=== PATIENT | female | born 1945 | race Caucasian/White ===

== ENCOUNTER 2021-11-03 09:59 | Emergency (ER) | payer MEDICARE, SELFPAY ==
[2021-11-03 10:11] VITALS: BP 100/70; PULSE 87; RESP 18; TEMP 36.9; O2SAT 86; BMI 26.6
--- NOTE | 2021-11-03 10:22 | XR_ITS ---
PROCEDURE INFORMATION: Exam: XR Chest Exam date and time: 11/03/2021 10:22 AM Age: 76 years old Clinical indication: Shortness of breath; Additional info: R/O pnuemonia TECHNIQUE: Imaging protocol: XR of the chest. Views: 2 views. COMPARISON: CR CXR1VP XR chest portable 12/17/2018 12:59 AM FINDINGS: Tubes, catheters and devices: There are sternal wires. Lungs: There are patchy infiltrates throughout the periphery of the left lung. Pleural spaces: No pleural effusion. No pneumothorax. Heart/Mediastinum: The heart is mildly enlarged. Bones/joints: Unremarkable for age. IMPRESSION: Patchy infiltrates throughout the left lung. These findings may be secondary to a bacterial or atypical pneumonia, including viral pneumonia.
[2021-11-03 11:21] VITALS: O2SAT 93
--- NOTE | 2021-11-03 11:27 | HMH.EDGENADL ---
ED Disposition Clinical Impression: CAP (community acquired pneumonia) Qualifiers: Laterality: left Lung location: lower lobe of lung Qualified Code(s): J18.9 - Pneumonia, unspecified organism Disposition: Home, Self-Care Condition on Discharge: Good Additional Instructions: Please return to the ED with any new or worsening symptoms including any worsening shortness of breath, any chest pain. Prescriptions: Amoxicillin/Potassium Clav [Augmentin 875-125 Tablet] 1 tab PO Q12H #14 tab Transmission Status: Pending to [facility] Azithromycin [Azithromycin 500mg Tab] 500 mg PO DAILY #5 tab Transmission Status: Pending to [facility] Referrals: Pawan Navarro [Primary Care Provider] - - Critical Care Critical Care Time: No Attestation: On 11/03/21, the high probability of a clinically significant, sudden or life threatening deterioration of the following system(s) required my full and direct attention, intervention and personal management. The time I documented below is in addition to time spent performing reported procedures but includes the following listed in this critical care notation. Medical Decision Making - Medical Records Medical records reviewed: Yes: I reviewed the patient's medical records. - Jose Luis Inquiry Pt receiving controlled substance: No Vital Signs: 11/03/21 10:11 11/03/21 11:21 Temperature 98.5 F Temperature Source Oral Pulse Rate [Left Radial] 87 Respiratory Rate 18 Blood Pressure [Right Arm] 100/70 L Blood Pressure Mean [Right Arm] 80 02 Sat by Pulse Oximetry 86 L 93 L Oxygen Delivery Method Room Air Nasal Cannula Oxygen Flow Rate (LPM) 2 Orders (Tests/Meds): ED MEDICATIONS Generic Name Dose Route Start Last Admin Trade Name Freq PRN Reason Stop Dose Admin Ceftriaxone Sodium 2 gm/ 100 mls @ 200 mls/hr 11/03/21 11:30 11/03/21 11:23 Sodium Chloride IV 11/17/21 11:29 200 mls/hr Q24H JONATHAN Administration Medical Decision Narrative: Patient is a 76-year-old female presents the ED today for further evaluation of cough, congestion. Patient states that symptoms been going on for the last couple of days, and has not had any red flag symptoms of syncope, chest pain, significantly worsening shortness of breath. Patient has a history of COPD, given this and the likelihood of pneumonia will order chest x-ray two-view for further evaluation. Patient not meeting any objective sepsis or sirs criteria at this time. Mild hypoxia noted at the time of triage, however patient states he has been 88% at home, and uses her supplemental oxygen throughout the day, does not had increasing usage Chest x-ray obtained with evidence of left-sided lower zone pneumonia, which could be viral or bacterial. Given the patient has a history of COPD, I have offered admission, as this would be typical for patients with COPD, however after further discussion with the patient she is requesting to go home, think this is a reasonable decision given that the patient is not hypoxic, is not having any activity limitation is able to ambulate. I will give her first dose of antibiotics here through an IV with 2 g of IV Rocephin, and we will treat outpatient with cefdinir 300 mg twice a day. Patient given instructions on the usage of this medication, given that otherwise would have this patient dated I discussed extensive return precautions with her including any worsening shortness of breath, any chest pain, any presyncope, or any new or worsening symptoms I want her to return to the ED, patient's [id number] is also at bedside, and will be able to take care of the patient at home, patient has verbalized understanding with these instructions. General Adult HPI - General Chief complaint: Shortness of Breath/Dyspnea Stated complaint: possible pna Time Seen by Provider: 11/03/21 10:05 Mode of Arrival: Ambulatory Limitations: No Limitations Description of Symptoms (Recalled from ER Tria
[2021-11-03 12:24] VITALS: BP 137/78; PULSE 78; RESP 20; TEMP 36.6; O2SAT 93
== END 2021-11-03 12:26 | disposition home or self-care (01) ==
PROVIDERS: Emergency Provider Student in an Organized Health Care Education/Training Program; PCP Family Medicine
DX: J18.9 Pneumonia, unspecified organism (principal); Z87.891 Personal history of nicotine dependence
CPT/HCPCS: 71046; 96372; 99282; J0696

== ENCOUNTER 2023-06-03 17:17 | Emergency (ER) | payer MEDICARE, SELFPAY ==
[2023-06-03 17:19] VITALS: BP 116/49; PULSE 69; RESP 18; TEMP 36.7; O2SAT 98; BMI 26.2
[2023-06-03 18:00] VITALS: BP 131/68; PULSE 72; O2SAT 94
--- NOTE | 2023-06-03 18:16 | PC.NURSE ---
LAB CALLED FOR BLOOD DRAW
[2023-06-03 18:30] VITALS: BP 109/55; PULSE 72; RESP 16; O2SAT 95
--- NOTE | 2023-06-03 18:31 | HMH.EDGENADL ---
Discharge Plan Disposition Patient Disposition: Home, Self-Care Condition: Good Chief Complaint: Dental/Oral Prescriptions Prescriptions: No Action furosemide 40 MG Tablet 40 mg PO DAILY atorvastatin 40 MG Tablet 40 mg PO DAILY isosorbide mononitrate 30 MG Tablet 30 mg PO DAILY potassium chloride [K-Tab] 10 MEQ Tablet.Er 10 meq PO DAILY aspirin [Aspir-81] 81 MG Tablet.Dr 81 mg PO DAILY metoprolol succinate 25 MG Tab.Er.24h 12.5 mg PO DAILY apixaban 5 MG tablet 5 mg PO BID amoxicillin-pot clavulanate 1 EACH tablet 1 tab PO Q12H Qty: 14 0RF azithromycin 500 MG tablet 500 mg PO DAILY Qty: 5 0RF Referrals Follow up/Referrals: Provider,Referral, MD [Primary Care Provider] - See instructions Clinical Impressions Clinical Impression: Viral pharyngitis Instructions Patient Instructions: Viral Pharyngitis Discharge ED Provider: Zakia Carter General Adult HPI General Chief complaint: Dental/Oral Stated complaint: PAIN MOUTH/EAR Time Seen by Provider: 06/03/23 17:21 Mode of Arrival: Ambulatory Source of Information: Patient Limitations: No Limitations Description of Symptoms (Recalled from ER Triage Doc. by RN): Patient reports swelling in her mouth for 1 month and bilateral ear pain. History of Present Illness HPI narrative: Patient has a PMHx significant for CAD status post CABG x3, colon cancer who presents to the ED with complaints of tongue swelling and bilateral ear pain. Patient notes that for the past 3 to 4 days, she has been experiencing tongue swelling, which is worse in the morning, and also experiencing pain from lesions on her tongue. Furthermore, patient notes that she has been experiencing bilateral ear pain which she describes as a pressure sensation. notes that in the morning, feels as if the patient's voice is muffled due to tongue swelling. Patient denies any fevers, chills, chest pain, shortness of breath. Related Data Home Medications Medication Instructions Recorded Confirmed aspirin 81 mg tablet,delayed 81 mg PO DAILY HEART HEALTH 12/17/18 11/03/21 release (Aspir-) atorvastatin 40 mg tablet 40 mg PO DAILY High cholesterol 12/17/18 11/03/21 furosemide 40 mg tablet 40 mg PO DAILY Fluid 12/17/18 11/03/21 isosorbide mononitrate 30 mg 30 mg PO DAILY High blood pressure 12/17/18 11/03/21 tablet,extended release 24 hr metoprolol succinate 25 mg 12.5 mg PO DAILY HTN 12/17/18 11/03/21 tablet,extended release 24 hr potassium chloride 10 mEq 10 meq PO DAILY Supplement 12/17/18 11/03/21 tablet,extended release (K-Tab) apixaban 5 mg tablet 5 mg PO BID Blood thinner 11/03/21 11/03/21 Previous Rx's Medication Instructions Recorded amoxicillin 875 mg-potassium 1 tab PO Q12H #14 tabs 11/03/21 clavulanate 125 mg tablet azithromycin 500 mg tablet 500 mg PO DAILY #5 tabs 11/03/21 Allergies Allergy/AdvReac Type Severity Reaction Status Date / Time No Known Allergies Allergy Verified 12/17/18 00:46 [facility] Disclaimer: The information contained in this section may have been updated after the patient was seen, as this information can be updated by other users. Social History Smoking Status: Never smoker alcohol intake: never current occupational status: retired Travel in the last 8 weeks: None ROS Obtained: Yes All systems reviewed & no additional complaints except as documented Physical Exam General General appearance: alert and in no apparent distress Head Head exam: atraumatic, normocephalic and normal inspection Eye Eye exam: Present normal appearance, PERRL and EOMI; Absent scleral icterus or nystagmus ENT ENT exam: Present normal exam, mucous membranes moist and normal external ear exam Neck Neck exam: Present normal inspection, full ROM and trachea midline Chest Chest inspection: Present normal inspection and symmetric chest wall rise; Absent tenderness Respiratory Respirator
--- NOTE | 2023-06-03 18:48 | PC.NURSE ---
LAB at to collect blood
[2023-06-03 19:09] LABS: Basophils % 0.4 % (0.1-2.0); Eosinophils # 0.1 K/mm3 (0.0-0.4); Eosinophils % 1.1 % (0.1-12.0); Hematocrit 35.4 % (37.0-47.0); Hemoglobin 11.4 g/dL (12.2-16.2); Lymphocytes # 1.4 K/mm3 (0.7-4.5); Lymphocytes % 20.1 % (10-50); Mean Corpuscular HGB Conc 32.2 g/dL (31.8-35.4); Mean Corpuscular Hemoglobin 30.2 pg (27.0-31.2); Mean Corpuscular Volume 93.9 fl (81-99); Mean Platelet Volume 9.7 fl (7.4-10.4); Monocytes # 0.3 K/mm3 (0.1-1.0); Monocytes % 4.9 % (1.7-9.3); Neutrophils # 4.9 K/mm3 (1.8-7.8); Neutrophils % 73.5 % (37.0-80.0); Platelet Count 258 K/mm3 (142-424); Red Blood Count 3.77 M/mm3 (4.20-5.40); Red Cell Distribution Width 14.6 % (11.5-17.5); White Blood Count 6.7 K/mm3 (4.8-10.8)
[2023-06-03 19:14] LABS: Alanine Aminotransferase 15 U/L (12-78); Albumin Level 3.4 g/dl (3.5-5.0); Alkaline Phosphatase 93 U/L (38-126); Anion Gap 9.6 mEq/L (5-15); Aspartate Amino Transferase 24 U/L (14-36); Bilirubin,Total 0.9 mg/dl (0.2-1.3); Blood Urea Nitrogen 10 mg/dl (7-17); Carbon Dioxide 34 mmol/L (22.0-30.0); Chloride 100 mmol/L (98-107); Creatinine Clearance Estimated 54 mL/min (50-200); Estimated Glomerular Filt Rate 61 ml/min (>60); GFR (African American) 74 ML/MIN (>60); Globulin 3.5 g/dL (1.3-3.2); Glucose 100 mg/dl (74-100); Potassium 3.6 mmoL/L (3.5-5.1); Sodium 140 mmol/L (136-145); Total Protein,Serum 6.9 g/dl (6.3-8.2)
[2023-06-03 20:13] VITALS: BP 112/75; PULSE 70; RESP 16; TEMP 36.7; O2SAT 95
== END 2023-06-03 20:24 | disposition home or self-care (01) ==
PROVIDERS: Emergency Provider Emergency Medicine
DX: J02.9 Acute pharyngitis, unspecified (principal); B34.9 Viral infection, unspecified; H92.03 Otalgia, bilateral; I25.10 Atherosclerotic heart disease of native coronary artery without angina pectoris
CPT/HCPCS: 80053; 85025; 99283

== ENCOUNTER → 2023-07-11 15:14 | Outpatient (CLI) | payer MEDICARE, SELFPAY ==
--- NOTE | 2023-07-11 15:18 | US_ITS ---
FINAL REPORT CLINICAL HISTORY: ENLARGED LYMPHNODE FINDINGS: Limited sonographic images of the neck soft tissue were obtained. No enlarged lymph nodes are identified. The parotids and submandibular glands are normal. No fluid collection is identified. IMPRESSION: No enlarged lymph nodes identified. Reviewed, Interpreted and Dictated by Sukhjinder Massey III, MD Transcribed by Franca Murillo Authenticated and . [facility]
== END ==
LOC: RAD 15:14
PROVIDERS: Visit Provider Nurse Practitioner Family
DX: R59.0 Localized enlarged lymph nodes (principal)
CPT/HCPCS: 76536

== ENCOUNTER 2023-09-01 15:32 | Inpatient (IN) | payer MEDICARE, SELFPAY ==
[2023-09-01] VITALS (12 sets, daily range): BP systolic 88–121; BP diastolic 48–74; PULSE 78–95; RESP 16–25; TEMP 36.7–37.1; O2SAT 79–97; BMI 22.8; BMI 24.1
--- NOTE | 2023-09-01 15:42 | ECG_ITS ---
APPROVED REPORT Exam: Resting ECG HR:92 bpm ECG Measurements Heart Rate 92 AXES WY 191 P 70 QRSd 152 QRS 15 QT 399 T 5 QTc 449 Conclusion SINUS RHYTHM WITH OCCASIONAL SUPRAVENTRICULAR PREMATURE COMPLEXES INTRAVENTRICULAR CONDUCTION DELAY [130+ ms QRS DURATION] INFERIOR MYOCARDIAL INFARCTION , PROBABLY OLD [40+ ms Q WAVE AND/OR ST/T ABNORMALITY IN II/aVF] ABNORMAL ECG UNCONFIRMED REPORT Electronically signed by : Ryan Hagen MD 09/02/2023 10:18:43
--- NOTE | 2023-09-01 15:47 | PC.NURSE ---
ROOM AIR SAT 79%, PT REPORTS SHE WEARS O2 AT 2.5L/NC AT NIGHT. PT PLACED ON 2.5L/NC AT THIS TIME PT REPORTS ALLERGY TO STEROIDS THEY DON'T AGREE WITH ME DR MOSHER NOTIFIED
--- NOTE | 2023-09-01 16:05 | XR_ITS ---
FINAL REPORT CLINICAL HISTORY: dyspnea COMPARISON: 11/03/2021 FINDINGS: SINGLE-VIEW CHEST The heart size is normal. The patient is status post median sternotomy. The lungs are clear. There is no pneumothorax. IMPRESSION: No acute cardiopulmonary process. Reviewed, Interpreted and Dictated by Sukhjinder Massey III, MD Transcribed by Franca Murillo Authenticated and [facility]
--- NOTE | 2023-09-01 16:05 | PC.NURSE ---
DR MOSHER AT BEDSIDE
--- NOTE | 2023-09-01 16:08 | HMH.EDGENADL ---
Discharge Plan Disposition Patient Disposition: Admitted Prescriptions Prescriptions: No Action furosemide 40 MG Tablet 40 mg PO DAILY atorvastatin 40 MG Tablet 40 mg PO DAILY isosorbide mononitrate 30 MG Tablet 30 mg PO DAILY potassium chloride [K-Tab] 10 MEQ Tablet.Er 10 meq PO DAILY aspirin [Aspir-81] 81 MG Tablet.Dr 81 mg PO DAILY metoprolol succinate 25 MG Tab.Er.24h 12.5 mg PO DAILY apixaban 5 MG tablet 5 mg PO BID amoxicillin-pot clavulanate 1 EACH tablet 1 tab PO Q12H Qty: 14 0RF azithromycin 500 MG tablet 500 mg PO DAILY Qty: 5 0RF Referrals Follow up/Referrals: Provider,Referral, MD [Primary Care Provider] - See instructions Clinical Impressions Clinical Impression: Acute hypoxic respiratory failure, COVID-19, Non-ST elevation PR (NSTEMI), Compensated cardiac failure, Generalized weakness Discharge ED Provider: Ludwin Chao General Adult HPI General Chief complaint: Weakness Stated complaint: covid positive and weakness Time Seen by Provider: 09/01/23 16:00 Mode of Arrival: Wheelchair Source of Information: Patient Limitations: No Limitations Description of Symptoms (Recalled from ER Triage Doc. by RN): PT REPORTS + AT HOME COVID TEST, FATIGUE, SORE THROAT, COUGH AND CONGESTION History of Present Illness HPI narrative: Patient is a 78-year-old female presented today with multiple complaints. She states she has been fatigued having blood coming from her right ear for which she is on amoxicillin starting yesterday, sore throat, cough, congestion and a home positive COVID test today. She denies any fevers or chills. Denies any chest pain. Denies any other symptoms. Related Data Home Medications Medication Instructions Recorded Confirmed aspirin 81 mg tablet,delayed 81 mg PO DAILY HEART HEALTH 12/17/18 11/03/21 release (Aspir-) atorvastatin 40 mg tablet 40 mg PO DAILY High cholesterol 12/17/18 11/03/21 furosemide 40 mg tablet 40 mg PO DAILY Fluid 12/17/18 11/03/21 isosorbide mononitrate 30 mg 30 mg PO DAILY High blood pressure 12/17/18 11/03/21 tablet,extended release 24 hr metoprolol succinate 25 mg 12.5 mg PO DAILY HTN 12/17/18 11/03/21 tablet,extended release 24 hr potassium chloride 10 mEq 10 meq PO DAILY Supplement 12/17/18 11/03/21 tablet,extended release (K-Tab) apixaban 5 mg tablet 5 mg PO BID Blood thinner 11/03/21 11/03/21 Previous Rx's Medication Instructions Recorded amoxicillin 875 mg-potassium 1 tab PO Q12H #14 tabs 11/03/21 clavulanate 125 mg tablet azithromycin 500 mg tablet 500 mg PO DAILY #5 tabs 11/03/21 Allergies Allergy/AdvReac Type Severity Reaction Status Date / Time STERIODS AdvReac Uncoded 09/01/23 16:21 [facility] Disclaimer: The information contained in this section may have been updated after the patient was seen, as this information can be updated by other users. Social History Smoking Status: Former smoker alcohol intake: never current occupational status: retired Travel in the last 8 weeks: None ROS Obtained: Yes All systems reviewed & no additional complaints except as documented Physical Exam General General appearance: alert Respiratory Respiratory exam: Present normal lung sounds bilaterally (Bibasilar crackles 79% on room air); Absent respiratory distress, wheezes, stridor, accessory muscle use or prolonged expiratory phase Cardiovascular Cardiovascular exam: Present regular rate; Absent tachycardia Abdominal Exam Abdominal exam: Present soft; Absent distention or tenderness Neurological Exam Neurological exam: Present alert, oriented X3, CN II-XII intact, normal gait and motor sensory deficit Medical Decision Making Jose Luis Inquiry Pt receiving controlled substance: No Vital Signs: 09/01/23 15:34 09/01/23 15:40 09/01/23 16:00 Temperature 98.0 F Temperature Source Oral Pulse Rate 94 H 89 Pulse Rate [Apical] 95 H Respiratory Rate 1
[2023-09-01 16:09] LABS: Influenza A, PCR Not Detected (NotDetected); Influenza B, PCR Not Detected (NotDetected)
--- NOTE | 2023-09-01 16:13 | PC.NURSE ---
XR AT BEDSIDE
[2023-09-01 16:15] LABS: Basophils % 0.3 % (0.1-2.0); Eosinophils % 0.3 % (0.1-12.0); Hematocrit 32.8 % (37.0-47.0); Hemoglobin 10.5 g/dL (12.2-16.2); Lymphocytes # 1.5 K/mm3 (0.7-4.5); Lymphocytes % 29.3 % (10-50); Mean Corpuscular HGB Conc 32.1 g/dL (31.8-35.4); Mean Corpuscular Hemoglobin 28.2 pg (27.0-31.2); Mean Corpuscular Volume 87.9 fl (81-99); Mean Platelet Volume 10.8 fl (7.4-10.4); Monocytes # 0.4 K/mm3 (0.1-1.0); Monocytes % 8.9 % (1.7-9.3); Neutrophils # 3.1 K/mm3 (1.8-7.8); Neutrophils % 61.3 % (37.0-80.0); Platelet Count 226 K/mm3 (142-424); Red Blood Count 3.73 M/mm3 (4.20-5.40); Red Cell Distribution Width 17.3 % (11.5-17.5)
[2023-09-01 16:27] LABS: VBG Base Excess 6.7 mmol/L (-2.4-2.3); VBG HCO3 31.1 mmol/L (23-30); VBG Oxygen Saturation 72.6 % (50-70); VBG PCO2 48.2 mmol/L (35-51); VBG PH 7.43 mmol/L (7.31-7.41); VBG PO2 40.5 mmol/L (28-40); VBG Total CO2 32.5 mmol/L (23-27)
[2023-09-01 16:30] LABS: Chloride 94 mmol/L (98-107); Potassium 3.2 mmoL/L (3.5-5.1); Sodium 135 mmol/L (136-145)
[2023-09-01 16:32] LABS: Alanine Aminotransferase 28 U/L (12-78); Aspartate Amino Transferase 99 U/L (14-36); Blood Urea Nitrogen 15 mg/dl (7-17); Creatinine Clearance Estimated 49 mL/min (50-200); Estimated Glomerular Filt Rate 61 ml/min (>60); GFR (African American) 74 ML/MIN (>60)
[2023-09-01 16:33] LABS: Albumin Level 3.5 g/dl (3.5-5.0); Albumin/Globulin Ratio 1.1 (1.1-1.8); Alkaline Phosphatase 79 U/L (38-126); Anion Gap 7.2 mEq/L (5-15); Bilirubin,Total 0.7 mg/dl (0.2-1.3); Calcium 8.3 mg/dl (8.4-10.2); Carbon Dioxide 37 mmol/L (22.0-30.0); Globulin 3.2 g/dL (1.3-3.2); Glucose 121 mg/dl (74-100); Magnesium 1.9 mg/dl (1.6-2.3); Phosphorous 3.3 mg/dl (2.5-4.5); Total Protein,Serum 6.7 g/dl (6.3-8.2)
[2023-09-01 16:42] LABS: Coronavirus 19, PCR Detected (NotDetected)
[2023-09-01 16:43] LABS: NT Pro Brain Natriuretic Pep. 12500 pg/mL (0-450)
--- NOTE | 2023-09-01 16:48 | PC.NURSE ---
1646 CRITICAL TROP 13.1 RECEIVED FROM [facility] IN LAB. PT NAME AND R/V, DR MOSHER NOTIFIED AT THIS TIME. NO NEW ORDERS 1647 DR MOSHER AT PT'S BEDSIDE
--- NOTE | 2023-09-01 17:19 | PC.NURSE ---
Dr. Chao on phone consult with Dr. Bolton
--- NOTE | 2023-09-01 17:28 | PC.NURSE ---
Dr. Chao speaking with hospitalist
--- OUTSIDE RECORDS SUMMARY | 2023-09-01 18:30 | XMS_ITS | Continuity of Care Document ---
Author Name Unknown Address [address], [place] [id number] Organization [facility] Phone Care Team Providers Care Snow Plow Tractor Operator Name Role Phone ECTOR NICOLE Unavailable ECTOR NICOLE Primary Attending ECTOR NICOLE Admitting DECLINED, PCP Primary Care Unavailable ALLERGIES AND ADVERSE REACTIONS ALLERGIES AND ADVERSE REACTIONS Code System Allergy Substance Adverse Reaction Date Reaction (Severity) Comment Status Reported By Updated By No Known Allergies [id number] on November 27, 2021 2:36:51 PM [facility] RESULTS Patient: LESLEY Garcia Date of : [birth year] LABORATORY RESULTS Information is not available LABORATORY NARRATIVE RESULTS Information is not available RADIOLOGY RESULTS ORDER 100: CT NECK SOFT TISS UE W (LOINC: 58288-0) ORDER DATE: July 28, 2023 2:09:00 PM [facility] PATHOLOGY NARRATIVE RESULTS Information is not available MICROBIOLOGY RESULTS No Micro Labs/Results Exist for Patient BLOOD ADMIN RESULTS Information is not available MEDICATIONS HOME MEDICATIONS Status RXNORM Medication Dose Route Frequency Dates Comments R eported By
--- OUTSIDE RECORDS SUMMARY | 2023-09-01 18:30 | XMS_ITS | Continuity of Care Document ---
Author Name Unknown Address [address] [place] [phone] Organization [facility] Phone Care Team Providers Care Bobbin Presser Name Role Phone ECTOR NICOLE Unavailable ECTOR NICOLE Primary Attending VICTOR MANUEL PLUNKETT Primary Care ECTOR NICOLE Admitting ALLERGIES AND ADVERSE REACTIONS ALLERGIES AND ADVERSE REACTIONS Code System Allergy Substance Adverse Reaction Date Reaction (Severity) Comment Status Reported By Updated By No Known Allergies [id number] on November 27, 2021 2:36:51 PM UTC RESULTS Patient: LESLEY Garcia Date of : [birth year] LABORATORY RESULTS ORDER 300: CBC AUTO W DIFF ( LOINC: 70824-9) ORDER DATE: July 22, 2023 9:03:00 PM UTC Specimen Source: Whole Blood PERFORMING LAB: [address] [id number] Result Comment: Final Result Date: July 22, 2023 9:31:00 PM UTC (TECH: HC) LOINC TEST FLAG RESULT REFERENCE RANGE UPDA DORIS BY 6690-2 Leukocytes [#/volume ] in Blood by Automated count N 7.6 10^3/uL 4.5 10^3/uL - 11.5 10^3/uL July 22, 2023 9:31:00 PM UTC (TECH: HC) 789-8 Erythrocytes [#/volu me] in Blood by Automated count L 3.80 10^6/uL 4.25 10^6/uL - 5.57 10^6/uL July 22, 2023 9:31:00 PM UTC (TECH: HC) 718-7 Hemoglobin
--- OUTSIDE RECORDS SUMMARY | 2023-09-01 18:30 | XMS_ITS | Continuity of Care Document ---
Author Name Unknown Address [address] [place], [place] [id number] Organization [facility] Phone Care Team Providers Care Financial Aid Counselor Name Role Phone ECTOR NICOLE Unavailable ECTOR NICOLE Primary Attending ECTOR NICOLE Admitting DECLINED, PCP Primary Care Unavailable ALLERGIES AND ADVERSE REACTIONS ALLERGIES AND ADVERSE REACTIONS Code System Allergy Substance Adverse Reaction Date Reaction (Severity) Comment Status Reported By Updated By No Known Allergies [id number] on November 27, 2021 2:36:51 PM [facility] RESULTS Patient: LESLEY Garcia Date of : [birth year] LABORATORY RESULTS Information is not available LABORATORY NARRATIVE RESULTS Information is not available RADIOLOGY RESULTS ORDER 100: CT NECK SOFT TISS UE W (LOINC: 58901-8) ORDER DATE: July 28, 2023 2:09:00 PM [facility] PATHOLOGY NARRATIVE RESULTS Information is not available MICROBIOLOGY RESULTS No Micro Labs/Results Exist for Patient BLOOD ADMIN RESULTS Information is not available MEDICATIONS HOME MEDICATIONS Status RXNORM Medication Dose Route Frequency Dates Comments R eported By
--- OUTSIDE RECORDS SUMMARY | 2023-09-01 18:30 | XMS_ITS | Continuity of Care Document ---
Author Name Unknown Address [address] [place] [phone] Organization [facility] Phone Care Team Providers Care Tip Tester Name Role Phone ECTOR NICOLE Unavailable ECTOR NICOLE Primary Attending VICTOR MANUEL PLUNKETT Primary Care ECTOR NICOLE Admitting ALLERGIES AND ADVERSE REACTIONS ALLERGIES AND ADVERSE REACTIONS Code System Allergy Substance Adverse Reaction Date Reaction (Severity) Comment Status Reported By Updated By No Known Allergies [id number] on November 27, 2021 2:36:51 PM UTC RESULTS Patient: LESLEY Garcia Date of : [birth year] LABORATORY RESULTS ORDER 100: BUN (LOINC: 3094- 0) ORDER DATE: July 22, 2023 9:03:00 PM UTC Specimen Source: Serum/Plasm a PERFORMING LAB: [address] [id number] Result Comment: Final Result Date: July 22, 2023 11:21:00 PM UTC (TECH: RJV) LOINC TEST FLAG RESULT REFERENCE RANGE UPDA DORIS BY 3094-0 Urea nitrogen [Mass/volume] in Serum or Plasma N 10 mg/dL 7 mg/dL - 18 mg/dL July 22 023 11:21:00 PM UTC (TECH: RJV) ORDER 200: CREATININE (LOINC : 2160-0) ORDER DATE: July 22, 2023 9:03:00 PM UTC Specimen Source: Serum/Plasm a PERFORMING LAB: [address] [id number] Res
--- OUTSIDE RECORDS SUMMARY | 2023-09-01 18:30 | XMS_ITS | Clinical Summary ---
Author Name Unknown Address [address] [place] [address] Phone Organization [facility] Address [address] [place] [address] Phone Care Team Providers Care Perfume And Toilet Water Maker Name Role Bhavani Wilson Unavailable Conditions or Problems Problem Name Problem Code Onset Date Status Entry Date Provider Comment Standard Description Annotate Smoking cessation counseling 753807014 (SNOMED CT) 12/03 Active 12/03 Bhavani Driscoll Procedure carried out on subject COPD with acute exacerbation 786393973 (SNOMED CT) 11/30 Active 11/30 Ramila L Acute exacerbation of chronic obstructive airways disease COVID-19 coronavirus Pneumonia (J12.82) 201248643 (SNOMED CT) 11/30 Active 11/30 Ramila L COVID-19 Acute on chronic respiratory failure with hypoxia 34424606 (SNOMED CT) 11/30 Active 11/30 Ramila L Acute respiratory failure Chronic systolic heart failure 500895951 (SNOMED CT) 11/30 Active 11/30 Ramila L Chronic
--- OUTSIDE RECORDS SUMMARY | 2023-09-01 18:30 | XMS_ITS | Continuity of Care Document ---
Author Name Unknown Address [address] [place] [phone] Organization [facility] Phone Care Team Providers Care Sort Supervisor Name Role Phone ECTOR NICOLE Unavailable ECTOR NICOLE Primary Attending VICTOR MANUEL PLUNKETT Primary Care ECTOR NICOLE Admitting ALLERGIES AND ADVERSE REACTIONS ALLERGIES AND ADVERSE REACTIONS Code System Allergy Substance Adverse Reaction Date Reaction (Severity) Comment Status Reported By Updated By No Known Allergies [id number] on November 27, 2021 2:36:51 PM UTC RESULTS Patient: LESLEY Garcia Date of : [birth year] LABORATORY RESULTS ORDER 100: BUN (LOINC: 3094- 0) ORDER DATE: July 22, 2023 9:03:00 PM UTC Specimen Source: Serum/Plasm a PERFORMING LAB: [address] [id number] Result Comment: Final Result Date: July 22, [...] UTC Specimen Source: Serum/Plasm a PERFORMING LAB: [address] [id number] Res
--- OUTSIDE RECORDS SUMMARY | 2023-09-01 18:30 | XMS_ITS | Continuity of Care Document ---
Author Name Unknown Address [address] [place] [phone] Organization [facility] Phone Care Team Providers Care Mountain Or Glacier Guide Name Role Phone ECTOR NICOLE Unavailable ECTOR NICOLE Primary Attending VICTOR MANUEL PLUNKETT Primary Care ECTOR NICOLE Admitting ALLERGIES AND ADVERSE REACTIONS ALLERGIES AND ADVERSE REACTIONS Code System Allergy Substance Adverse Reaction Date Reaction (Severity) Comment Status Reported By Updated By No Known Allergies [id number] on November 27, 2021 2:36:51 PM UTC RESULTS Patient: LESLEY Garcia Date of : [birth year] LABORATORY RESULTS ORDER 100: BUN (LOINC: 3094- 0) ORDER DATE: July 22, 2023 9:03:00 PM UTC Specimen Source: Serum/Plasm a PERFORMING LAB: [address] [id number] Result Comment: Final Result Date: July 22, [...] UTC Specimen Source: Serum/Plasm a PERFORMING LAB: [address] [id number] Res
--- NOTE | 2023-09-01 20:03 | EXP.HP ---
History of Present Illness *Admission Date: 09/01/23 *History of present illness: This is a 78-year-old female with PMHx of CHF, CAD s/p CABG, Afib, who presented today increased and worsening shortness of breath and weakness. She has multiples complaints. Patient usually on 2L of NC at bedtime. Patient reported about 3 weeks ago, having a chest pain, that increased with excerption. patient did took two nitroglycerin SL and improved but never completly resolved. After that has been increasing her SOB and fatigue. Recently, she states she has been fatigued having blood coming from her right ear for which she is on amoxicillin starting yesterday, sore throat, cough, congestion and a home positive COVID test today. She denies any fevers or chills. Denies any chest pain. Denies any other symptoms. Admitted for further treatment. [facility] Disclaimer: The information contained in this section may have been updated after the patient was seen, as this information can be updated by other users. Medical History (Updated 09/01/23 @ 22:42 by Andrés Lantigua APRN) Colon cancer Dementia Myocardial infarction Surgical History (Updated 09/01/23 @ 22:26 by Andrés Lantigua APRN) H/O heart artery stent History of colon resection Hx of CABG Hx of cholecystectomy Status post carotid surgery Social History (Updated 09/01/23 @ 20:04 by Mayda Goff RN) Smoking Status: Former smoker alcohol intake: never current occupational status: retired Travel in the last 8 weeks: None Review of Systems Review of Systems Review of systems:: pertinent systems reviewed and negative unless documented below Meds Home Medications and Allergies Home Medications Medication Instructions Recorded Confirmed Type aspirin 81 mg tablet,delayed 81 mg PO DAILY HEART HEALTH 12/17/18 09/01/23 History release (Aspir-) atorvastatin 40 mg tablet 40 mg PO DAILY High cholesterol 12/17/18 09/01/23 History furosemide 40 mg tablet 40 mg PO DAILY Fluid 12/17/18 09/01/23 History isosorbide mononitrate 30 mg 30 mg PO DAILY High blood pressure 12/17/18 09/01/23 History tablet,extended release 24 hr metoprolol succinate 25 mg 12.5 mg PO DAILY HTN 12/17/18 09/01/23 History tablet,extended release 24 hr potassium chloride 10 mEq 10 meq PO DAILY Supplement 12/17/18 09/01/23 History tablet,extended release (K-Tab) apixaban 5 mg tablet 5 mg PO BID Blood thinner 11/03/21 09/01/23 History amoxicillin 500 mg-potassium 1 tab PO BID ear infection 09/01/23 09/01/23 History clavulanate 125 mg tablet nitroglycerin 0.4 mg sublingual 0.4 mg sublingual Q5MINP PRN Angina 09/01/23 09/01/23 History tablet (Nitrostat) ondansetron 8 mg disintegrating 8 mg translingual Q8H PRN Nausea 09/01/23 09/01/23 History tablet And Vomiting ranolazine 500 mg tablet,extended 500 mg PO BID 09/01/23 09/01/23 History release,12 hr New Prescriptions to Start Prescriptions: Allergies Allergy/AdvReac Type Severity Reaction Status Date / Time STERIODS AdvReac Uncoded 09/01/23 16:21 Exam Data for Last 24 hours Vital signs and Labs for Last 24 Hours: Temp Pulse Resp BP Pulse Ox O2 Del Method O2 Flow Rate 98.6 F 84 18 101/60 L 93 L Room Air 3 09/01/23 19:55 09/01/23 19:55 09/01/23 19:55 09/01/23 19:55 09/01/23 19:55 09/01/23 19:55 09/01/23 17:30 Laboratory Results - last 24 hr 09/01/23 16:00: WBC 5.0, RBC 3.73 L, Hgb 10.5 L, Hct 32.8 L, MCV 87.9, MCH 28.2, MCHC 32.1, RDW 17.3, Plt Count 226, MPV 10.8 H, Neut % (Auto) 61.3, Lymph % (Auto) 29.3, [place] % (Auto) 8.9, Eos % (Auto) 0.3, Baso % (Auto) 0.3, Neut # (Auto) 3.1, Lymph # (Auto) 1.5, [place] # (Auto) 0.4, Eos # (Auto) 0.0, Baso # (Auto) 0.0, Sodium 135 L, Potassium 3.2 L, Chloride 94 L, Carbon Dioxide 37 H, Anion Gap 7.2, BUN 15, Creatinine 0.90, Estimated Creat Clear 49, Estimated GFR 61, Est GFR ( Amer) 74, Glucose 121 H, Calcium 8.3 L, Phosphorus 3.3, Magnesium 1.9, Total Bilir
--- NOTE | 2023-09-01 20:24 | PC.NURSE ---
Pt a/0x4. Pt lung sounds clear, heart rhythm regular, st depression on tele. Pt states she has felt mild-moderate intermittent chest pain for the past week. Granddaughter in room states she went to check on pt today and pt looked very sick and pt was SOA so she gave her a home covid test that was positive. Pt normally wears 2L nc at night at home but is currently requiring 2 L while awake. Due to symptoms, pt granddaughter brought pt to ER. Pt and family both agreeable to DNI status at this time.
[2023-09-02] VITALS (9 sets, daily range): BP systolic 93–115; BP diastolic 50–60; PULSE 70–90; RESP 16–18; TEMP 36.7–37.1; O2SAT 90–95; BMI 24.3
--- NOTE | 2023-09-02 00:13 | PC.NURSE ---
food and drinks moved off of BS table at this time. Pt reminded she is NPO at this time. Pt verbalizes understanding.
--- NOTE | 2023-09-02 04:36 | PC.NURSE ---
Pt continues to necessitate 2 L nc at all times to keep o2 >90%. A/Ox4. Pt has not voiced any c/o to staff t/o shift. Ambulating to BR with 1x assist. NPO since midnight. Pt in airborne/contact precautions. Call light within reach.
--- NOTE | 2023-09-02 07:22 | EXP.ACUTE.PN ---
Subjective *Date: 09/02/23 *Time: 17:31 Interval history: Patient stable on 2 L this morning on exam. Denies any further chest pain. No nausea or vomiting. N.p.o. pending cardiology eval. Troponin stable on serial labs overnight. Medical Exam Vital signs and Labs for Last 24 Hours: Vital Signs Temp Pulse Pulse Resp BP BP Pulse Ox 09/02/23 07:00 09/02/23 05:00 09/02/23 04:00 84 09/02/23 04:00 98.7 F 88 18 115/60 93 L 09/02/23 03:00 09/02/23 00:54 09/02/23 00:00 83 09/01/23 23:57 98.8 F 81 16 90/48 L 95 09/01/23 22:51 09/01/23 20:00 82 09/01/23 21:00 09/01/23 19:55 98.6 F 84 18 101/60 L 93 L 09/01/23 20:00 09/01/23 18:42 98.0 F 82 17 99/60 L 92 L 09/01/23 18:19 98.2 F 85 20 99/60 L 09/01/23 18:00 78 22 99/60 L 94 L 09/01/23 17:30 82 18 100/59 L 93 L 09/01/23 16:49 85 18 97/63 L 92 L 09/01/23 16:30 79 22 88/53 L 92 L 09/01/23 16:00 89 25 H 121/74 93 L 09/01/23 15:40 94 H 100/66 L 93 L 09/01/23 15:34 98.0 F 95 H 18 100/66 L 79 L O2 Del Method O2 Flow Rate 09/02/23 07:00 Nasal Cannula 2 09/02/23 05:00 Nasal Cannula 2 09/02/23 04:00 09/02/23 04:00 Nasal Cannula 2 09/02/23 03:00 Nasal Cannula 2 09/02/23 00:54 Nasal Cannula 2 09/02/23 00:00 09/01/23 23:57 Nasal Cannula 2 09/01/23 22:51 Nasal Cannula 2 09/01/23 20:00 09/01/23 21:00 Nasal Cannula 2 09/01/23 19:55 Nasal Cannula 2 09/01/23 20:00 Nasal Cannula 2 09/01/23 18:42 Room Air 09/01/23 18:19 Room Air 09/01/23 18:00 09/01/23 17:30 Nasal Cannula 3 09/01/23 16:49 09/01/23 16:30 09/01/23 16:00 Nasal Cannula 3 09/01/23 15:40 Nasal Cannula 3 09/01/23 15:34 Room Air Intake and Output 09/01/23 09/01/23 09/02/23 15:59 23:59 07:59 Output Total 700 / 700 0 / 0 Balance -700 / -700 0 / 0 Output: Output, Urine Amount 700 / 700 0 / 0 Other: Number of Unmeasured Voids 1 Weight 64.41 kg 65.799 kg 66.315 kg Patient Weight 09/02/23 23:59 Weight 66.315 kg Laboratory Results - last 24 hr 09/01/23 16:00: WBC 5.0, RBC 3.73 L, Hgb 10.5 L, Hct 32.8 L, MCV 87.9, MCH 28.2, MCHC 32.1, RDW 17.3, Plt Count 226, MPV 10.8 H, Neut % (Auto) 61.3, Lymph % (Auto) 29.3, [place] % (Auto) 8.9, Eos % (Auto) 0.3, Baso % (Auto) 0.3, Neut # (Auto) 3.1, Lymph # (Auto) 1.5, [place] # (Auto) 0.4, Eos # (Auto) 0.0, Baso # (Auto) 0.0, Sodium 135 L, Potassium 3.2 L, Chloride 94 L, Carbon Dioxide 37 H, Anion Gap 7.2, BUN 15, Creatinine 0.90, Estimated Creat Clear 49, Estimated GFR 61, Est GFR ( Amer) 74, Glucose 121 H, Calcium 8.3 L, Phosphorus 3.3, Magnesium 1.9, Total Bilirubin 0.7, AST 99 H, ALT 28, Alkaline Phosphatase 79, Troponin I 13.10 H, NT-Pro-B Natriuret Pep 35817 H, Total Protein 6.7, Albumin 3.5, Globulin 3.2, Albumin/Globulin Ratio 1.1, SARS-CoV-2 (PCR) Detected A, Influenza A Untype (PCR) Not detected, Influenza Type B (PCR) Not detected 09/01/23 16:19: VBG pH 7.43 H, VBG pCO2 48.2, VBG pO2 40.5 H, VBG HCO3 31.1 H, VBG Total CO2 32.5 H, VBG O2 Saturation 72.6 H, VBG Base Excess 6.7 H 09/01/23 17:35: Lactate 1.0 09/01/23 20:25: Troponin I 11.70 H 09/01/23 22:00: Troponin I 11.80 H I & O for Labs for Last 24 Hours: Intake & Output 08/30/23 08/31/23 09/01/23 09/02/23 23:59 23:59 23:59 23:59 Output Total 700 / 700 0 / 0 Balance -700 / -700 0 / 0 Weight 65.799 kg 66.315 kg Constitutional: Present no acute distress, average body habitus and chronically ill appearing Respiratory: Present normal respiratory effort; Absent rhonchi, wheezes or crackles Cardiac: Present Reg Rate and Rhythm GI: Present normal bowel sounds; Absent tenderness Extremities: Present normal inspection and full ROM Skin: Present intact; Absent erythema Neuro: Present Grossly Intact, alert, awake, oriented x 3 and moves all extremities Assessment and Plan *Assessmen
--- NOTE | 2023-09-02 07:33 | HMH.PHAINT1 ---
Pharmacy Intervention Comments: Med reconciliation completed using external fill history and patient interview
[2023-09-02 08:46] LABS: Basophils % 0.2 % (0.1-2.0); Eosinophils % 0.6 % (0.1-12.0); Hematocrit 29.5 % (37.0-47.0); Hemoglobin 9.7 g/dL (12.2-16.2); Lymphocytes # 1.2 K/mm3 (0.7-4.5); Lymphocytes % 26.8 % (10-50); Mean Corpuscular HGB Conc 32.7 g/dL (31.8-35.4); Mean Corpuscular Hemoglobin 28.5 pg (27.0-31.2); Mean Platelet Volume 10.9 fl (7.4-10.4); Monocytes # 0.4 K/mm3 (0.1-1.0); Monocytes % 8.1 % (1.7-9.3); Neutrophils % 64.4 % (37.0-80.0); Platelet Count 199 K/mm3 (142-424); Red Blood Count 3.39 M/mm3 (4.20-5.40); Red Cell Distribution Width 17.1 % (11.5-17.5); White Blood Count 4.6 K/mm3 (4.8-10.8)
[2023-09-02 08:57] LABS: Chloride 99 mmol/L (98-107); Sodium 137 mmol/L (136-145)
[2023-09-02 08:58] LABS: Potassium 3.3 mmoL/L (3.5-5.1)
[2023-09-02 09:00] LABS: Alanine Aminotransferase 23 U/L (12-78); Alkaline Phosphatase 67 U/L (38-126); Anion Gap 5.3 mEq/L (5-15); Aspartate Amino Transferase 79 U/L (14-36); Bilirubin,Total 0.7 mg/dl (0.2-1.3); Blood Urea Nitrogen 16 mg/dl (7-17); Carbon Dioxide 36 mmol/L (22.0-30.0); Cholesterol 95 mg/dl (140-200); Creatinine Clearance Estimated 50 mL/min (50-200); Estimated Glomerular Filt Rate 61 ml/min (>60); GFR (African American) 74 ML/MIN (>60); Triglycerides 86 mg/dl (30-150); VLDL Cholesterol 17 mg/dL (0-40)
[2023-09-02 09:01] LABS: Albumin/Globulin Ratio 1.1 (1.1-1.8); Calcium 7.9 mg/dl (8.4-10.2); Chol/HDL Ratio 3.8 (1-3.5); Globulin 2.8 g/dL (1.3-3.2); Glucose 103 mg/dl (74-100); HDL Cholesterol 25 mg/dl (40-60); Magnesium 1.9 mg/dl (1.6-2.3); Total Protein,Serum 5.8 g/dl (6.3-8.2)
[2023-09-02 09:12] LABS: Direct LDL Cholesterol 52.66 mg/dL (100-129)
--- NOTE | 2023-09-02 10:40 | EXP.CARD.CON ---
History of Present Illness History of Present Illness Consult date: 09/02/23 Requesting physician: Alli Summers Consult reason: shortness of breath Chief complaint: weakness History of present illness: 78-year-old white female with past medical history of coronary artery disease status post CABG in 1988 and paroxysmal atrial fibrillation on presented to emergency department last night with multiple complaints of sore throat, bloody drainage coming from right ear, cough, congestion and a positive home COVID test yesterday morning. Patient reports she has been feeling poorly for the last few days with symptoms described previously. Upon presentation to emergency department an EKG was performed which showed a ventricular rate of [address] segment elevation, some nonspecific ST changes in the lateral precordial leads, T wave inversions in inferior leads as well as a nonspecific interventricular conduction delay with old Q waves in inferior leads. Significant labs were as follows: WBC 5, hemoglobin 10.5, sodium 135, potassium 3.2, creatinine 0.9, troponin 13.1, proBNP 12,500 and was COVID-positive. Initial chest x-ray was negative for acute cardiopulmonary process. After initial troponin came back elevated a bedside ultrasound was performed per ER doctor which showed a reduced left ventricular ejection fraction with inferior lateral hypokinesis consistent with an old OH. Patient does endorse that 2 weeks ago she developed midsternal chest pain radiating into back associated with shortness of breath that persisted despite taking nitro. Eventually chest pain did resolve but patient continued to have worsening shortness of breath since then. Patient reports she is short of breath with any activity and at rest. Patient was admitted for NSTEMI and COVID. Repeat troponin after admission was 11.8. [facility] Disclaimer: The information contained in this section may have been updated after the patient was seen, as this information can be updated by other users. Medical History (Updated 09/02/23 @ 10:54 by Lydia Cutler APRN) Colon cancer Dementia Myocardial infarction Surgical History (Updated 09/01/23 @ 22:26 by Andrés Lantigua APRN) H/O heart artery stent History of colon resection Hx of CABG Hx of cholecystectomy Status post carotid surgery Social History (Updated 09/01/23 @ 20:04 by Mayda Goff RN) Smoking Status: Former smoker alcohol intake: never current occupational status: retired Travel in the last 8 weeks: None Review of Systems Constitutional Constitutional: Reports weakness *Cardiovascular Cardiovascular: Reports chest pain and Reports dyspnea *Respiratory Respiratory: Reports dyspnea *Neurologic Neurologic: Reports weakness Exam Data for Last 24 hours Vital signs and Labs for Last 24 Hours: Temp Pulse Resp BP Pulse Ox O2 Del Method O2 Flow Rate 98.5 F 70 18 98/50 L 90 L Nasal Cannula 2 09/02/23 07:31 09/02/23 08:00 09/02/23 07:31 09/02/23 07:31 09/02/23 07:31 09/02/23 09:00 09/02/23 09:00 Laboratory Results - last 24 hr 09/01/23 16:00: WBC 5.0, RBC 3.73 L, Hgb 10.5 L, Hct 32.8 L, MCV 87.9, MCH 28.2, MCHC 32.1, RDW 17.3, Plt Count 226, MPV 10.8 H, Neut % (Auto) 61.3, Lymph % (Auto) 29.3, [place] % (Auto) 8.9, Eos % (Auto) 0.3, Baso % (Auto) 0.3, Neut # (Auto) 3.1, Lymph # (Auto) 1.5, [place] # (Auto) 0.4, Eos # (Auto) 0.0, Baso # (Auto) 0.0, Sodium 135 L, Potassium 3.2 L, Chloride 94 L, Carbon Dioxide 37 H, Anion Gap 7.2, BUN 15, Creatinine 0.90, Estimated Creat Clear 49, Estimated GFR 61, Est GFR ( Amer) 74, Glucose 121 H, Calcium 8.3 L, Phosphorus 3.3, Magnesium 1.9, Total Bilirubin 0.7, AST 99 H, ALT 28, Alkaline Phosphatase 79, Troponin I 13.10 H, NT-Pro-B Natriuret Pep 80257 H, Total Protein 6.7, Albumin 3.5, Globulin 3.2, Albumin/Globulin Ratio 1.1, SARS-CoV-2 (PCR) Detected A, Influenza A Untype (PCR) Not detected, Influenza Type B (PCR) Not detected 09/01/23
--- NOTE | 2023-09-02 16:06 | PC.NURSE ---
Pt is alert and oriented x4. Pt has been ambulating to the bathroom with standby assistance throughout shift. Pt has complained of diarrhea x3, dillon LANDEROS, new orders carried out. Pt has complained of hemorrhoids bothering her, dillon LANDEROS, new orders carried out. Pt lung sounds clear. Abdomen soft, nontender, bowel sounds active. Pt has remained on 2L NC throughout shift maintaining >90%. Pt is in airborne/contact precautions. Pt is NSR on tele. Pt has had no other complaints this shift. Bed in lowest position, call light in reach.
--- NOTE | 2023-09-02 17:32 | CA_ITS ---
APPROVED REPORT EXAM: Comprehensive 2D, Doppler, and color-flow Echocardiogram Button Sawyer: Nakia Gomez CRT Ht: 5 ft 6 in Wt: 142lbs BSA: 1.73 BP: 101/60 mmHg Indications: covid +, chf, cabg, stent, colon ca, afib, home o2 2D Dimensions Left Atrium 4.21 cm F: 2.7 - 3.8 LVEF (Escalante's) 42.40 % F: 54 - 74 LVOT 1.75 cm (M/F) 1.5-2.5 LV Volume 121.00 mL F: 46 - 106 LV Volume Index 69.9 mL/m2 F: 29 - 61 LA Volume 40.60 mL LA Volume Index 23.47 mL/m2 (M/F) 16-34 EF AP4 41.80 % EF AP2 41.2 % EF BP 42.4 % GL Strain -14.9 % M-Mode Dimensions RVDd 2.90 cm (0.9-2.6) LVDd 5.87 cm (3.5-5.7) Ao Diam 3.42 cm (2.0-3.7) LVDs 5.12 cm (3.5-5.7) IVSd 1.32 cm (0.6-1.1) PWd 0.54 cm (0.6-1.1) EF (Teich) 27.00% FS 12.80% EDV (Teich) 171.20 mL TAPSE 1.36 (<1.7) ESV (Teich) 124.90 mL LV Diastology E Decel Time 217 (160-240 msec) E/A Ratio 1.3 MED E' 5.2 (>= 7 cm/sec) MED A' 5.60 cm/s E'/MED E' Ratio 16.40 (<= 14) LAT E' 6.9 (>= 10 cm/sec) LAT A' 7.10 cm/s E/LAT E' Ratio 12.36 (<= 14) Aortic Valve AoV Peak José. 133.0 (50-130 cm/s) AO Peak GR. 7.10 mmHg Mitral Valve MV E Max José. 85.0 (40-130 cm/s) MV A Velocity 68.0 (40-130 cm/s) E/A Ratio 1.25 MV Decel. Time 217 (160-240 ms) Tricuspid Valve TR P. Velocity 148.00 cm/s RAP Estimate 10.00 mmHg RVSP 18.80 mmHg Left Ventricle The left ventricle is normal size. The left ventricular systolic function is moderately to severely reduced. There is normal left ventricular wall thickness. There is akinesis of the basal to mid inferior and inferoseptal LV senior. Grade 2 diastolic dysfunction is present. LVEF is 30%. Right Ventricle The right ventricle free wall is not well-visualized, but is grossly normal in size. The right ventricular systolic function is normal. Atria The left atrium size is normal. The right atrium size is normal. There is possible Doppler evidence of interatrial shunt. Aortic Valve The aortic valve is mildly thickened. There is no aortic valvular stenosis. No aortic regurgitation is present. Mitral Valve The mitral valve leaflets are mildly thickened. No evidence of mitral valve stenosis. Mild to moderate mitral regurgitation. Tricuspid Valve Tricuspid valve leaflets are thin and pliable. Trace tricuspid regurgitation. There is insufficient TR jet to estimate RVSP. Pulmonic Valve The pulmonary valve is normal in structure. Trace pulmonic regurgitation. Great Vessels The aortic root is normal in size. The ascending aorta is normal in size. IVC is normal in size and collapses >50% with inspiration. Pericardium There is no pericardial effusion. Other Information Study Quality: Fair Conclusion Moderate to severe reduction in global LV systolic function (LVEF 30%). Akinesis of the basal to mid inferior and inferoseptal LV senior. Grade 2 diastolic dysfunction. Mild to moderate MR. Possible Doppler evidence of interatrial shunt. Electronically signed by : Pallavi Hyde MD 09/04/2023 09:57:11
[2023-09-03] VITALS (25 sets, daily range): BP systolic 81–127; BP diastolic 47–80; PULSE 59–92; RESP 12–22; TEMP 36.4–37.3; O2SAT 88–100; BMI 24.4
--- NOTE | 2023-09-03 | IR_ITS ---
APPROVED REPORT Patient Location: Inpatient Utilities Estimator And Drafter: MALGORZATA Sheppard RT (R) PROCEDURES Left heart catheterization Left ventriculogram Selective coronary angiogram Left internal mammary angiography Selective engagement of saphenous vein graft to circumflex artery Selective engagement of saphenous vein graft to the right coronary Intravascular lithotripsy to the proximal LAD Drug-eluting stent deployment to the proximal ID INDICATION Subacute ST elevation myocardial infarction, Coronary artery disease, History of coronary bypass surgery, Severely calcified proximal LAD Informed consent was obtained prior to the procedure. COMPLICATIONS None Estimated Blood Loss: Less than 10 mls TECHNIQUE One percent lidocaine used to anesthetize the right groin. The right femoral artery was accessed via the Seldinger technique and a 5 Japanese sheath was placed in the right femoral artery. A JL 4, JR4 catheter were used to perform left heart catheterization, left ventriculogram selective coronary angiography as well as selective engagement of the 2 vein grafts and the left internal mammary artery. At the end the diagnostic angiogram therapeutic heparin was administered giving a therapeutic ACT and the 5 Japanese sheath was exchanged for 6 Japanese sheath. A 6 Japanese JL 4 guide catheter was placed in the left main artery followed by a Choice PT extra-support wire being placed on the LAD. A 3.5 x 12 m shockwave lithotripsy balloon was advanced and deployed at 4 ro. 60 pulsations were delivered in the proximal LAD in multiple areas. Following this a 3 mm x 34 mm Catr[place]ito frontier stent was deployed at 20 ro reducing the stenosis. An additional 3 mm x 15 mm Catr[place] frontier stent was placed proximal to the for stent yet still overlapping it and deployed at 24 ro. The balloon was advanced and deployed at 24 ro throughout the 34 mm stent. Excellent angiographic results were obtained with BELTRAN III flow being present before and after the procedure. At the end the procedure the apparatus was removed the groin is reprepped closure change sheath was removed and hemostasis was achieved using Perclose device patient was transferred to the postop holding in stable condition ANGIOGRAPHIC RESULTS The left main artery Normal The left anterior descending artery Has severe proximal concentric calcifications in excess of 70%. There is a mid vessel stenosis which appears to be eccentric 80 to 90% prior to the angioplasty however after angioplasty and stenting was performed and flow was delivered this stenosis was closer to 50 to 60%. There was an additional 60 to 70% stenosis as the LAD approach the apex The circumflex artery Nondominant has stents in the proximal to mid segment. There is 40 to 50% concentric in-stent restenosis The right coronary artery Dominant and occluded at mid segment The LATIF ventriculogram reveals Dilated ventricle ejection fraction 25% The left ventricular end-diastolic pressure 10 mmHg AMBRIZ to LAD occluded Saphenous to circumflex artery occluded Saphenous to right coronary occluded IMPRESSION Critical disease and unbypassed proximal LAD with successful intravascular lithotripsy followed by drug-eluting stent deployment reducing the critical disease to 0% with 2 contiguous drug-eluting stents Significant improvement down the LAD as evidenced by what appeared to be a severe mid LAD stenosis which was secondary to streaming due to decreased flow from the critical proximal disease which then improved to 50 to 60% by increasing inflow Moderate disease throughout the circumflex artery Chronically occluded right coronary which fills via [id number] collaterals Occluded AMBRIZ graft Occluded saphenous vein graft x 2 PLAN 1. Dual antiplatelet therapy 2. LDL less tom
[2023-09-03 07:08] LABS: Chloride 99 mmol/L (98-107); Sodium 138 mmol/L (136-145)
[2023-09-03 07:11] LABS: Alanine Aminotransferase 21 U/L (12-78); Aspartate Amino Transferase 57 U/L (14-36); Bilirubin,Total 0.6 mg/dl (0.2-1.3); Blood Urea Nitrogen 14 mg/dl (7-17); Carbon Dioxide 35 mmol/L (22.0-30.0); Creatinine Clearance Estimated 50 mL/min (50-200); Estimated Glomerular Filt Rate 61 ml/min (>60); GFR (African American) 74 ML/MIN (>60)
[2023-09-03 07:12] LABS: Albumin Level 2.9 g/dl (3.5-5.0); Alkaline Phosphatase 73 U/L (38-126); Calcium 7.8 mg/dl (8.4-10.2); Globulin 2.8 g/dL (1.3-3.2); Glucose 97 mg/dl (74-100); Magnesium 1.9 mg/dl (1.6-2.3); Total Protein,Serum 5.7 g/dl (6.3-8.2)
[2023-09-03 07:30] LABS: Basophils % 0.4 % (0.1-2.0); Hematocrit 28.7 % (37.0-47.0); Lymphocytes # 1.4 K/mm3 (0.7-4.5); Lymphocytes % 36.2 % (10-50); Mean Corpuscular HGB Conc 31.5 g/dL (31.8-35.4); Mean Corpuscular Hemoglobin 27.6 pg (27.0-31.2); Mean Corpuscular Volume 87.6 fl (81-99); Mean Platelet Volume 11.2 fl (7.4-10.4); Monocytes # 0.3 K/mm3 (0.1-1.0); Neutrophils # 2.1 K/mm3 (1.8-7.8); Neutrophils % 54.4 % (37.0-80.0); Platelet Count 192 K/mm3 (142-424); Red Blood Count 3.27 M/mm3 (4.20-5.40); White Blood Count 3.9 K/mm3 (4.8-10.8)
--- NOTE | 2023-09-03 07:55 | EXP.ACUTE.PN ---
Subjective *Date: 09/03/23 *Time: 10:49 Interval history: Patient denies any chest pain this more vomiting. Stable on 2 L nasal cannula. Had several loose stools yesterday. Antibiotics have been stopped, suspect secondary to antibiotic induced diarrhea. Alert and oriented x 3. Medical Exam Vital signs and Labs for Last 24 Hours: Vital Signs Temp Pulse Pulse Resp BP Pulse Ox O2 Del Method 09/03/23 07:44 98.5 F 69 16 115/52 L 90 L Nasal Cannula 09/03/23 07:00 Nasal Cannula 09/03/23 05:00 Nasal Cannula 09/03/23 04:00 71 09/03/23 04:00 99.0 F 79 20 105/55 L 88 L Nasal Cannula 09/03/23 03:00 Nasal Cannula 09/03/23 01:00 Nasal Cannula 09/03/23 00:00 99.1 F 78 22 116/64 92 L Nasal Cannula 09/03/23 00:00 78 09/02/23 23:00 Nasal Cannula 09/02/23 21:00 Nasal Cannula 09/02/23 22:01 Nasal Cannula 09/02/23 20:54 Nasal Cannula 09/02/23 20:00 72 09/02/23 20:00 98.3 F 75 16 106/52 L 95 Nasal Cannula 09/02/23 18:49 Nasal Cannula 09/02/23 17:00 Nasal Cannula 09/02/23 16:00 70 09/02/23 12:00 90 09/02/23 15:54 98.0 F 73 18 93/51 L 91 L Nasal Cannula 09/02/23 15:00 Nasal Cannula 09/02/23 12:59 Nasal Cannula 09/02/23 11:50 98.4 F 72 18 101/54 L 90 L Nasal Cannula 09/02/23 11:00 Nasal Cannula 09/02/23 09:00 Nasal Cannula 09/02/23 08:00 Nasal Cannula 09/02/23 08:00 70 O2 Flow Rate 09/03/23 07:44 09/03/23 07:00 2.5 09/03/23 05:00 2.5 09/03/23 04:00 09/03/23 04:00 09/03/23 03:00 2.5 09/03/23 01:00 2.5 09/03/23 00:00 2.5 09/03/23 00:00 09/02/23 23:00 2.5 09/02/23 21:00 2 09/02/23 22:01 2.5 09/02/23 20:54 2.5 09/02/23 20:00 09/02/23 20:00 2.5 09/02/23 18:49 2 09/02/23 17:00 2 09/02/23 16:00 09/02/23 12:00 09/02/23 15:54 2 09/02/23 15:00 2 09/02/23 12:59 2 09/02/23 11:50 2 09/02/23 11:00 2 09/02/23 09:00 2 09/02/23 08:00 2 09/02/23 08:00 Intake and Output 09/02/23 09/02/23 09/03/23 15:59 23:59 07:59 Intake Total 240 / 480 240 / 480 Output Total 500 / 500 0 / 500 0 / 0 Balance -260 / -20 240 / -20 0 / 0 Intake: Intake, Oral Amount 240 / 480 240 / 480 Output: Output, Urine Amount 500 / 500 0 / 500 0 / 0 Other: Number of Unmeasured Voids 1 1 1 Number of Bowel Movements 1 Weight 66.451 kg Patient Weight 09/03/23 23:59 Weight 66.451 kg Laboratory Results - last 24 hr 09/02/23 08:28: WBC 4.6 L, RBC 3.39 L, Hgb 9.7 L, Hct 29.5 L, MCV 87.0, MCH 28.5, MCHC 32.7, RDW 17.1, Plt Count 199, MPV 10.9 H, Neut % (Auto) 64.4, Lymph % (Auto) 26.8, [place] % (Auto) 8.1, Eos % (Auto) 0.6, Baso % (Auto) 0.2, Neut # (Auto) 3.0, Lymph # (Auto) 1.2, [place] # (Auto) 0.4, Eos # (Auto) 0.0, Baso # (Auto) 0.0, Sodium 137, Potassium 3.3 L, Chloride 99, Carbon Dioxide 36 H, Anion Gap 5.3, BUN 16, Creatinine 0.90, Estimated Creat Clear 50, Estimated GFR 61, Est GFR ( Amer) 74, Glucose 103 H, Calcium 7.9 L, Magnesium 1.9, Total Bilirubin 0.7, AST 79 H, ALT 23, Alkaline Phosphatase 67, Total Protein 5.8 L, Albumin 3.0 L D, Globulin 2.8, Albumin/Globulin Ratio 1.1, Triglycerides 86, Cholesterol 95 L, LDL Cholesterol Direct 52.66 L, VLDL Cholesterol 17, HDL Cholesterol 25 L, Cholesterol/HDL Ratio 3.8 H 09/03/23 06:32: Magnesium 1.9 I & O for Labs for Last 24 Hours: Intake & Output 08/31/23 09/01/23 09/02/23 09/03/23 23:59 23:59 23:59 23:59 Intake Total 480 / 480 Output Total 700 / 700 500 / 500 0 / 0 Balance -700 / -700 -20 / -20 0 / 0 Weight 65.799 kg 66.315 kg 66.451 kg Constitutional: Present no acute distress, average body habitus and chronically ill appearing Head: Present atraumatic and normocephalic Respiratory: Present normal respiratory effort; Absent rhonchi, wheezes or crackles Cardiac: Present Reg Rate and Rhythm GI: Present normal bowel sounds; Absent te
--- NOTE | 2023-09-03 10:53 | EXP.CARD.PN ---
Subjective Subjective Date: 09/03/23 Time: 08:00 Principal diagnosis: NSTEMi, covid 19 Interval history: Patient reports feeling okay this morning. Oxygen saturation is stable on 2 L nasal cannula. Morning labs reviewed. Exam Data for Last 24 hours Vital signs and Labs for Last 24 Hours: Temp Pulse Resp BP Pulse Ox O2 Del Method O2 Flow Rate 98.5 F 69 16 115/52 L 90 L Nasal Cannula 2.5 09/03/23 07:44 09/03/23 07:44 09/03/23 07:44 09/03/23 07:44 09/03/23 07:44 09/03/23 07:44 09/03/23 07:00 Laboratory Results - last 24 hr 09/03/23 06:32: WBC 3.9 L, RBC 3.27 L, Hgb 9.0 L, Hct 28.7 L, MCV 87.6, MCH 27.6, MCHC 31.5 L, RDW 17.0, Plt Count 192, MPV 11.2 H, Neut % (Auto) 54.4, Lymph % (Auto) 36.2, Stanley % (Auto) 8.0, Eos % (Auto) 1.0, Baso % (Auto) 0.4, Neut # (Auto) 2.1, Lymph # (Auto) 1.4, Stanley # (Auto) 0.3, Eos # (Auto) 0.0, Baso # (Auto) 0.0, Sodium 138, Potassium 3.0 L, Chloride 99, Carbon Dioxide 35 H, Anion Gap 7.0, BUN 14, Creatinine 0.90, Estimated Creat Clear 50, Estimated GFR 61, Est GFR ( Amer) 74, Glucose 97, Calcium 7.8 L, Magnesium 1.9, Total Bilirubin 0.6, AST 57 H D, ALT 21, Alkaline Phosphatase 73, Total Protein 5.7 L, Albumin 2.9 L, Globulin 2.8, Albumin/Globulin Ratio 1.0 L I & O for Last 24 hours: Intake & Output 08/31/23 09/01/23 09/02/23 09/03/23 23:59 23:59 23:59 23:59 Intake Total 480 / 480 Output Total 700 / 700 500 / 500 0 / 0 Balance -700 / -700 -20 / -20 0 / 0 Weight 145 lb 1 oz 146 lb 3.2 oz 146 lb 8 oz Constitutional Constitutional: no acute distress *Routine Respiratory Exam Respiratory: Present CTA bilaterally and symmetric chest movement *Routine Cardiovascular Exam Cardiovascular: Present RRR, Normal S1 and Normal S2 *Routine Abdominal Exam Abdominal: Present soft and normoactive bowel sounds; Absent tenderness *Routine Extremities Exam Extremities: Present full ROM and normal capillary refill; Absent edema *Routine Skin Exam Skin: Present intact, dry and warm Detailed Neck Exam: Thyroids Thyroid: Absent bruit Progress Note: A&P Assessment and plan (1) Non-ST elevation CA (NSTEMI): Status: Acute (2) Acute exacerbation of CHF (congestive heart failure): Status: Acute (3) Paroxysmal atrial fibrillation: Status: Acute (4) Elevated troponin: Status: Acute (5) COVID-19: Status: Acute (6) Dyspnea: Status: Acute (7) Generalized weakness: Status: Acute (8) Q waves suggestive of previous myocardial infarction: Status: Acute (9) H/O heart artery stent: Status: Acute Assessment and Plan Assessment and Plan for All Diagnoses:: Coronary artery disease History of CABG NSTEMI -EKG from 09/01/[address] changes in lateral precordial leads with some T wave inversion in inferior lateral leads as well as Q waves in inferior leads -Initial troponin 13.1 trending down to 11.8 -Bedside echocardiogram performed in the emergency room shows reduced ejection fraction and inferior/lateral wall hypokinesis -Presentation most consistent with old inferior CA which likely happened in the last 2 weeks. Will proceed with left heart catheterization today to further evaluate. Discussed risk versus benefits with patient she is agreeable. Acute on Chronic HFrEF NYHA III -Official echo read is pending, estimated EF is30% with moderate ischemic MR. -No lower extremity edema present -Increase Lasix to 40 mg p.o. daily and continue Jardiance 10mg daily. Continue metoprolol succinate 12.5 mg daily. Will add Entresto and Aldactone when blood pressure can tolerate. Acute hypoxic respiratory failure COVID-19 -Combination COVID-19 infection and volume overload secondary to reduced ejection fraction/Old CA -Diurese with Lasix 40 mg IV daily. Paroxysmal atrial fibrillation Chadsvasc score 4 -Currently normal sinus rhythm -Patient already anticoagulated at home on Eliquis 5 mg p.o. twice daily. Will continue.
[2023-09-03 15:32] LABS: CATHL Activated Clotting Time 267 SEC (74-125)
--- NOTE | 2023-09-03 16:42 | PC.NURSE ---
Pt is alert and oriented x4. Pt has had no complaints throughout shift. Pt went down to [employer] this afternoon, upon arriving back, pt is requiring increased O2 requirements to maintain >90%. Currently, pt is on venti mask @ 9L 35%, will wean as tolerated. Pt is flat lying. Dressing on right femoral site is CDI, tegaderma and guaze in place. Area around the site is soft, no lumps or discoloration. Pt abdomen soft and nontender, pt bowel sounds active. Pt lung sounds clear. Family remains in room with patient. Call light in reach, bed in lowest position.
[2023-09-04] VITALS (7 sets, daily range): BP systolic 96–116; BP diastolic 50–60; PULSE 60–84; RESP 16–21; TEMP 36.4–36.9; O2SAT 91–95; BMI 23.5
--- NOTE | 2023-09-04 05:05 | PC.NURSE ---
Patient has slept intermittently throughout shift. Patient has required non-rebreather 10L with O2 sat 92-95%. Patient will use x1 assist to transfer to [facility] [place]. Dressing to right femoral site is C/D/I. B/P maintained MAP >65 throughout shift. Patient voiced no c/o of pain. Call light within reach.
[2023-09-04 06:28] LABS: Basophils % 0.2 % (0.1-2.0); Eosinophils # 0.1 K/mm3 (0.0-0.4); Eosinophils % 1.6 % (0.1-12.0); Hematocrit 30.3 % (37.0-47.0); Hemoglobin 9.6 g/dL (12.2-16.2); Lymphocytes # 2.1 K/mm3 (0.7-4.5); Lymphocytes % 29.8 % (10-50); Mean Corpuscular HGB Conc 31.8 g/dL (31.8-35.4); Mean Corpuscular Hemoglobin 28.5 pg (27.0-31.2); Mean Corpuscular Volume 89.6 fl (81-99); Mean Platelet Volume 10.5 fl (7.4-10.4); Monocytes # 0.4 K/mm3 (0.1-1.0); Neutrophils # 4.4 K/mm3 (1.8-7.8); Neutrophils % 63.4 % (37.0-80.0); Platelet Count 190 K/mm3 (142-424); Red Blood Count 3.38 M/mm3 (4.20-5.40); Red Cell Distribution Width 16.8 % (11.5-17.5)
[2023-09-04 06:32] LABS: Chloride 99 mmol/L (98-107); Potassium 3.3 mmoL/L (3.5-5.1); Sodium 139 mmol/L (136-145)
[2023-09-04 06:35] LABS: Alanine Aminotransferase 22 U/L (12-78); Albumin Level 3.2 g/dl (3.5-5.0); Albumin/Globulin Ratio 1.1 (1.1-1.8); Alkaline Phosphatase 76 U/L (38-126); Anion Gap 7.3 mEq/L (5-15); Aspartate Amino Transferase 71 U/L (14-36); Bilirubin,Total 0.7 mg/dl (0.2-1.3); Blood Urea Nitrogen 16 mg/dl (7-17); Carbon Dioxide 36 mmol/L (22.0-30.0); Creatinine Clearance Estimated 48 mL/min (50-200); Estimated Glomerular Filt Rate 61 ml/min (>60); GFR (African American) 74 ML/MIN (>60); Globulin 2.9 g/dL (1.3-3.2); Glucose 119 mg/dl (74-100); Magnesium 1.9 mg/dl (1.6-2.3); Total Protein,Serum 6.1 g/dl (6.3-8.2)
--- NOTE | 2023-09-04 06:38 | PC.NURSE ---
Patient was able to be slowly weaned from non-rebreather and is currently wearing 5L NC at this time with O2 sat 90%.
--- NOTE | 2023-09-04 09:21 | EXP.CARD.PN ---
Subjective Subjective Date: 09/04/23 Time: 08:30 Principal diagnosis: NSTEMi, covid 19 Interval history: Patient is status post left heart cath, see report below. Patient denies chest pain or shortness of breath this morning. Morning labs reviewed. [facility] 09/03/2023 IMPRESSION Critical disease and unbypassed proximal LAD with successful intravascular lithotripsy followed by drug-eluting stent deployment reducing the critical disease to 0% with 2 contiguous drug-eluting stents Significant improvement down the LAD as evidenced by what appeared to be a severe mid LAD stenosis which was secondary to streaming due to decreased flow from the critical proximal disease which then improved to 50 to 60% by increasing inflow Moderate disease throughout the circumflex artery Chronically occluded right coronary which fills via [id number] collaterals Occluded AMBRIZ graft Occluded saphenous vein graft x 2 PLAN 1. Dual antiplatelet therapy 2. LDL less than 55 to be achieved with high intensity statin 3. Recommend LifeVest prior to discharge 4. I suspect ejection fraction will improve based on the critical calcified nature of the proximal LAD and the significant improvement following lithotripsy and drug-eluting stenting cleared I suspect a significant component of the anterior wall is hibernating 5. Standard therapy for systolic heart failure 6. Cardiac rehabilitation Exam Data for Last 24 hours Vital signs and Labs for Last 24 Hours: Temp Pulse Resp BP Pulse Ox O2 Del Method O2 Flow Rate 97.6 F 74 21 111/55 L 92 L Nasal Cannula 4 09/04/23 07:59 09/04/23 07:59 09/04/23 07:59 09/04/23 07:59 09/04/23 08:00 09/04/23 09:00 09/04/23 09:00 FiO2 50 09/03/23 18:30 Laboratory Results - last 24 hr 09/03/23 15:50: Activated Clotting Time 267 H* 09/04/23 05:38: WBC 7.0 D, RBC 3.38 L, Hgb 9.6 L, Hct 30.3 L, MCV 89.6, MCH 28.5, MCHC 31.8, RDW 16.8, Plt Count 190, MPV 10.5 H, Neut % (Auto) 63.4, Lymph % (Auto) 29.8, [place] % (Auto) 5.0, Eos % (Auto) 1.6, Baso % (Auto) 0.2, Neut # (Auto) 4.4, Lymph # (Auto) 2.1, [place] # (Auto) 0.4, Eos # (Auto) 0.1, Baso # (Auto) 0.0, Sodium 139, Potassium 3.3 L, Chloride 99, Carbon Dioxide 36 H, Anion Gap 7.3, BUN 16, Creatinine 0.90, Estimated Creat Clear 48, Estimated GFR 61, Est GFR ( Amer) 74, Glucose 119 H D, Calcium 8.0 L, Magnesium 1.9, Total Bilirubin 0.7, AST 71 H, ALT 22, Alkaline Phosphatase 76, Total Protein 6.1 L, Albumin 3.2 L D, Globulin 2.9, Albumin/Globulin Ratio 1.1 I & O for Last 24 hours: Intake & Output 09/01/23 09/02/23 09/03/23 09/04/23 23:59 23:59 23:59 23:59 Intake Total 480 / 480 360 / 360 Output Total 700 / 700 500 / 500 0 / 0 0 / 0 Balance -700 / -700 -20 / -20 0 / 0 360 / 360 Weight 145 lb 1 oz 146 lb 3.2 oz 146 lb 8 oz 141 lb 3.2 oz Constitutional Constitutional: no acute distress *Routine Respiratory Exam Respiratory: Present CTA bilaterally and symmetric chest movement *Routine Cardiovascular Exam Cardiovascular: Present RRR, Normal S1 and Normal S2 *Routine Abdominal Exam Abdominal: Present soft and normoactive bowel sounds; Absent tenderness *Routine Extremities Exam Extremities: Present full ROM and normal capillary refill; Absent edema *Routine Skin Exam Skin: Present intact, dry and warm Detailed Neck Exam: Thyroids Thyroid: Absent bruit Progress Note: A&P Assessment and plan (1) Non-ST elevation IL (NSTEMI): Status: Acute (2) Acute exacerbation of CHF (congestive heart failure): Status: Acute (3) Paroxysmal atrial fibrillation: Status: Acute (4) Elevated troponin: Status: Acute (5) COVID-19: Status: Acute (6) Dyspnea: Status: Acute (7) Generalized weakness: Status: Acute (8) Q waves suggestive of previous myocardial infarction: Status: Acute (9) H/O heart artery stent: Status: Acute Assessment and Plan Assessment and Plan for All Diagnoses:: Coronary artery dis
--- NOTE | 2023-09-04 10:05 | HMH.OTEV ---
OT Inpatient Evaluation Rehab OT IP Evaluation Start: 09/04/23 09:11 Freq: ONCE Status: Active Protocol: Document 09/04/23 10:01 JOS (Rec: 09/04/23 10:[address] [facility] [id number]) Rehab OT IP Assessment Subjective History Pt oriented x 4 on arrival. Pt agreeable to engage in therapy evaluation. Pt admitted on 09/01/23 due to Hypoxia and respiratory failure. This is a 78-year- old female with PMHx of CHF, CAD s/p CABG, Afib, who presented today increased and worsening shortness of breath and weakness. She has multiples complaints. Patient usually on 2L of NC at bedtime. Patient reported about 3 weeks ago, having a chest pain, that increased with excerption. patient did took two nitroglycerin SL and improved but never completly resolved. After that has been increasing her SOB and fatigue . Recently, she states she has been fatigued having blood coming from her right ear for which she is on amoxicillin starting yesterday, sore throat, cough, congestion and a home positive COVID test today. Pt reports prior to being in the hospital she lived at home with her . Pt claims normally she is independent with all ADLs and IADLs. She does wear o2 at night 2L. She has a rolling walker at home, but normally does not have to use it. Pt has a ramp to enter her home. Subjective I am hoping to get to go home . Objective Patient Orientation Person,Place,Birthday,Year Right Upper Extremity Gross ROM WFL Left Upper Extremity Gross ROM WFL Bed Mobility bed mobility-scooting,bed mobility - supine/sit Assist Level Supervision/Stand by Transfer Training
--- NOTE | 2023-09-04 10:21 | HMH.PTEV ---
Physical Therapy Evaluation Rehab PT IP Evaluation Start: 09/04/23 09:11 Freq: ONCE Status: Active Protocol: Document 09/04/23 10:14 MEETAngelina (Rec: 09/04/23 10:21 ROSITA [id number]) Subjective/History History History Pt is a 78 y/o female who presented to [facility] on 09/01/23 with report of worsened shortness of breath and weakness. Per history & physical note, patient usually on 2L of NC at bedtime. Patient reported about 3 weeks ago, having a chest pain, that increased with excerption . patient did took two nitroglycerin SL and improved but never completly resolved. After that has been increasing her SOB and fatigue. Recently , she states she has been fatigued having blood coming from her right ear for which she is on amoxicillin starting yesterday, sore throat, cough , congestion and a home positive COVID test today. She denies any fevers or chills. Denies any chest pain . Denies any other symptoms. Admitted for further treatment . Medical History: Colon cancer, Dementia, Myocardial infarction Subjective Subjective Pt reports she lives in a single-story home with a ramp to enter with her . Pt reports prior to hospitalization she was independent with all ADLs, cooking and cleaning. Pt states I have a walker I use when I feel like I need it. Pt reports she wears 2LNC at night time. Pt is currently on 4LNC. New diagnosis of cancer in past 12 Yes months? Rehab PT IP Eval Objective Appearance Patient Behavior Appropriate,Cooperative Patient Orientation Person,Place,Name,Birthday Difficulty following instructions none Speech Pattern
--- NOTE | 2023-09-04 12:17 | EXP.ACUTE.PN ---
Subjective *Date: 09/04/23 *Time: 12:17 Interval history: Patient's oxygenation is improved this morning. Still necessitating 4 L however. Continues to be weak but tolerating good p.o. intake. Afebrile. Denies chest pain, nausea, vomiting. Therapy evaluating patient this morning. Tolerated heart cath yesterday without incident. Medical Exam Vital signs and Labs for Last 24 Hours: Vital Signs Temp Pulse Pulse Resp BP Pulse Ox O2 Del Method 09/04/23 08:00 75 09/04/23 10:40 Nasal Cannula 09/04/23 09:00 Nasal Cannula 09/04/23 08:00 92 L 09/04/23 07:59 97.6 F 74 21 111/55 L 94 L Nasal Cannula 09/04/23 04:00 60 09/04/23 00:00 70 09/04/23 04:00 97.5 F L 69 16 96/58 L 92 L Non-Rebreather 09/04/23 06:51 Nasal Cannula 09/04/23 05:00 Non-Rebreather 09/04/23 03:00 Non-Rebreather 09/04/23 01:00 Non-Rebreather 09/03/23 20:00 60 09/04/23 00:00 98.3 F 64 17 104/55 L 95 Non-Rebreather 09/03/23 23:00 Venturi Mask 09/03/23 22:30 69 18 102/49 L 92 L Venturi Mask 09/03/23 21:30 67 18 92/49 L 94 L Non-Rebreather 09/03/23 20:30 65 18 92/48 L 94 L Non-Rebreather 09/03/23 19:30 67 20 89/47 L 92 L Non-Rebreather 09/03/23 21:00 Non-Rebreather 09/03/23 20:00 Non-Rebreather 09/03/23 20:00 97.5 F L 67 16 98/64 L 98 Venturi Mask 09/03/23 18:30 66 20 94/52 L 92 L Venturi Mask 09/03/23 18:00 64 20 90/53 L 96 Non-Rebreather 09/03/23 18:49 Venturi Mask 09/03/23 16:39 70 09/03/23 17:30 72 20 100/50 L 96 Non-Rebreather 09/03/23 17:46 67 09/03/23 17:46 66 09/03/23 17:00 Venturi Mask 09/03/23 17:00 64 17 81/51 L 96 Venturi Mask 09/03/23 16:30 70 18 97/58 L 99 Venturi Mask 09/03/23 16:15 70 18 99/60 L 100 Non-Rebreather 09/03/23 16:00 74 20 92/52 L 88 L Venturi Mask 09/03/23 15:45 97.9 F 80 20 104/60 L 91 L Nasal Cannula 09/03/23 15:30 78 20 121/74 95 Room Air 09/03/23 15:25 80 12 125/77 97 09/03/23 15:20 81 14 125/80 95 09/03/23 15:20 92 H 09/03/23 15:15 92 H 17 127/75 92 L Simple Mask 09/03/23 13:00 Nasal Cannula O2 Flow Rate FiO2 09/04/23 08:00 09/04/23 10:40 4 09/04/23 09:00 4 09/04/23 08:00 4 09/04/23 07:59 5 09/04/23 04:00 09/04/23 00:00 09/04/23 04:00 15 09/04/23 06:51 5 09/04/23 05:00 10 09/04/23 03:00 10 09/04/23 01:00 10 09/03/23 20:00 09/04/23 00:00 15 09/03/23 23:00 15 09/03/23 22:30 15 09/03/23 21:30 15 09/03/23 20:30 15 09/03/23 19:30 15 09/03/23 21:00 15 09/03/23 20:00 15 09/03/23 20:00 15 09/03/23 18:30 15 50 09/03/23 18:00 8 09/03/23 18:49 15 09/03/23 16:39 09/03/23 17:30 10 09/03/23 17:46 09/03/23 17:46 09/03/23 17:00 12 09/03/23 17:00 15 50 09/03/23 16:30 9 35 09/03/23 16:15 10 09/03/23 16:00 15 50 09/03/23 15:45 3 09/03/23 15:30 09/03/23 15:25 09/03/23 15:20 09/03/23 15:20 09/03/23 15:15 6 09/03/23 13:00 3 Intake and Output 09/03/23 09/04/23 09/04/23 23:59 07:59 15:59 Intake Total 360 / 360 Output Total 0 / 0 0 / 0 Balance 0 / 0 360 / 360 Intake: Intake, Oral Amount 360 / 360 Output: Output, Urine Amount 0 / 0 0 / 0 Other: Number of Voids 0 Number of Unmeasured Voids 1 1 Weight 64.047 kg Patient Weight 09/04/23 23:59 Weight 64.047 kg Laboratory Results - last 24 hr 09/03/23 15:50: Activated Clotting Time 267 H* 09/04/23 05:38: WBC 7.0 D, RBC 3.38 L, Hgb 9.6 L, Hct 30.3 L, MCV 89.6, MCH 28.5, MCHC 31.8, RDW 16.8, Plt Count 190, MPV 10.5 H, Neut % (Auto) 63.4, Lymph % (Auto) 29.8, [place] % (Auto) 5.0, Eos % (Auto) 1.6, Baso % (Auto) 0.2, Neut # (Auto) 4.4, Lymph # (Auto) 2.1, [place] # (Auto) 0.4, Eos # (Auto) 0.1, Baso # (Auto) 0.0, Sodium 139, Potassium 3.3 L,
[2023-09-05] VITALS: BP 84/68; PULSE 68; PULSE 72; RESP 19; TEMP 36.9; O2SAT 89
--- NOTE | 2023-09-05 03:20 | PC.NURSE ---
PATIENT REMAINS ON AIRBORNE/CONTACT ISOLATION DUE TO COVID. DRSG TO RIGHT GROIN C/D/I. SINUS RHYTHM/BBB ON TELEMETRY. HAS A DRY COUGH. NO C/O SOA/CP/DISCOMFORT.
[2023-09-05 04:00] VITALS: BP 96/41; PULSE 61; PULSE 72; RESP 17; TEMP 36.8; O2SAT 99; BMI 23.8
[2023-09-05 07:41] VITALS: BP 98/53; PULSE 66; RESP 16; TEMP 36.9; O2SAT 93
[2023-09-05 08:00] VITALS: PULSE 70; O2SAT 93
[2023-09-05 08:04] LABS: Chloride 99 mmol/L (98-107); Potassium 3.3 mmoL/L (3.5-5.1); Sodium 138 mmol/L (136-145)
[2023-09-05 08:07] LABS: Alanine Aminotransferase 18 U/L (12-78); Albumin Level 2.9 g/dl (3.5-5.0); Alkaline Phosphatase 71 U/L (38-126); Anion Gap 4.3 mEq/L (5-15); Aspartate Amino Transferase 61 U/L (14-36); Bilirubin,Total 0.8 mg/dl (0.2-1.3); Blood Urea Nitrogen 15 mg/dl (7-17); Carbon Dioxide 38 mmol/L (22.0-30.0); Creatinine Clearance Estimated 49 mL/min (50-200); Estimated Glomerular Filt Rate 61 ml/min (>60); GFR (African American) 74 ML/MIN (>60); Globulin 2.8 g/dL (1.3-3.2); Total Protein,Serum 5.7 g/dl (6.3-8.2)
[2023-09-05 08:08] LABS: Calcium 7.9 mg/dl (8.4-10.2); Glucose 98 mg/dl (74-100)
--- NOTE | 2023-09-05 08:46 | EXP.CARD.PN ---
Subjective Subjective Date: 09/05/23 Time: 08:00 Principal diagnosis: NSTEMi, covid 19 Interval history: Doing well this morning. Patient denies chest pain or shortness of breath. Patient has been able to ambulate to bathroom without difficulty. Morning labs reviewed creatinine remained stable at 0.9. Exam Data for Last 24 hours Vital signs and Labs for Last 24 Hours: Temp Pulse Resp BP Pulse Ox O2 Del Method O2 Flow Rate 98.4 F 66 16 98/53 L 93 L Nasal Cannula 4 09/05/23 07:41 09/05/23 07:41 09/05/23 07:41 09/05/23 07:41 09/05/23 07:41 09/05/23 07:41 09/05/23 07:41 FiO2 50 09/03/23 18:30 Laboratory Results - last 24 hr 09/05/23 06:25: Sodium 138, Potassium 3.3 L, Chloride 99, Carbon Dioxide 38 H, Anion Gap 4.3 L, BUN 15, Creatinine 0.90, Estimated Creat Clear 49, Estimated GFR 61, Est GFR ( Amer) 74, Glucose 98, Calcium 7.9 L, Total Bilirubin 0.8, AST 61 H, ALT 18, Alkaline Phosphatase 71, Total Protein 5.7 L, Albumin 2.9 L, Globulin 2.8, Albumin/Globulin Ratio 1.0 L I & O for Last 24 hours: Intake & Output 09/02/23 09/03/23 09/04/23 09/05/23 23:59 23:59 23:59 23:59 Intake Total 480 / 480 630 / 870 480 / 480 Output Total 500 / 500 0 / 0 0 / 0 0 / 0 Balance -20 / -20 0 / 0 630 / 870 480 / 480 Weight 146 lb 3.2 oz 146 lb 8 oz 141 lb 1.533 oz 142 lb 14.4 oz Microbiology Reports for the Last 24 Hours: Microbiology 09/01/23 16:43 Blood Blood Culture - Preliminary 09/01/23 16:28 Blood Blood Culture - Preliminary Constitutional Constitutional: no acute distress *Routine Respiratory Exam Respiratory: Present CTA bilaterally and symmetric chest movement *Routine Cardiovascular Exam Cardiovascular: Present RRR, Normal S1 and Normal S2 *Routine Abdominal Exam Abdominal: Present soft and normoactive bowel sounds; Absent tenderness *Routine Extremities Exam Extremities: Present full ROM and normal capillary refill; Absent edema *Routine Skin Exam Skin: Present intact, dry and warm Detailed Neck Exam: Thyroids Thyroid: Absent bruit Progress Note: A&P Assessment and plan (1) Non-ST elevation AR (NSTEMI): Status: Acute (2) Acute exacerbation of CHF (congestive heart failure): Status: Acute (3) Paroxysmal atrial fibrillation: Status: Acute (4) Elevated troponin: Status: Acute (5) COVID-19: Status: Acute (6) Dyspnea: Status: Acute (7) Generalized weakness: Status: Acute (8) Q waves suggestive of previous myocardial infarction: Status: Acute (9) H/O heart artery stent: Status: Acute Assessment and Plan Assessment and Plan for All Diagnoses:: Coronary artery disease History of CABG NSTEMI -EKG from 09/01/[address] changes in lateral precordial leads with some T wave inversion in inferior lateral leads as well as Q waves in inferior leads -Initial troponin 13.1 trending down to 11.8 -Bedside echocardiogram performed in the emergency room shows reduced ejection fraction and inferior/lateral wall hypokinesis -Presentation most consistent with old inferior AR which likely happened in the last 2 weeks. Will proceed with left heart catheterization today to further evaluate. Discussed risk versus benefits with patient she is agreeable. 09/05/2023: Patient is status post left heart catheterization. Patient received 2 continuous drug-eluting stents to proximal LAD. Please continue DAPT therapy, statin and beta-sultana. Acute on Chronic HFrEF NYHA III- Resolving Grade 2 diastolic dysfunction Mild to moderate MR -Official echo 09/02: Moderate to severe reduction in LV systolic function 30%, akinesis of the basal to mid inferior and inferoseptal LV senior, grade 2 diastolic dysfunction, mild to moderate MR, possible Doppler evidence of interatrial shunt -No lower extremity edema present -Decrease Lasix to 20 mg p.o. daily and continue Jardiance 10mg daily. Continue metoprolol succinate 12.5 mg daily. Will add Entr
[2023-09-05 10:47] LABS: Magnesium 1.9 mg/dl (1.6-2.3)
--- NOTE | 2023-09-05 14:07 | EXP.DC.SUM ---
General Admission date:: 09/01/23 Discharge date: 09/05/23 HPI HPI HPI: This is a 78-year-old female with PMHx of CHF, CAD s/p CABG, Afib, who presented today increased and worsening shortness of breath and weakness. She has multiples complaints. Patient usually on 2L of NC at bedtime. Patient reported about 3 weeks ago, having a chest pain, that increased with excerption. patient did took two nitroglycerin SL and improved but never completly resolved. After that has been increasing her SOB and fatigue. Recently, she states she has been fatigued having blood coming from her right ear for which she is on amoxicillin starting yesterday, sore throat, cough, congestion and a home positive COVID test today. She denies any fevers or chills. Denies any chest pain. Denies any other symptoms. Admitted for further treatment. Hospital Course Hospital Course Hospital Course: 78-year-old female with PMHx of CHF, CAD s/p CABG, Afib, who presented today increased and worsening shortness of breath and weakness. She has multiples complaints. Patient usually on 2L of NC at bedtime. Patient reported about 3 weeks ago, having a chest pain, that increased with excertion. On arrival ER initially started sepsis spectrum, finding to be COVID positive, possible residual. Further work up end up to find elevated troponin, with EKG showing q wave, consistent with probably old infarct. Discussed with cardiology and ER. Admitted for further treatment. Status post heart cath yesterday, 2 stents placed. Cardiology continues to follow along. Continues to require inpatient management. Anticipate discharge tomorrow. Problems addressed as follows: NSTEMI Heart failure with reduced ejection fraction; grade 2 diastolic dysfunction Paroxysmal A-fib; [id number] 4 Hx of CABG -Cardiology consulted on admission. Assisted with care through duration of hospitalization. EKG obtained 09/01/[address] changes in the lateral precordial leads and some T wave inversions in inferior leads. Initial troponin was 13.1 and trended down. Bedside echo performed in the ER showing reduced ejection fraction. Presentation most consistent with old inferior CA which likely happened in the past 2 weeks based on patient's history of symptoms. Left heart cath performed on 09/05 with placement of 2 continuous drug-eluting stents to the proximal LAD. Patient continued on dual antiplatelet therapy, statin, beta-sultana. Plan to continue cardiac meds as follows: Aspirin 81 mg p.o. daily Plavix 75 mg p.o. daily Lasix 20 mg p.o. daily Jardiance 10 mg p.o. daily Metoprolol succinate 12.5 mg p.o. daily Entresto 24/26 mg p.o. twice daily-hold for systolic less than 100 Aldactone 12.5 mg p.o. daily Atorvastatin 40 mg p.o. daily Eliquis 5 mg p.o. twice daily Official echo 09/02: Moderate to severe reduction in LV systolic function 30%, akinesis of the basal to mid inferior and inferoseptal LV senior, grade 2 diastolic dysfunction, mild to moderate MR, possible Doppler evidence of interatrial shunt. Stable to discharge home at this time. LifeVest placed on day of discharge. Plan to follow-up with cardiology in 1 week for reevaluation. - COVID19 positive: - Hypoxemia Continue supplemental oxygen, goal saturation greater 90%. Currently on 4 L. Minimal cough. Afebrile. No indication for treatment at this time. -Hypokalemia: secondary to diuresis. Potassium monitored daily. 3.3 on day of discharge. Replacing orally with 40 mEq twice daily. Continue at discharge. Will need to repeat labs when follows up as an outpatient. Stable for discharge home with follow-up with cardiology as an outpatient. LifeVest fitted prior to discharge. Spent 30 minutes in discharge counseling, documentation, discussion with cardiology, and direct care with patient. Exam Data for Last 24 hours Vital signs and Labs for Last 24 Hours: Temp Pulse Resp BP Pulse Ox O2 Del Method O2 Flow Rate 98.4 F 70 16
--- NOTE | 2023-09-09 13:51 | CARE MANAGER ---
Attempted to contact patient x2 related to hospital discharge. Left VM. WERNER Gann
== END 2023-09-05 16:21 | disposition home or self-care (01) | DRG 323 ==
LOC: ER 17:32 → 2ND 18:21
PROVIDERS: Internal Medicine; Admitting Provider Internal Medicine Adolescent Medicine; Emergency Provider Student in an Organized Health Care Education/Training Program; Visit Provider Internal Medicine Adolescent Medicine
DX: I21.4 Non-ST elevation (NSTEMI) myocardial infarction (principal); J96.01 Acute respiratory failure with hypoxia; U07.1 COVID-19; I25.10 Atherosclerotic heart disease of native coronary artery without angina pectoris; Z87.891 Personal history of nicotine dependence; Z95.1 Presence of aortocoronary bypass graft; Z85.038 Personal history of other malignant neoplasm of large intestine; F03.90 Unspecified dementia, unspecified severity, without behavioral disturbance, psychotic disturbance, mood disturbance, and anxiety; I25.2 Old myocardial infarction; Z95.5 Presence of coronary angioplasty implant and graft; I48.91 Unspecified atrial fibrillation; E87.6 Hypokalemia; Z66 Do not resuscitate; Z99.81 Dependence on supplemental oxygen
CPT/HCPCS: 0715T; 36415; 71045; 80053; 80061; 82803; 83605; 83735; 83880; 84100; 84484; 85025; 85347; 87040; 87636; 92928; 93005; 93306; 93458; 94640; 97161; 97165; 99152; 99153; 99291; C1725; C1760; C1761; C1769; C1876; C1894; C9600; J1644; J2405; Q9967

== ENCOUNTER 2023-09-10 20:07 | Inpatient (IN) | payer MEDICARE, SELFPAY ==
[2023-09-10] VITALS (10 sets, daily range): BP systolic 83–106; BP diastolic 45–64; PULSE 68–95; RESP 20–28; TEMP 37–37.1; O2SAT 77–94; BMI 22.6; BMI 21.7; BMI 26.9
--- NOTE | 2023-09-10 20:18 | XR_ITS ---
PROCEDURE INFORMATION: Exam: XR Chest Exam date and time: 09/10/2023 8:42 PM Age: 78 years old Clinical indication: Shortness of breath; Additional info: Shortness of air TECHNIQUE: Imaging protocol: Radiologic exam of the chest. Views: 1 view. COMPARISON: CR XR CHEST PORTABLE 09/01/2023 4:07 PM FINDINGS: Tubes, catheters and devices: Postsurgical clips in the right neck. Life vest overlies the patient. Lungs: Left basilar opacities. Interstitial prominence in the lower lungs. Pleural spaces: Small left pleural effusion. No pneumothorax. Heart/Mediastinum: Stable cardiomediastinal silhouette, partially obscured on the left secondary to opacities. Aortic calcifications. Bones/joints: Median sternotomy wires, 1st wire is fractured similar to prior. IMPRESSION: Left basilar opacities which may represent pneumonia and/or atelectasis with pleural fluid. Bibasilar interstitial prominence may reflect pulmonary edema.
--- NOTE | 2023-09-10 20:21 | ECG_ITS ---
APPROVED REPORT Exam: Resting ECG HR:94 bpm ECG Measurements Heart Rate 94 AXES TN 191 P 60 QRSd 120 QRS 10 QT 370 T 95 QTc 422 Conclusion SINUS RHYTHM POSSIBLE ANTERIOR MYOCARDIAL INFARCTION , OF INDETERMINATE AGE [30 ms Q WAVE IN V3/V4, OR R < 0.2 mV IN V4] ABNORMAL ECG UNCONFIRMED REPORT Electronically signed by : Ryan Hagen MD 09/11/2023 14:48:39
[2023-09-10 20:34] LABS: VBG Base Excess -0.3 mmol/L (-2.4-2.3); VBG HCO3 24.4 mmol/L (23-30); VBG PCO2 39.8 mmol/L (35-51); VBG PH 7.41 mmol/L (7.31-7.41); VBG PO2 32.1 mmol/L (28-40); VBG Total CO2 25.7 mmol/L (23-27)
[2023-09-10 20:36] LABS: Basophils % 0.1 % (0.1-2.0); Eosinophils # 0.1 K/mm3 (0.0-0.4); Eosinophils % 0.4 % (0.1-12.0); Hematocrit 32.2 % (37.0-47.0); Hemoglobin 10.2 g/dL (12.2-16.2); Lymphocytes # 1.8 K/mm3 (0.7-4.5); Lymphocytes % 7.1 % (10-50); Mean Corpuscular HGB Conc 31.7 g/dL (31.8-35.4); Mean Corpuscular Hemoglobin 27.8 pg (27.0-31.2); Mean Corpuscular Volume 87.6 fl (81-99); Mean Platelet Volume 10.7 fl (7.4-10.4); Monocytes # 0.7 K/mm3 (0.1-1.0); Monocytes % 2.9 % (1.7-9.3); Neutrophils # 22.3 K/mm3 (1.8-7.8); Neutrophils % 89.5 % (37.0-80.0); Platelet Count 353 K/mm3 (142-424); Red Blood Count 3.67 M/mm3 (4.20-5.40); Red Cell Distribution Width 17.2 % (11.5-17.5); White Blood Count 24.9 K/mm3 (4.8-10.8)
[2023-09-10 20:41] LABS: MANUAL DIFFERENTIAL MANUAL DIFFERENTIAL (MANUAL DIFF)
[2023-09-10 20:42] LABS: Alanine Aminotransferase 22 U/L (12-78); Albumin Level 3.4 g/dl (3.5-5.0); Albumin/Globulin Ratio 0.9 (1.1-1.8); Alkaline Phosphatase 90 U/L (38-126); Anion Gap 11.8 mEq/L (5-15); Aspartate Amino Transferase 39 U/L (14-36); Bilirubin,Total 1.6 mg/dl (0.2-1.3); Blood Urea Nitrogen 18 mg/dl (7-17); Calcium 8.5 mg/dl (8.4-10.2); Carbon Dioxide 26 mmol/L (22.0-30.0); Chloride 102 mmol/L (98-107); Creatinine Clearance Estimated 39 mL/min (50-200); Estimated Glomerular Filt Rate 61 ml/min (>60); GFR (African American) 74 ML/MIN (>60); Globulin 3.9 g/dL (1.3-3.2); Glucose 128 mg/dl (74-100); Potassium 4.8 mmoL/L (3.5-5.1); Sodium 135 mmol/L (136-145); Total Protein,Serum 7.3 g/dl (6.3-8.2)
--- NOTE | 2023-09-10 20:51 | HMH.EDCP ---
Discharge Plan Disposition Patient Disposition: Admitted Chief Complaint: Shortness of Breath/Dyspnea Prescriptions Prescriptions: No Action atorvastatin 40 MG tablet 40 mg PO DAILY aspirin [Aspir-81] 81 MG tablet,delayed release (DR/EC) 81 mg PO DAILY nitroglycerin [Nitrostat] 0.4 mg tablet, sublingual 0.4 mg sublingual Q5MINP PRN (Reason: Angina) Patient Comments: dissolve 1 tablet under the tongue every 3 to 5 minutes as needed for chest pain. If you require two in a row for chest pain call 911 or go to ER. ranolazine 500 mg tablet extended release 12 hr 500 mg PO BID Patient Comments: TAKE ONE TABLET BY MOUTH TWICE DAILY clopidogrel 75 mg Tablet 75 mg PO DAILY 30 Days Qty: 30 0RF spironolactone 25 mg Tablet 12.5 mg PO DAILY 30 Days Qty: 15 0RF Entresto 24-26 mg Tablet 1 tab PO BID 30 Days Qty: 60 0RF metoprolol succinate 25 mg Tablet Extended Release 24 Hr 12.5 mg PO DAILY 30 Days Qty: 15 0RF Jardiance 10 mg Tablet 10 mg PO DAILY 30 Days Qty: 30 0RF RisaQuad 8 billion cell Capsule 1 cap PO DAILY 30 Days Qty: 30 0RF potassium chloride [Klor-Con M20] 20 mEq Tablet,Er Particles/Crystals 40 meq PO BID 30 Days Qty: 120 0RF furosemide 20 mg Tablet 20 mg PO DAILY 30 Days Qty: 30 0RF apixaban 5 MG tablet 5 mg PO BID Referrals Follow up/Referrals: Laverne Busby APRN [Primary Care Provider] - See instructions Clinical Impressions Clinical Impression: Pneumonia, Sepsis Discharge ED Provider: Rios Underwood [facility] General Chief Complaint: Shortness of Breath/Dyspnea Stated Complaint: weak, cough, SOA Time Seen by Provider: 09/10/23 20:22 Mode of Arrival: Wheelchair Source of Information: Patient Limitations: No Limitations Description of Symptoms (Recalled from ER Triage Doc. by RN): Presents to ED with c/o SOA, weakness, and productive cough. Patient was recently admitted to hospital for Covid and LA on 09/01 and had 3 stents. Patient has a life vest on. Patient states she is suppose to be on 2L NC but is not wearing at this time. 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 Patient presented to hospital last week where she was diagnosed with heart failure reduced ejection fraction, NSTEMI and underwent cardiac catheterization with placement of 2 stents. Recent echo on 09-02 shows severe reduction in LV systolic function of 30%, akinesis of the inferior septal left ventricular senior and grade 2 diastolic dysfunction. Patient had COVID-19 and was escalated to 4 L nasal cannula and was subsequently discharged home. Since then patient has had persistent shortness of breath, worsening tachypnea, worsening cough. No significant chest pain. No other acute complaints at this time. Related Data Home Medications Medication Instructions Recorded Confirmed aspirin 81 mg tablet,delayed 81 mg PO DAILY HEART HEALTH 12/17/18 09/02/23 release (Aspir-) atorvastatin 40 mg tablet 40 mg PO DAILY High cholesterol 12/17/18 09/02/23 apixaban 5 mg tablet 5 mg PO BID Blood thinner 11/03/21 09/02/23 nitroglycerin 0.4 mg sublingual 0.4 mg sublingual Q5MINP PRN Angina 09/01/23 09/02/23 tablet (Nitrostat) ranolazine 500 mg tablet,extended 500 mg PO BID 09/01/23 09/02/23 release,12 hr Previous Rx's Medication Instructions Recorded L.acidophilus-L.paracasei-B.bifidum-S.thermophl 1 cap PO DAILY 30 days #30 caps 09/05/23 8 billion cell capsule (RisaQuad) clopidogrel 75 mg tablet 75 mg PO DAILY 30 days #30 tabs 09/05/23 empagliflozin 10 mg tablet 10 mg PO DAILY 30 days #30 tabs 09/05/23 (Jardiance) furosemide 20 mg tablet 20 mg PO DAILY 30 days #30 tabs 09/05/23 metoprolol succinate 25 mg 12.5 mg PO DAILY 30 days #15 tabs 09/05/23 tablet,extende
[2023-09-10 20:55] LABS: NT Pro Brain Natriuretic Pep. 4780 pg/mL (0-450)
[2023-09-10 20:57] LABS: Lactic Acid 2.1 mmol/L (0.7-2.1)
[2023-09-10 20:58] LABS: Troponin I 0.37 ng/ml (0.00-0.034)
--- NOTE | 2023-09-10 21:00 | PC.NURSE ---
Patient's BP 83/50 with MAP of 57. MD notified; MD not giving fluids due to her EF; no new orders at this time
--- NOTE | 2023-09-10 21:05 | PC.NURSE ---
in room at bedside with US.
--- NOTE | 2023-09-10 21:06 | PC.NURSE ---
blood cultures obtained and sent to lab.
[2023-09-10 21:21] LABS: Lymphocytes % 9 % (10-50); Monocytes % 1 % (2-9); Neutrophils % 90 % (42-76); Platelet Estimate Normal; RBC Morphology Normal; Total Cells Counted 100
--- NOTE | 2023-09-10 21:32 | PC.NURSE ---
in room at bed side with US .
--- NOTE | 2023-09-10 21:41 | PC.NURSE ---
day care supervisor notified of admission
--- NOTE | 2023-09-10 21:42 | PC.NURSE ---
Observation admission to 210 with dx of PNA and PE to service of the hospitalist.
[2023-09-10 21:51] LABS: Influenza A, PCR Not Detected (NotDetected); Influenza B, PCR Not Detected (NotDetected)
--- NOTE | 2023-09-10 22:18 | PC.NURSE ---
PT ARRIVED TO FLOOR AT THIS TIME
[2023-09-10 22:47] LABS: Procalcitonin 0.248 ng/mL (0.0-2.0)
--- NOTE | 2023-09-10 22:47 | EXP.HP ---
History of Present Illness *Admission Date: 09/10/23 *Reason for visit:: Shortness of breath *History of present illness: This is a chronically ill 78-year-old female with recent hospitalization for acute respiratory failure secondary to COVID 19 and status post placement of 2 cardiac stents. She was discharged on 12 8 after this hospitalization. On admission she was diagnosed with heart failure with reduced ejection fraction with a an EF of 30%. She underwent treatment for COVID-19 and also had 2 stents placed to her LAD at that time. At the time of discharge she was sent home with a LifeVest. Does have a history of COPD with a baseline oxygen requirement of 2 L nasal cannula. Today she presents with worsening cough and congestion, and weakness. She reports being on 2 L nasal cannula at home but was not wearing at the time of the presentation to the emergency department. She did present with increased work of breathing and tachypnea with wheezing. She endorses worsening cough over the last several days since discharge with brown productive sputum. She does not state that she is any more short of breath than normal just worsening malaise fatigue. She denies any chest pain and states that she felt decent at discharge but started feeling worse again over the last 24 hours. Emergency department workup significant for leukocytosis with a white cell count of 24 that is up from her discharge white blood cell count of 7. She was also noted to have elevated BNP of 4000 which is improved from prior hospitalization. Elevated troponin of 0.37 which is down from peak of 13 from prior discharge. Lactic acid 2.1. Chest x-ray with notable for left basilar opacities there significant for pneumonia as well as pleural effusion. Also noted to have bibasilar interstitial prominence reflecting pulmonary edema. Given patient's above-mentioned presentation, she was admitted for further evaluation. In the emergency department blood cultures were obtained and she was medicated with azithromycin and Rocephin and nebulizer treatments. [facility] Disclaimer: The information contained in this section may have been updated after the patient was seen, as this information can be updated by other users. Medical History (Updated 09/11/23 @ 11:19 by Bubba Oliver MD) Acute and chronic respiratory failure with hypoxia Colon cancer Dementia Myocardial infarction Pleural effusion, left Surgical History H/O heart artery stent History of colon resection Hx of CABG Hx of cholecystectomy Status post carotid surgery Social History Smoking Status: Former smoker alcohol intake: never current occupational status: retired Travel in the last 8 weeks: None Review of Systems Constitutional Constitutional: Reports fatigue and Reports malaise Eyes Eyes: Reports system reviewed and no additional complaints, except as documented ENT Ears, Nose, Mouth, and Throat: Reports system reviewed and no additional complaints, except as documented *Cardiovascular Cardiovascular: Reports dyspnea on exertion and Denies leg edema *Respiratory Respiratory: Reports change in phlegm color, Reports chest congestion, Reports cough and Reports dyspnea on exertion *Gastrointestinal Gastrointestinal: Reports system reviewed and no additional complaints, except as documented *Genitourinary Genitourinary: Reports system reviewed and no additional complaints, except as documented *Musculoskeletal Musculoskeletal: Reports system reviewed and no additional complaints, except as documented *Neurologic Neurologic: Reports system reviewed and no additional complaints, except as documented Endocrine Endocrine: Reports fatigue Meds Home Medications and Allergies Home Medications Medication Instructions Recorded Confirmed Type aspirin 81 mg tablet,delayed 81 mg PO DAILY heart
--- OUTSIDE RECORDS SUMMARY | 2023-09-10 23:02 | XMS_ITS | Clinical Summary ---
Author Name Unknown Address [address] [place] [address] Phone Organization [facility] Address [address] [place] [address] Phone Care Team Providers Care Landscaper Name Role Bhavani Wilson Unavailable Conditions or Problems Problem Name Problem Code Onset Date Status Entry Date Provider Comment Standard Description Annotate Smoking cessation counseling 907611154 (SNOMED CT) 12/03 Active 12/03 Bhavani Driscoll Procedure carried out on subject COPD with acute exacerbation 809124379 (SNOMED CT) 11/30 Active 11/30 Ramila L Acute exacerbation of chronic obstructive airways disease COVID-19 coronavirus Pneumonia (J12.82) 279207154 (SNOMED CT) 11/30 Active 11/30 Ramila L COVID-19 Acute on chronic respiratory failure with hypoxia 57089140 (SNOMED CT) 11/30 Active 11/30 Ramila L Acute respiratory failure Chronic systolic heart failure 774474192 (SNOMED CT) 11/30 Active 11/30 Ramila L Chroni
[2023-09-10 23:22] LABS: Coronavirus 19, PCR Detected (NotDetected)
[2023-09-10 23:26] LABS: Adenovirus,PCR Not Detected (NotDetected); Coronavirus 229E Not Detected (NotDetected); Coronavirus NL63 Not Detected (NotDetected); Coronavirus OC43 Not Detected (NotDetected); Coronovirus HKU1,PCR Not Detected (NotDetected); Human Metapneumovirus Not Detected (NotDetected); Influenza A, PCR Not Detected (NotDetected); Influenza AH1, 2009 Not Detected (NotDetected); Influenza AH1, PCR Not Detected (NotDetected); Influenza AH3,PCR Not Detected (NotDetected); Influenza B, PCR Not Detected (NotDetected); Parainfluenza 1, PCR Not Detected (NotDetected); Parainfluenza 2, PCR Not Detected (NotDetected); Parainfluenza 3, PCR Not Detected (NotDetected); Parainfluenza 4, PCR Not Detected (NotDetected); Respiratory Syncytial Virus Not Detected (NotDetected); Rhinovirus/Enterovirus Not Detected (NotDetected)
--- NOTE | 2023-09-10 23:34 | EXP.SEPSISRE ---
[facility] Tissue Perfusion Eval Sepsis Re-Evaluation Performed: Yes Date Performed: 09/10/23 Time Performed: 23:34
[2023-09-11] VITALS (30 sets, daily range): BP systolic 73–114; BP diastolic 35–61; PULSE 54–104; RESP 18–22; TEMP 36.8–37.9; O2SAT 88–100; BMI 26.9
[2023-09-11 00:06] LABS: Troponin I 0.38 ng/ml (0.00-0.034)
[2023-09-11 00:27] LABS: Reflex Lactic Add Lactic Reflex
[2023-09-11 00:36] LABS: Lactic Acid Follow Up (RFLX 1) 1.8 mmol/L (0.7-2.1)
[2023-09-11 00:51] LABS: Troponin I 0.38 ng/ml (0.00-0.034)
--- NOTE | 2023-09-11 01:30 | PC.NURSE ---
VERONICA Canales notified at this time for B/P running low, 78/44 with automatic cuff, manual cuff 80/46. Patient remains asymptomatic. Patient is A/O x4, no heart rhythm change. HR 73-80. Will continue to monitor b/p [id number].
[2023-09-11 01:48] LABS: Coronavirus 19, PCR Detected (NotDetected)
[2023-09-11 03:24] LABS: Troponin I 0.39 ng/ml (0.00-0.034)
--- NOTE | 2023-09-11 04:50 | PC.NURSE ---
Patient remains A/O x4. Patient is on venti mask 15L and 50% with O2 sats 89-91%. Patient is covid positive and in contact and airborne precautions. Patient voiced no c/o of pain during shift. Patient voids per BSC with x1 assist. Patient is wearing her life vest she received last week. Patient's b/p remains low, most current 102/53 with MAP 69. Patient's HR this shift ranges from 76-81. Patient is able to make needs be known. Call light within reach, and bed alarm remains on.
--- NOTE | 2023-09-11 06:27 | PC.NURSE ---
Patient is up to chair at this time and was able to be weaned from venti mask. Currently wearing 5L per NC with o2 sat 91-92%.
--- NOTE | 2023-09-11 07:22 | HMH.PHAINT1 ---
Pharmacy Intervention Comments: Med reconciliation completed using list from discharge last week
[2023-09-11 07:25] LABS: Chloride 104 mmol/L (98-107); Sodium 137 mmol/L (136-145)
[2023-09-11 07:27] LABS: Alanine Aminotransferase 17 U/L (12-78); Aspartate Amino Transferase 20 U/L (14-36); Blood Urea Nitrogen 20 mg/dl (7-17); Creatinine Clearance Estimated 41 mL/min (50-200); Estimated Glomerular Filt Rate 44 ml/min (>60); GFR (African American) 53 ML/MIN (>60)
[2023-09-11 07:28] LABS: Albumin Level 2.9 g/dl (3.5-5.0); Albumin/Globulin Ratio 0.9 (1.1-1.8); Alkaline Phosphatase 100 U/L (38-126); Bilirubin,Total 1.1 mg/dl (0.2-1.3); Calcium 8.3 mg/dl (8.4-10.2); Carbon Dioxide 29 mmol/L (22.0-30.0); Globulin 3.1 g/dL (1.3-3.2); Glucose 114 mg/dl (74-100)
[2023-09-11 07:41] LABS: Basophils % 0.1 % (0.1-2.0); Lymphocytes % 10.6 % (10-50); Mean Corpuscular HGB Conc 31.7 g/dL (31.8-35.4); Mean Corpuscular Hemoglobin 27.9 pg (27.0-31.2); Mean Corpuscular Volume 88.1 fl (81-99); Mean Platelet Volume 10.5 fl (7.4-10.4); Monocytes # 0.7 K/mm3 (0.1-1.0); Monocytes % 3.6 % (1.7-9.3); Neutrophils # 16.3 K/mm3 (1.8-7.8); Neutrophils % 85.6 % (37.0-80.0); Platelet Count 303 K/mm3 (142-424); Red Cell Distribution Width 17.5 % (11.5-17.5); White Blood Count 19.1 K/mm3 (4.8-10.8)
[2023-09-11 07:57] LABS: Hemoglobin 8.6 g/dL (12.2-16.2)
[2023-09-11 07:58] LABS: Hematocrit 27.3 % (37.0-47.0); MANUAL DIFFERENTIAL MANUAL DIFFERENTIAL (MANUAL DIFF)
--- NOTE | 2023-09-11 08:37 | CA_ITS ---
APPROVED REPORT EXAM: Limited 2D Echocardiogram Business Transformation Analyst: Ella Francis RVT Ht: 5 ft 1 in Wt: 142lbs BSA: 1.63 BP: 89/46 mmHg Indications: EF EVAL,CAD,EF OF 30% 09/02/23,LIFEVEST IN PLACE,CABG,PNEUMONIA M-Mode Dimensions RVDd 2.88 cm (0.9-2.6) LA Diam 3.55 cm (1.9-4.0) LVDd 7.05 cm (3.5-5.7) LVDs 6.05 cm (3.5-5.7) IVSd 0.71 cm (0.6-1.1) PWd 0.50 cm (0.6-1.1) EF (Teich) 29.40% FS 14.20% EDV (Teich) 259.60 mL ESV (Teich) 183.40 mL Other Information Study Quality: Fair Conclusion This is a limited TTE to evaluate for LVEF. Limited windows were obtained. The left ventricle appears normal in size. There is moderate to severe reduction in LV systolic function. There is akinesis of the basal to mid inferior and inferoseptal LV senior. LVEF is 30%. Compared to prior study from 09/02/2023, the LVEF is unchanged. Electronically signed by : Pallavi Hyde MD 09/14/2023 19:16:34
[2023-09-11 08:55] LABS: Lymphocytes % 10 % (10-50); Monocytes % 5 % (2-9); Neutrophils % 85 % (42-76); Total Cells Counted 100
[2023-09-11 08:56] LABS: Hypochromasia 2+
[2023-09-11 08:57] LABS: Nucleated Red Blood Cells 1; Platelet Estimate Normal
[2023-09-11 08:58] LABS: Anisocytosis 2+; Microcytosis 1+
--- NOTE | 2023-09-11 09:19 | PC.NURSE ---
0910 notified Char in [place] that pt o2 is currently 87-89 on 5lpm nc. o2 increased to 6lpm at this time
--- NOTE | 2023-09-11 10:03 | EXP.PULM.CON ---
History of Present Illness History of present illness: Mr. Sam is a 72 atrial fibrillation COPD, CAD A-fib female discharged from the hospital for management heart failure and NSTEMI presented to the ER with worsening respiratory distress and pulmonary was called for further evaluation and management. Patient denies any worsening cough or any productive phlegm but denies any subjective fevers. [facility] Disclaimer: The information contained in this section may have been updated after the patient was seen, as this information can be updated by other users. Medical History (Updated 09/11/23 @ 11:19 by Bubba Oliver MD) Acute and chronic respiratory failure with hypoxia Colon cancer Dementia Myocardial infarction Pleural effusion, left Surgical History H/O heart artery stent History of colon resection Hx of CABG Hx of cholecystectomy Status post carotid surgery Social History Smoking Status: Former smoker alcohol intake: never current occupational status: retired Travel in the last 8 weeks: None Review of Systems Constitutional Constitutional: Reports anorexia, Reports body ache(s) and Reports fatigue Eyes Eyes: Denies eye discharge, Denies dry eyes, Denies irritation and Denies itchy eyes ENT Ears, Nose, Mouth, and Throat: Denies epistaxis, Denies facial pain, Denies lip swelling and Denies throat swelling *Cardiovascular Cardiovascular: Reports dyspnea, Reports dyspnea on exertion, Reports leg edema and Reports orthopnea *Respiratory Respiratory: Reports chest congestion, Reports cough, Reports dyspnea, Reports dyspnea on exertion, Denies excessive phlegm production and Denies wheezing *Gastrointestinal Gastrointestinal: Denies abdominal pain, Denies belching and Denies cramping *Musculoskeletal Musculoskeletal: Reports back pain, Reports myalgias and Reports other (No small joint swelling or Pain) *Neurologic Neurologic: Reports system reviewed and no additional complaints, except as documented Psychiatric Psychiatric: Denies homicidal ideation and Denies suicidal ideation Endocrine Endocrine: Reports fatigue and Denies heat intolerance Hematologic/Lymphatic Hematologic/Lymphatic: Denies easy bleeding and Denies lymphadenopathy Allergic/Immunologic Allergic/Immunologic: Denies itchy eyes, Denies lip swelling, Denies throat swelling and Denies wheezing Pulmonology Exam Inpatient Vital signs and Labs for Last 24 Hours: Temp Pulse Resp BP Pulse Ox O2 Del Method O2 Flow Rate 98.6 F 61 22 89/46 L 91 L Nasal Cannula 6 09/11/23 07:50 09/11/23 09:30 09/11/23 09:30 09/11/23 09:30 09/11/23 09:30 09/11/23 09:30 09/11/23 09:30 FiO2 50 09/11/23 06:00 Laboratory Results - last 24 hr 09/10/23 20:21: WBC 24.9 H*, RBC 3.67 L, Hgb 10.2 L, Hct 32.2 L, MCV 87.6, MCH 27.8, MCHC 31.7 L, RDW 17.2, Plt Count 353, MPV 10.7 H, Neut % (Auto) 89.5 H, Lymph % (Auto) 7.1 L, Whitfield % (Auto) 2.9, Eos % (Auto) 0.4, Baso % (Auto) 0.1, Neut # (Auto) 22.3 H, Lymph # (Auto) 1.8, Whitfield # (Auto) 0.7, Eos # (Auto) 0.1, Baso # (Auto) 0.0, Total Counted 100, Neutrophils % (Manual) 90 H, Lymphocytes % (Manual) 9 L, Monocytes % (Manual) 1 L, Platelet Estimate Normal, RBC Morphology Normal, Sodium 135 L, Potassium 4.8, Chloride 102, Carbon Dioxide 26, Anion Gap 11.8, BUN 18 H, Creatinine 0.90, Estimated Creat Clear 39, Estimated GFR 61, Est GFR ( Amer) 74, Glucose 128 H, Lactate 2.1, Calcium 8.5, Total Bilirubin 1.6 H, AST 39 H, ALT 22, Alkaline Phosphatase 90, Troponin I 0.37 H, NT-Pro-B Natriuret Pep 4780 H, Total Protein 7.3 D, Albumin 3.4 L, Globulin 3.9 H, Albumin/Globulin Ratio 0.9 L 09/10/23 20:25: Procalcitonin 0.248 09/10/23 20:30: VBG pH 7.41, VBG pCO2 39.8, VBG pO2 32.1, VBG HCO3 24.4, VBG Total CO2 25.7, VBG O2 Saturation 58.0, VBG Base Excess -0.3 09/10/23 21:49: SARS-CoV-2 (PCR) Detected A, Influenza A Untype (
--- NOTE | 2023-09-11 10:19 | PC.NURSE ---
0807 Called and spoke with Char in [place], notified her that pt has order for flutter valve. device not available on floor at this time. states she will bring device to floor.
--- NOTE | 2023-09-11 11:13 | CT_ITS ---
FINAL REPORT TECHNIQUE: The patient was injected with IV contrast. Axial images were obtained through the chest in a PE protocol. 3-D reconstruction images were also performed. Individualized dose reduction techniques using automated exposure control or adjustment of the MA and/or KV according to patient's size were employed. CLINICAL HISTORY: Hypoxia FINDINGS: Mediastinal vasculature is adequately opacified. No pulmonary artery filling defects are identified to suggest PE. There is no aortic dissection. There is no axillary adenopathy. There is no hilar or mediastinal adenopathy. The heart size is normal. There is no pericardial effusion. Small to moderate left effusion is identified. There is dense left lower lobe consolidation. Note is made of biapical pleural and parenchymal scarring. The Limited images of the upper abdomen are unremarkable. IMPRESSION: No pulmonary embolus or dissection. Left lower lobe consolidation with small to moderate left effusion. Reviewed, Interpreted and Dictated by Berhane Borrego MD Transcribed by Franca Murillo Authenticated and [facility]
--- NOTE | 2023-09-11 12:32 | PC.NURSE ---
Pt off unit at 1208 with this RN for CT with PE protocol. returned at 1220
--- NOTE | 2023-09-11 14:57 | EXP.CARD.CON ---
History of Present Illness History of Present Illness Consult date: 09/11/23 Requesting physician: Alli Summers Consult reason: congestive heart failure and shortness of breath Chief complaint: Pneumonia, CHF Additional Medical History:: 1. CAD/Isch Cardiomyopathy/HFrEf A. History of CABG, 1988 B. Subacute STEMI, 09/03/2023, 2 ROCCO to LAD. Chronically occluded RCA, AMBRIZ and SVG grafts x 2. Left to right collaterals noted. Moderate circumflex disease. EF 25% C. LifeVest, 08/2023 D. Limited echocardiogram in the setting of hospitalization for heart failure showed EF around 30%, 09/10/2023 2. Paroxysmal atrial fibrillation A. On Eliquis B. [id number] score of 4 3. History of colon cancer, status post resection 4. Dementia 5. Hypoxic respiratory failure with COVID-19 infection, 09/02/2023 6. Hyperlipidemia 7. History of COPD with home oxygen use History of present illness: This is a chronically ill 78-year-old female with recent hospitalization for acute respiratory failure secondary to COVID 19 and status post placement of 2 cardiac stents. She was discharged on 09/05 after this hospitalization. On admission she was diagnosed with heart failure with reduced ejection fraction with a an EF of 30%. She underwent treatment for COVID-19 and also had 2 stents placed to her LAD at that time. At the time of discharge she was sent home with a LifeVest. Does have a history of COPD with a baseline oxygen requirement of 2 L nasal cannula. Today she presents with worsening cough and congestion, and weakness. She reports being on 2 L nasal cannula at home but was not wearing at the time of the presentation to the emergency department. She did present with increased work of breathing and tachypnea with wheezing. She endorses worsening cough over the last several days since discharge with brown productive sputum. She does not state that she is any more short of breath than normal just worsening malaise fatigue. She denies any chest pain and states that she felt decent at discharge but started feeling worse again over the last 24 hours. Emergency department workup significant for leukocytosis with a white cell count of 24 that is up from her discharge white blood cell count of 7. She was also noted to have elevated BNP of 4000 which is improved from prior hospitalization. Elevated troponin of 0.37 which is down from peak of 13 from prior discharge. Lactic acid 2.1. Chest x-ray with notable for left basilar opacities there significant for pneumonia as well as pleural effusion. Also noted to have bibasilar interstitial prominence reflecting pulmonary edema. Given patient's above-mentioned presentation, she was admitted for further evaluation. In the emergency department blood cultures were obtained and she was medicated with azithromycin and Rocephin and nebulizer treatments. The above per Dr. Summers and VERONICA Yen. Cardiology consulted for evaluation and recommendations regarding the patient's heart failure. As previously noted BNP has improved from 12,510 days ago to 4780 today. Troponin 0.38 and 0.39 Creatinine 1.2 after IV dose of Lasix overnight Hemoglobin has dropped from 10.2-8.6 overnight. White count has gone from 24,900 on admission to 19,100 overnight SARS-CoV-2 PCR is still detected Chest x-ray this admission compared to last week shows left basilar opacity possibly pneumonia, pulmonary edema or atelectasis with pleural fluid. Chest CTA negative for pulmonary embolus. Left lower lobe consolidation with small to moderate left effusion. [facility] Disclaimer: The information contained in this section may have been updated after the patient was seen, as this information can be updated by other users. Medical History (Updated 09/11/23 @ 11:19 by Bubba Oliver MD) Acute and chronic respiratory failure with hypoxia Colon cancer Dementia Myocardial infarction Pleural effusion, left Surgical History (Reviewed 1
--- NOTE | 2023-09-11 18:00 | EXP.ACUTE.PN ---
Subjective *Date: 09/11/23 *Time: 18:00 Medical Exam Vital signs and Labs for Last 24 Hours: Vital Signs Temp Pulse Pulse Resp BP BP BP 09/11/23 17:45 09/11/23 16:00 60 09/11/23 17:00 09/11/23 16:00 74 09/11/23 16:00 67 20 95/49 L 09/11/23 15:00 66 20 104/57 L 09/11/23 15:52 09/11/23 12:00 65 09/11/23 15:21 98.2 F 09/11/23 14:00 66 21 95/35 L 09/11/23 08:00 70 09/11/23 13:06 09/11/23 12:00 66 20 94/46 L 09/11/23 11:00 54 L 22 104/47 L 09/11/23 10:30 63 22 94/48 L 09/11/23 10:00 63 20 95/49 L 09/11/23 11:17 98.2 F 09/11/23 11:16 09/11/23 09:30 61 22 89/46 L 09/11/23 08:40 66 22 83/41 L 09/11/23 09:00 63 22 79/39 L 09/11/23 09:23 09/11/23 08:34 66 22 79/44 L 09/11/23 07:50 98.6 F 09/11/23 08:00 78 22 97/55 L 09/11/23 07:50 72 09/11/23 07:09 78 18 86/53 L 09/11/23 06:55 09/11/23 06:00 74 18 101/47 L 09/11/23 05:00 09/11/23 05:00 85 18 90/49 L 09/11/23 04:00 80 09/11/23 00:00 80 09/11/23 04:00 09/11/23 04:00 100.3 F H 79 18 102/53 L 09/11/23 02:00 77 20 73/40 L 09/11/23 03:00 09/11/23 03:00 87 20 99/38 L 09/11/23 01:25 80 18 80/46 L 09/11/23 01:20 79 18 78/44 L 09/11/23 01:00 12/14/23 01:09 76 09/11/23 01:09 78 09/11/23 00:00 98.8 F 81 20 103/55 L 09/10/23 22:58 09/10/23 22:57 09/10/23 22:35 98.8 F 85 20 94/52 L 09/10/23 22:13 98.6 F 91 H 21 89/45 L 09/10/23 21:44 95 H 22 106/45 L 09/10/23 21:31 91 H 22 95/64 L 09/10/23 21:30 89 21 85/48 L 09/10/23 21:00 89 22 83/50 L 09/10/23 20:30 92 H 98/51 L 09/10/23 20:37 95 H 09/10/23 20:37 95 H 09/10/23 20:37 09/10/23 20:09 98.6 F 68 28 H 90/55 L Pulse Ox O2 Del Method O2 Flow Rate FiO2 09/11/23 17:45 94 L Nasal Cannula 5 09/11/23 16:00 09/11/23 17:00 Nasal Cannula 6 09/11/23 16:00 94 L Nasal Cannula 6 09/11/23 16:00 94 L Nasal Cannula, BiPAP 6 09/11/23 15:00 91 L Nasal Cannula 6 09/11/23 15:52 Nasal Cannula 6 09/11/23 12:00 09/11/23 15:21 09/11/23 14:00 94 L Nasal Cannula 6 09/11/23 08:00 09/11/23 13:06 Nasal Cannula 6 09/11/23 12:00 92 L Nasal Cannula 6 09/11/23 11:00 94 L Nasal Cannula 6 09/11/23 10:30 93 L Nasal Cannula 6 09/11/23 10:00 93 L Nasal Cannula 6 09/11/23 11:17 09/11/23 11:16 Nasal Cannula 6 09/11/23 09:30 91 L Nasal Cannula 6 09/11/23 08:40 88 L Nasal Cannula 4 09/11/23 09:00 89 L Nasal Cannula 5 09/11/23 09:23 Nasal Cannula 5 09/11/23 08:34 89 L Nasal Cannula 5 09/11/23 07:50 09/11/23 08:00 91 L Nasal Cannula 5 09/11/23 07:50 90 L Nasal Cannula 5 09/11/23 07:09 90 L Nasal Cannula 5 09/11/23 06:55 Nasal Cannula 5 09/11/23 06:00 93 L Venturi Mask 15 50 09/11/23 05:00 Venturi Mask 15 09/11/23 05:00 90 L Venturi Mask 15 50 09/11/23 04:00 09/11/23 00:00 09/11/23 04:00 90 L Venturi Mask 15 50 09/11/23 04:00 90 L Venturi Mask 15 50 09/11/23 02:00 90 L Venturi Mask 15 50 09/11/23 03:00 Venturi Mask 15 09/11/23 03:00 90 L Venturi Mask 15 50 09/11/23 01:25 92 L Venturi Mask 15 50 09/11/23 01:20 91 L Venturi Mask 15 09/11/23 01:00 Venturi Mask 15 09/11/23 01:09 09/11/23 01:09 09/11/23 00:00 91 L Nasal Cannula 4 09/10/23 22:58 94 L Nasal Cannula 4 09/10/23 22:57 Nasal Cannula 4 09/10/23 22:35 92 L Nasal Cannula 4 09/10/23 22:13 Nasal Cannula 2 09/10/23 21:44 92 L Nasal Cannula 4 09/10/23 21:31 91 L Nasal Cannula 4 09/10/23 21:30 91 L Nasal Cannula 4 09/10/23 21:00 91 L Nasal Cannula 4 09/10/23 20:
[2023-09-12] VITALS (15 sets, daily range): BP systolic 85–115; BP diastolic 37–66; PULSE 54–82; RESP 18–24; TEMP 36.4–36.9; O2SAT 89–96; BMI 23.7
--- NOTE | 2023-09-12 02:56 | PC.NURSE ---
Paging Dr. Bolton at this time
--- NOTE | 2023-09-12 02:59 | PC.NURSE ---
Spoke to Dr. Bolton for concerns of multiple V-tach runs which patient sustains for 6-9 beats. Discussed with him and he states, Not to do anything at this time. To keep patient on tele and continue to monitor. Travis WATT standing next to this RN while speaking to physician on the phone.
--- NOTE | 2023-09-12 05:23 | PC.NURSE ---
Patient has remained stable since finishing Magnesium per NOV. Remains sinus rhythm with less frequent ectopy noted on tele monitor.
[2023-09-12 05:58] LABS: Basophils % 0.3 % (0.1-2.0); Eosinophils # 0.1 K/mm3 (0.0-0.4); Eosinophils % 0.8 % (0.1-12.0); Hematocrit 26.8 % (37.0-47.0); Hemoglobin 8.3 g/dL (12.2-16.2); Lymphocytes # 2.1 K/mm3 (0.7-4.5); Lymphocytes % 15.5 % (10-50); Mean Corpuscular Hemoglobin 27.5 pg (27.0-31.2); Mean Corpuscular Volume 88.7 fl (81-99); Monocytes # 0.6 K/mm3 (0.1-1.0); Monocytes % 4.5 % (1.7-9.3); Neutrophils # 10.6 K/mm3 (1.8-7.8); Neutrophils % 78.9 % (37.0-80.0); Platelet Count 319 K/mm3 (142-424); Red Blood Count 3.02 M/mm3 (4.20-5.40); Red Cell Distribution Width 17.4 % (11.5-17.5); White Blood Count 13.4 K/mm3 (4.8-10.8)
[2023-09-12 06:00] LABS: Chloride 104 mmol/L (98-107)
[2023-09-12 06:01] LABS: Potassium 3.6 mmoL/L (3.5-5.1)
[2023-09-12 06:05] LABS: Alanine Aminotransferase 14 U/L (12-78); Albumin Level 2.7 g/dl (3.5-5.0); Albumin/Globulin Ratio 0.9 (1.1-1.8); Alkaline Phosphatase 98 U/L (38-126); Aspartate Amino Transferase 21 U/L (14-36); Bilirubin,Total 0.9 mg/dl (0.2-1.3); Blood Urea Nitrogen 18 mg/dl (7-17); Calcium 8.2 mg/dl (8.4-10.2); Carbon Dioxide 29 mmol/L (22.0-30.0); Creatinine Clearance Estimated 39 mL/min (50-200); Estimated Glomerular Filt Rate 48 ml/min (>60); GFR (African American) 58 ML/MIN (>60); Globulin 3.1 g/dL (1.3-3.2); Glucose 100 mg/dl (74-100); Magnesium 2.7 mg/dl (1.6-2.3); Total Protein,Serum 5.8 g/dl (6.3-8.2)
[2023-09-12 06:15] LABS: Anion Gap 6.6 mEq/L (5-15); Sodium 136 mmol/L (136-145)
--- NOTE | 2023-09-12 06:44 | PC.NURSE ---
Patient called nurse to room requesting to be back on her Bipap. No specific reason voiced by patient. She is NAD, VSS on her 2L/NC. Bipap placed back on with previous settings 22/10, RR 24, FiO2 45% and tolerating well.
--- NOTE | 2023-09-12 06:49 | PC.NURSE ---
End of shift summary: Patient rested well throughout shift. Medicated per MAR with mostly stable VS. See previous notes/provider communications regarding numerous runs of V-tach on tele monitor. Consulted nighttime hospitalist and on-call electronic repair troubleshooter, Dr. Bolton. No interventions other than Magnesium replacement. Patient has decreased instances of ectopy on tele since. Tolerating 6L/NC. NAD, VSS at shift change.
--- NOTE | 2023-09-12 08:16 | EXP.PHA.CONS ---
Pharmacy Consult Date: 09/12/23 Time: 08:16 Referring provider: DR. DAVIS Reason for Consult:: VANCOMYCIN DOSING Allergies Allergy/AdvReac Type Severity Reaction Status Date / Time Corticosteroids AdvReac Unknown Verified 09/02/23 07:18 (Glucocorticoids) allergy reaction Home Medications Medication Instructions Recorded Confirmed Type aspirin 81 mg tablet,delayed 81 mg PO DAILY heart health 12/17/18 09/11/23 History release (Aspir-) atorvastatin 40 mg tablet 40 mg PO DAILY High cholesterol 12/17/18 09/11/23 History apixaban 5 mg tablet 5 mg PO BID Blood thinner/Afib 11/03/21 09/11/23 History nitroglycerin 0.4 mg sublingual 0.4 mg sublingual Q5MINP PRN Angina 09/01/23 09/11/23 History tablet (Nitrostat) ranolazine 500 mg tablet,extended 500 mg PO BID 09/01/23 09/11/23 History release,12 hr L.acidophilus-L.paracasei-B.bifidum-S.thermophl 1 cap PO DAILY 30 days #30 caps 09/05/23 09/11/23 Rx 8 billion cell capsule (RisaQuad) clopidogrel 75 mg tablet 75 mg PO DAILY 30 days #30 tabs 09/05/23 09/11/23 Rx empagliflozin 10 mg tablet 10 mg PO DAILY 30 days #30 tabs 09/05/23 09/11/23 Rx (Jardiance) furosemide 20 mg tablet 20 mg PO DAILY 30 days #30 tabs 09/05/23 09/11/23 Rx metoprolol succinate 25 mg 12.5 mg PO DAILY 30 days #15 tabs 09/05/23 09/11/23 Rx tablet,extended release 24 hr potassium chloride 20 mEq 40 meq PO BID 30 days #120 tabs 09/05/23 09/11/23 Rx tablet,extended release(part/cryst) (Klor-Con M) sacubitril 24 mg-valsartan 26 mg 1 tab PO BID 30 days #60 tabs 09/05/23 09/11/23 Rx tablet (Entresto) spironolactone 25 mg tablet 12.5 mg PO DAILY 30 days #15 tabs 09/05/23 09/11/23 Rx New Prescriptions to Start Prescriptions: Height: 1.55 m Weight: 57.017 kg Laboratory Results:: Laboratory Results - last 24 hr 09/11/23 06:40: Total Counted 100, Neutrophils % (Manual) 85 H, Lymphocytes % (Manual) 10, Monocytes % (Manual) 5, Nucleated RBCs 1, Platelet Estimate Normal, Hypochromasia 2+, Anisocytosis 2+, Microcytosis 1+ 09/12/23 05:36: WBC 13.4 H D, RBC 3.02 L, Hgb 8.3 L, Hct 26.8 L, MCV 88.7, MCH 27.5, MCHC 31.0 L, RDW 17.4, Plt Count 319, MPV 10.0, Neut % (Auto) 78.9, Lymph % (Auto) 15.5, [place] % (Auto) 4.5, Eos % (Auto) 0.8, Baso % (Auto) 0.3, Neut # (Auto) 10.6 H, Lymph # (Auto) 2.1, [place] # (Auto) 0.6, Eos # (Auto) 0.1, Baso # (Auto) 0.0, Sodium 136, Potassium 3.6, Chloride 104, Carbon Dioxide 29, Anion Gap 6.6, BUN 18 H, Creatinine 1.10 H, Estimated Creat Clear 39, Estimated GFR 48 L, Est GFR ( Amer) 58 L, Glucose 100, Calcium 8.2 L, Magnesium 2.7 H, Total Bilirubin 0.9, AST 21, ALT 14, Alkaline Phosphatase 98, Total Protein 5.8 L, Albumin 2.7 L, Globulin 3.1, Albumin/Globulin Ratio 0.9 L Medical History: Medical History (Updated 09/11/23 @ 11:19 by Bubba Oliver MD) Acute and chronic respiratory failure with hypoxia Colon cancer Dementia Myocardial infarction Pleural effusion, left Assessment and Plan Assessment and plan all Dx Assessment and Plan for all problems:: PATIENT RECEIVED VANCOMYCIN 1000 MG X1 DOSE ON 09/10/23 ~2350. RECOMMENDED CONTINUING WITH VANCOMYCIN 1250 MG Q36H STARTING AT 2300 ON 09/11/23.
--- NOTE | 2023-09-12 08:25 | PC.NURSE ---
clarified with SHUKRI Arellano that cardiology wanted this RN to give 12.5 metoprolol as ordered considering bp 85/49 (61), SHUKRI Arellano instructed this RN to give ordered metoprolol that pt's bp is always low
--- NOTE | 2023-09-12 09:42 | PC.NURSE ---
courtesy tech note: pt rounded on. no verbalized needs at this time. call light w/in reach.
--- NOTE | 2023-09-12 09:48 | EXP.CARD.PN ---
Subjective Subjective Date: 09/12/23 Time: 09:48 Principal diagnosis: Pneumonia, Non-sustained V. Tach, Cardiomyopathy Interval history: 78 yo WF in bed in NAD. Still with cough and need for oxygen. Telemetry shows recurrent non-sustained V. tach of less than 10 seconds, asymtomatic Metoprolol started this AM Exam Data for Last 24 hours Vital signs and Labs for Last 24 Hours: Temp Pulse Resp BP Pulse Ox O2 Del Method O2 Flow Rate 97.5 F L 82 18 85/49 L 93 L Nasal Cannula 5 09/12/23 08:00 09/12/23 08:00 09/12/23 08:00 09/12/23 08:00 09/12/23 09:00 09/12/23 09:00 09/12/23 09:00 FiO2 50 09/11/23 06:00 Laboratory Results - last 24 hr 09/12/23 05:36: WBC 13.4 H D, RBC 3.02 L, Hgb 8.3 L, Hct 26.8 L, MCV 88.7, MCH 27.5, MCHC 31.0 L, RDW 17.4, Plt Count 319, MPV 10.0, Neut % (Auto) 78.9, Lymph % (Auto) 15.5, [place] % (Auto) 4.5, Eos % (Auto) 0.8, Baso % (Auto) 0.3, Neut # (Auto) 10.6 H, Lymph # (Auto) 2.1, [place] # (Auto) 0.6, Eos # (Auto) 0.1, Baso # (Auto) 0.0, Sodium 136, Potassium 3.6, Chloride 104, Carbon Dioxide 29, Anion Gap 6.6, BUN 18 H, Creatinine 1.10 H, Estimated Creat Clear 39, Estimated GFR 48 L, Est GFR ( Amer) 58 L, Glucose 100, Calcium 8.2 L, Magnesium 2.7 H, Total Bilirubin 0.9, AST 21, ALT 14, Alkaline Phosphatase 98, Total Protein 5.8 L, Albumin 2.7 L, Globulin 3.1, Albumin/Globulin Ratio 0.9 L I & O for Last 24 hours: Intake & Output 09/09/23 09/10/23 09/11/23 09/12/23 11:59 11:59 11:59 11:59 Intake Total 840 / 840 1310 / 1310 Output Total 550 / 550 1100 / 1100 Balance 290 / 290 210 / 210 Weight 142 lb 4.8 oz 125 lb 11.2 oz Constitutional Constitutional: no acute distress *Routine Respiratory Exam Respiratory: Present rhonchi and diminished air movement *Routine Cardiovascular Exam Cardiovascular: Present RRR; Absent murmur, gallop or rubs *Routine Extremities Exam Extremities: Present edema *Routine Neurological Exam Neurological: Present alert and oriented X3 Progress Note: A&P Assessment and plan (1) Acute and chronic respiratory failure with hypoxia: Status: Acute (2) Pneumonia: Status: Acute (3) Pleural effusion, left: Status: Acute (4) Coronary artery disease: Status: Acute (5) Heart failure with reduced ejection fraction: Status: Acute (6) Elevated troponin: Status: Acute (7) Pulmonary edema: Status: Acute Assessment and Plan Assessment and Plan for All Diagnoses:: 1. Sepsis/acute on chronic resp failure/COPD/recent and persistent COVID infection/left sided pneumonia with pleural effusion -Antibiotics per Dr. Summers 2. Recent subacute STEMI and coronary stenting /HFrEF with EF 30% this admission -Continue LifeVest upon discharge -Continue aspirin 81 mg daily and Plavix 75 mg daily -Hold Entresto for now with low BP in setting of sepsis. Restart prior to discharge if BP allows. -Continue jardiance -Continue Lasix 20 mg daily orally unless blood pressure begins to drop 3. Paroxysmal atrial fibrillation -Continue apixaban 4. Hyperlipidemia -Continue statin therapy 5. History of dementia and generalized weakness -per records 6. Patient relates recent thyroid abnormality for which an ultrasound has been performed at an outlying hospital. -Recommend follow-up for this. 7. Recurrent non-sustained V. Tach -restart beta sultana (metoprolol succinate 12.5 mg twice daily) -Continue to monitor and if unable to increase metoprolol dose then will consider adding amiodarone -Patient is a candidate for AICD implantation if unable to medically control V. tach. Discussed with Dr. Bolton and Dr. Summers
--- NOTE | 2023-09-12 10:00 | EXP.PULM.PN ---
Subjective *Date: 09/12/23 *Time: 11:11 Interval history: No acute respiratory events overnight. Pulmonology Exam Inpatient Vital signs and Labs for Last 24 Hours: Temp Pulse Resp BP Pulse Ox O2 Del Method O2 Flow Rate 97.5 F L 82 18 85/49 L 93 L Nasal Cannula 5 09/12/23 08:00 09/12/23 08:00 09/12/23 08:00 09/12/23 08:00 09/12/23 09:00 09/12/23 09:00 09/12/23 09:00 FiO2 50 09/11/23 06:00 Laboratory Results - last 24 hr 09/12/23 05:36: WBC 13.4 H D, RBC 3.02 L, Hgb 8.3 L, Hct 26.8 L, MCV 88.7, MCH 27.5, MCHC 31.0 L, RDW 17.4, Plt Count 319, MPV 10.0, Neut % (Auto) 78.9, Lymph % (Auto) 15.5, [place] % (Auto) 4.5, Eos % (Auto) 0.8, Baso % (Auto) 0.3, Neut # (Auto) 10.6 H, Lymph # (Auto) 2.1, [place] # (Auto) 0.6, Eos # (Auto) 0.1, Baso # (Auto) 0.0, Sodium 136, Potassium 3.6, Chloride 104, Carbon Dioxide 29, Anion Gap 6.6, BUN 18 H, Creatinine 1.10 H, Estimated Creat Clear 39, Estimated GFR 48 L, Est GFR ( Amer) 58 L, Glucose 100, Calcium 8.2 L, Magnesium 2.7 H, Total Bilirubin 0.9, AST 21, ALT 14, Alkaline Phosphatase 98, Total Protein 5.8 L, Albumin 2.7 L, Globulin 3.1, Albumin/Globulin Ratio 0.9 L I & O for Labs for Last 24 Hours: Intake & Output 09/09/23 09/10/23 09/11/23 09/12/23 23:59 23:59 23:59 23:59 Intake Total 1670 / 1670 480 / 480 Output Total 1650 / 1650 Balance 480 / 480 Weight 142 lb 4.8 oz 142 lb 4.8 oz 125 lb 11.2 oz Constitutional: Present moderate distress Head: Present normocephalic and atraumatic ENT: Present normal exam, normal oropharynx and mucous membranes moist Neck: Present normal inspection and full ROM Respiratory: Present respiratory distress, rhonchi, diminished air movement and able to speak in complete sentences; Absent wheezes Cardiac: Present S1/S2, Tachycardia and radial pulses present GI: Present soft and distention; Absent tenderness or guarding Rectal (female): Present deferred (female): Present deferred Skin: Present intact; Absent cyanosis or jaundice Neuro: Present alert, awake and oriented x 3 Extremities: Present normal inspection; Absent clubbing or cyanosis Psychiatric: Present normal affect and cooperative Assessment and Plan *Assessment and plan (1) Acute and chronic respiratory failure with hypoxia: Status: Acute Category: Medical Code(s): J96.21 - Acute and chronic respiratory failure with hypoxia (2) Pleural effusion, left: Status: Acute Category: Medical Code(s): J90 - Pleural effusion, not elsewhere classified (3) Pneumonia: Status: Acute Qualifiers: Laterality: left Lung location: lower lobe of lung Pneumonia type: due to unspecified organism Qualified Code(s): J18.9 - Pneumonia, unspecified organism Category: Medical Code(s): J18.9 - Pneumonia, unspecified organism Plan Ms. Sam is a 78-year-old female prior smoker greater than 30 PPD last moved greater than 12 years ago history of COPD, CHF, CAD, CABG, A-fib recently admitted to the hospital with worsening respiratory distress and increasing oxygen requirements,, managed for NSTEMI and heart failure left heart cath status post stenting presented to the hospital worsening respiratory distress. Patient was also managed for COVID-19 pneumonia conservatively with no active treatment on that admission Initial COVID-19 positive was from 09/01/2023, remained positive on her current admission from 09/10/23. Venous blood gas on this admission did not show any evidence of hypoxic/hypercarbic respiratory failure Significant leukocytosis neutrophilic prominent upon admission improving. Procalcitonin on this admission low at 0.25 Chest x-ray on this amdission no dense consolidation noted. Compared to her x-ray from 09/01/2022 patient noted to have new left pleural effusion along with adjacent atelectasis. Increased vascular congestion noted. Patient on admission was initiated on vancomycin Zosyn and azithromycin. CTA did not
--- NOTE | 2023-09-12 14:20 | EXP.ACUTE.PN ---
Subjective *Date: 09/12/23 *Time: 15:47 Interval history: Patient has no chest pain today. Shortness of breath is stable. On 5 L on morning rounds. No nausea or vomiting. Working with therapy, up to chair yesterday. Had some runs of V. tach overnight but nothing sustained. Resume metoprolol this morning. Medical Exam Vital signs and Labs for Last 24 Hours: Vital Signs Temp Pulse Pulse Resp BP Pulse Ox O2 Del Method 09/12/23 13:00 Nasal Cannula 09/12/23 12:00 70 09/12/23 11:00 Nasal Cannula 09/12/23 11:50 97.7 F 09/12/23 08:00 80 09/12/23 10:00 68 20 94/44 L 96 Nasal Cannula 09/12/23 09:00 93 L Nasal Cannula 09/12/23 09:00 Nasal Cannula 09/12/23 08:00 82 18 85/49 L 93 L Nasal Cannula 09/12/23 08:00 97.5 F L 09/12/23 06:15 96 Nasal Cannula 09/12/23 06:13 Nasal Cannula 09/12/23 06:00 69 21 90/51 L 95 Nasal Cannula 09/12/23 05:00 Nasal Cannula 09/12/23 04:00 97.7 F 68 20 107/57 L 94 L Nasal Cannula 09/12/23 03:00 Nasal Cannula 09/12/23 00:00 70 09/12/23 02:00 80 21 115/59 L 89 L Nasal Cannula 09/12/23 01:58 80 20 110/57 L 90 L Nasal Cannula 09/12/23 01:00 Nasal Cannula 09/12/23 00:00 98.3 F 70 20 108/56 L 93 L Nasal Cannula 09/11/23 23:55 93 L Nasal Cannula 09/11/23 23:00 Nasal Cannula 09/11/23 22:00 71 20 114/61 93 L Nasal Cannula 09/11/23 20:45 Nasal Cannula 09/11/23 20:00 98.3 F 104 H 22 110/61 100 Nasal Cannula 09/11/23 20:00 70 09/11/23 18:30 Nasal Cannula 09/11/23 18:00 75 20 96/45 L 93 L Nasal Cannula 09/11/23 17:45 94 L Nasal Cannula 09/11/23 16:00 60 09/11/23 17:00 Nasal Cannula 09/11/23 16:00 74 94 L Nasal Cannula 09/11/23 16:00 67 20 95/49 L 94 L Nasal Cannula, BiPAP 09/11/23 15:00 66 20 104/57 L 91 L Nasal Cannula 09/11/23 15:52 Nasal Cannula 09/11/23 15:21 98.2 F O2 Flow Rate 09/12/23 13:00 3 09/12/23 12:00 09/12/23 11:00 3 09/12/23 11:50 09/12/23 08:00 09/12/23 10:00 5 09/12/23 09:00 5 09/12/23 09:00 5 09/12/23 08:00 5 09/12/23 08:00 09/12/23 06:15 6 09/12/23 06:13 6 09/12/23 06:00 6 09/12/23 05:00 6 09/12/23 04:00 6 09/12/23 03:00 6 09/12/23 00:00 09/12/23 02:00 6 09/12/23 01:58 6 09/12/23 01:00 6 09/12/23 00:00 6 09/11/23 23:55 6 09/11/23 23:00 6 09/11/23 22:00 6 09/11/23 20:45 6 09/11/23 20:00 6 09/11/23 20:00 09/11/23 18:30 6 09/11/23 18:00 6 09/11/23 17:45 5 09/11/23 16:00 09/11/23 17:00 6 09/11/23 16:00 6 09/11/23 16:00 6 09/11/23 15:00 6 09/11/23 15:52 6 09/11/23 15:21 Intake and Output 09/11/23 09/12/23 09/12/23 23:59 07:59 15:59 Intake Total 590 / 1670 840 / 840 Output Total 1100 / 1650 700 / 700 Balance -510 / 20 140 / 140 Intake: Intake, Oral Amount 240 / 720 840 / 840 Intake, Total IV Amount 350 / 950 Piperacillin/Tazo 3.375 gm In 0 100 / 200 .9 % Sodium Chloride 50 ml @ 100 mls/hr IV Q8H [facility] Rx#: [id number] Vancomycin/Water For Inj (Peg) 250 / 250 1.25 gm In 250 ml @ 125 mls/hr IV Q36H [facility] Rx#:[id number] Output: Output, Urine Amount 1100 / 1650 700 / 700 Other: Number of Unmeasured Voids 0 Weight 57.017 kg 57 kg Patient Weight 09/12/23 23:59 Weight 57 kg Laboratory Results - last 24 hr 09/12/23 05:36: WBC 13.4 H D, RBC 3.02 L, Hgb 8.3 L, Hct 26.8 L, MCV 88.7, MCH 27.5, MCHC 31.0 L, RDW 17.4, Plt Count 319, MPV 10.0, Neut % (Auto) 78.9, Lymph % (Auto) 15.5, [place] % (Auto) 4.5, Eos % (Auto) 0.8, Baso % (Auto) 0.3, Neut # (Auto) 10.6 H, Lymph # (Auto) 2.1, [place] # (Auto) 0.6, Eos # (Auto) 0.1, Baso # (Auto) 0.0, Sodium 136, Potassium 3.6, Chloride 104, Carbon Dioxide 29, Anion Gap 6.6, BUN 18 H, Creatinine 1.10 H, Estimated Creat Clear 39, Estimated GFR 48 L
[2023-09-13] VITALS (10 sets, daily range): BP systolic 73–112; BP diastolic 40–55; PULSE 66–80; RESP 16–27; TEMP 36.8–36.9; O2SAT 90–94; BMI 26.6
--- NOTE | 2023-09-13 05:05 | PC.NURSE ---
Patient has rested well this shift. Had to titrate oxygen up in the night due to destating around 87%. Patient currently on 4.5LNC stating at 92% Patient has has no c/o pain or discomfort. Lungs sounds have crackles present. Patient used bathroom twice this shift, urine is dark yellow and cloudy appearing. Patient has had several non sustained runs of VTach this shift. Both IVs remain patent with no s/sx of complications. Call dinero, water pitcher, bedside table and bed side table all with in reach.
[2023-09-13 07:28] LABS: Chloride 104 mmol/L (98-107); Sodium 138 mmol/L (136-145)
[2023-09-13 07:31] LABS: Alanine Aminotransferase 16 U/L (12-78); Albumin Level 2.7 g/dl (3.5-5.0); Albumin/Globulin Ratio 0.8 (1.1-1.8); Alkaline Phosphatase 83 U/L (38-126); Aspartate Amino Transferase 22 U/L (14-36); Bilirubin,Total 0.7 mg/dl (0.2-1.3); Blood Urea Nitrogen 15 mg/dl (7-17); Carbon Dioxide 29 mmol/L (22.0-30.0); Creatinine Clearance Estimated 48 mL/min (50-200); Estimated Glomerular Filt Rate 54 ml/min (>60); GFR (African American) 65 ML/MIN (>60); Globulin 3.2 g/dL (1.3-3.2); Total Protein,Serum 5.9 g/dl (6.3-8.2)
[2023-09-13 07:32] LABS: Glucose 107 mg/dl (74-100)
[2023-09-13 07:51] LABS: Magnesium 2.4 mg/dl (1.6-2.3)
--- NOTE | 2023-09-13 11:33 | EXP.ACUTE.PN ---
Subjective *Date: 09/13/23 *Time: 14:36 Interval history: Patient feeling little more weak today, still having productive cough. Flutter valve increases sputum production. Afebrile. Tolerating good p.o. intake. On 2 to 4 L over the past 24 hours. Denies chest pain, nausea, vomiting today. Medical Exam Vital signs and Labs for Last 24 Hours: Vital Signs Temp Pulse Pulse Pulse Resp BP Pulse Ox 09/13/23 11:00 09/13/23 11:12 98.3 F 67 19 96/49 L 91 L 09/13/23 08:00 70 09/13/23 08:00 93 L 09/13/23 08:23 09/13/23 08:00 71 27 H 89/45 L 93 L 09/13/23 07:37 98.2 F 72 18 95/55 L 92 L 09/13/23 06:28 93 L 09/13/23 04:00 77 09/13/23 04:00 66 16 112/51 L 90 L 09/13/23 00:00 70 09/13/23 00:00 69 20 73/40 L 90 L 09/12/23 20:00 92 L 09/12/23 20:00 98.5 F 70 18 91/37 L 92 L 09/12/23 20:00 72 09/12/23 18:33 09/12/23 18:13 94 L 09/12/23 16:00 70 09/12/23 17:00 09/12/23 16:00 71 19 87/66 L 90 L 09/12/23 15:37 98.4 F 09/12/23 14:58 09/12/23 12:00 54 L 24 91/48 L 91 L 09/12/23 13:00 09/12/23 12:00 70 09/12/23 11:50 97.7 F O2 Del Method O2 Flow Rate 09/13/23 11:00 Nasal Cannula 4 09/13/23 11:12 Nasal Cannula 4 09/13/23 08:00 09/13/23 08:00 Nasal Cannula 4 09/13/23 08:23 Nasal Cannula 4 09/13/23 08:00 Nasal Cannula 4 09/13/23 07:37 Nasal Cannula 4 09/13/23 06:28 Nasal Cannula 4.5 09/13/23 04:00 09/13/23 04:00 Room Air 4 09/13/23 00:00 09/13/23 00:00 Nasal Cannula 2 09/12/23 20:00 Nasal Cannula 2 09/12/23 20:00 Nasal Cannula 2 09/12/23 20:00 09/12/23 18:33 Nasal Cannula 2 09/12/23 18:13 Nasal Cannula 3 09/12/23 16:00 09/12/23 17:00 Nasal Cannula 3 09/12/23 16:00 Nasal Cannula 3 09/12/23 15:37 09/12/23 14:58 Nasal Cannula 3 09/12/23 12:00 Nasal Cannula 3 09/12/23 13:00 Nasal Cannula 3 09/12/23 12:00 09/12/23 11:50 Intake and Output 09/12/23 09/13/23 09/13/23 23:59 07:59 15:59 Intake Total 480 / 1510 720 / 960 240 / 960 Output Total 300 / 1000 200 / 400 200 / 400 Balance 180 / 510 520 / 560 40 / 560 Intake: Intake, Oral Amount 480 / 1440 590 / 830 240 / 830 Intake, Other Amount 30 / 30 Intake, Total IV Amount 100 / 100 Piperacillin/Tazo 3.375 gm In 0 100 / 100 .9 % Sodium Chloride 50 ml @ 100 mls/hr IV Q8H [facility] Rx#: [id number] Output: Output, Urine Amount 300 / 1000 200 / 400 200 / 400 Other: Number of Unmeasured Voids 1 Number of Bowel Movements 1 Weight 64.013 kg Patient Weight 09/13/23 23:59 Weight 64.013 kg Laboratory Results - last 24 hr 09/13/23 06:29: Sodium 138, Potassium 3.0 L, Chloride 104, Carbon Dioxide 29, Anion Gap 8.0, BUN 15, Creatinine 1.00, Estimated Creat Clear 48, Estimated GFR 54 L, Est GFR ( Amer) 65, Glucose 107 H, Calcium 8.0 L, Magnesium 2.4 H D, Total Bilirubin 0.7, AST 22, ALT 16, Alkaline Phosphatase 83, Total Protein 5.9 L, Albumin 2.7 L, Globulin 3.2, Albumin/Globulin Ratio 0.8 L I & O for Labs for Last 24 Hours: Intake & Output 09/10/23 09/11/23 09/12/2323 23:59 23:59 23:59 23:59 Intake Total 1670 / 1670 1320 / 1510 960 / 960 Output Total 1650 / 1650 1000 / 1000 400 / 400 Balance 320 / 510 560 / 560 Weight 64.546 kg 64.546 kg 57 kg 64.013 kg Constitutional: Present no acute distress and chronically ill appearing Head: Present atraumatic ENT: Present normal exam Neck: Present normal inspection Respiratory: Present prolonged expiratory phase, rhonchi, crackles (bases bilaterally), diminished air movement (Left lung field) and normal respiratory effort; Absent wheezes Cardiac: Present Reg Rate and Rhythm GI: Present soft and normal bowel sounds; Absent distention or tenderness Extremities: Present normal inspection and full ROM; Absen
--- NOTE | 2023-09-13 12:12 | PC.NURSE ---
Courtesy Round Rounded on patient. Patient awake and sitting up in bed. Patient no needs at this time. Call light with reach.
[2023-09-14] VITALS: BP 89/45; PULSE 71; PULSE 75; RESP 20; TEMP 37.1; O2SAT 92
--- NOTE | 2023-09-14 02:59 | PC.NURSE ---
Pt is A/O x4, Currently on 4L of O2 and sating in the mid 90s. Pt denies pain and is ambulating to the bathroom well with assistance from staff. Pt denies needs at this time.
[2023-09-14 04:00] VITALS: BP 96/48; PULSE 71; RESP 18; TEMP 36.9; O2SAT 91; BMI 26.9
[2023-09-14 06:30] VITALS: O2SAT 95
[2023-09-14 07:05] LABS: Influenza A, PCR Not Detected (NotDetected); Influenza B, PCR Not Detected (NotDetected)
[2023-09-14 07:25] LABS: Coronavirus 19, PCR Detected (NotDetected)
[2023-09-14 08:00] VITALS: BP 88/41; PULSE 70; PULSE 71; RESP 18; TEMP 36.3; O2SAT 94
[2023-09-14 08:21] LABS: Chloride 104 mmol/L (98-107); Potassium 3.5 mmoL/L (3.5-5.1); Sodium 139 mmol/L (136-145)
[2023-09-14 08:23] LABS: Alanine Aminotransferase 18 U/L (12-78); Aspartate Amino Transferase 31 U/L (14-36); Blood Urea Nitrogen 12 mg/dl (7-17); Creatinine Clearance Estimated 49 mL/min (50-200); Estimated Glomerular Filt Rate 54 ml/min (>60); GFR (African American) 65 ML/MIN (>60)
[2023-09-14 08:24] LABS: Albumin/Globulin Ratio 0.9 (1.1-1.8); Alkaline Phosphatase 99 U/L (38-126); Anion Gap 10.5 mEq/L (5-15); Bilirubin,Total 0.7 mg/dl (0.2-1.3); Calcium 8.3 mg/dl (8.4-10.2); Carbon Dioxide 28 mmol/L (22.0-30.0); Globulin 3.4 g/dL (1.3-3.2); Glucose 94 mg/dl (74-100); Total Protein,Serum 6.4 g/dl (6.3-8.2)
[2023-09-14 08:41] LABS: Basophils % 0.4 % (0.1-2.0); Eosinophils # 0.2 K/mm3 (0.0-0.4); Eosinophils % 1.7 % (0.1-12.0); Hemoglobin 8.4 g/dL (12.2-16.2); Lymphocytes # 2.2 K/mm3 (0.7-4.5); Lymphocytes % 24.4 % (10-50); Mean Corpuscular Hemoglobin 27.2 pg (27.0-31.2); Mean Corpuscular Volume 87.6 fl (81-99); Mean Platelet Volume 9.7 fl (7.4-10.4); Monocytes # 0.3 K/mm3 (0.1-1.0); Monocytes % 3.8 % (1.7-9.3); Neutrophils # 6.4 K/mm3 (1.8-7.8); Neutrophils % 69.8 % (37.0-80.0); Platelet Count 416 K/mm3 (142-424); Red Blood Count 3.08 M/mm3 (4.20-5.40); Red Cell Distribution Width 17.2 % (11.5-17.5); White Blood Count 9.1 K/mm3 (4.8-10.8)
[2023-09-14 08:49] LABS: Magnesium 2.2 mg/dl (1.6-2.3)
--- NOTE | 2023-09-14 11:42 | EXP.DC.SUM ---
General Admission date:: 09/10/23 Discharge date: 09/14/23 HPI HPI HPI: This is a chronically ill 78-year-old female with recent hospitalization for acute respiratory failure secondary to COVID 19 and status post placement of 2 cardiac stents. She was discharged on 09 05 after this hospitalization. On admission she was diagnosed with heart failure with reduced ejection fraction with a an EF of 30%. She underwent treatment for COVID-19 and also had 2 stents placed to her LAD at that time. At the time of discharge she was sent home with a LifeVest. Does have a history of COPD with a baseline oxygen requirement of 2 L nasal cannula. Today she presents with worsening cough and congestion, and weakness. She reports being on 2 L nasal cannula at home but was not wearing at the time of the presentation to the emergency department. She did present with increased work of breathing and tachypnea with wheezing. She endorses worsening cough over the last several days since discharge with brown productive sputum. She does not state that she is any more short of breath than normal just worsening malaise fatigue. She denies any chest pain and states that she felt decent at discharge but started feeling worse again over the last 24 hours. Emergency department workup significant for leukocytosis with a white cell count of 24 that is up from her discharge white blood cell count of 7. She was also noted to have elevated BNP of 4000 which is improved from prior hospitalization. Elevated troponin of 0.37 which is down from peak of 13 from prior discharge. Lactic acid 2.1. Chest x-ray with notable for left basilar opacities there significant for pneumonia as well as pleural effusion. Also noted to have bibasilar interstitial prominence reflecting pulmonary edema. Given patient's above-mentioned presentation, she was admitted for further evaluation. In the emergency department blood cultures were obtained and she was medicated with azithromycin and Rocephin and nebulizer treatments. Hospital Course Hospital Course Hospital Course: 78-year-old female with recent admission for myocardial injury and heart failure. Presented with shortness of breath. Admitted for sepsis. Pulmonology and cardiology consulted. Appreciate their assistance with care. Patient gradually showed improvement during admission with treatment for pneumonia and heart failure. Responding well to diuresis. Will transition antibiotics to Levaquin to complete 7-day course. Stable for discharge home with home health. Problems addressed as follows: Acute on chronic hypoxemic respiratory failure Pneumonia -Patient admitted for respiratory failure, had increased oxygen requirement. Pulmonology was consulted and assisted with care. Started on broad-spectrum antibiotics with improvement in her oxygenation. Oxygen weaned to 3 to 4 L by day of discharge. Initiated on Advair twice daily and DuoNebs. Will transition antibiotics from Zosyn and azithromycin to levofloxacin to complete 7-day course. Patient was noted to be COVID-positive on admission as well as repeat PCR obtained on day of discharge. She has been positive for several weeks now. First positive on 09/01. Blood cultures obtained that were negative during hospitalization. Continue pulmonary toilet with flutter valve. This is helping her expectorate sputum. Given her clinical improvement, stable for discharge home to complete antibiotics. Acute on chronic heart failure with reduced ejection fraction. CAD - Cardiology consulted, appreciate their recommendations. Patient's diuretics were continued for volume overload and her effusions. Blood pressure remains soft. Recommend holding Entresto. Continued her Lipitor, Plavix, and aspirin. Eliquis continued for heart failure. Resume home regimen of Lasix at discharge. Limited echo obtained during hospitalization showed persistent EF of 30%. LifeVest placed prior to discharge home. Dilan
[2023-09-14 12:00] VITALS: BP 86/45; PULSE 60; PULSE 71; RESP 18; TEMP 36.6; O2SAT 96
[2023-09-14 22:59] LABS: MRSA DNA PCR Negative
== END 2023-09-14 14:07 | disposition home health service (06) | DRG 871 ==
LOC: ER 21:41 → 2ND 21:52
PROVIDERS: Nurse Practitioner Acute Care; Admitting Provider Internal Medicine Adolescent Medicine; Emergency Provider Emergency Medicine; PCP Nurse Practitioner; Visit Provider Internal Medicine Adolescent Medicine
DX: A41.9 Sepsis, unspecified organism (principal); I50.23 Acute on chronic systolic (congestive) heart failure; J18.9 Pneumonia, unspecified organism; J96.21 Acute and chronic respiratory failure with hypoxia; U07.1 COVID-19; I47.20 Ventricular tachycardia, unspecified; I42.9 Cardiomyopathy, unspecified; R65.20 Severe sepsis without septic shock; J44.9 Chronic obstructive pulmonary disease, unspecified; Z99.81 Dependence on supplemental oxygen; F03.90 Unspecified dementia, unspecified severity, without behavioral disturbance, psychotic disturbance, mood disturbance, and anxiety; I25.2 Old myocardial infarction; Z95.5 Presence of coronary angioplasty implant and graft; Z95.1 Presence of aortocoronary bypass graft; Z87.891 Personal history of nicotine dependence; Z85.038 Personal history of other malignant neoplasm of large intestine
CPT/HCPCS: 36415; 71045; 71275; 80053; 82803; 83605; 83735; 83880; 84145; 84484; 85007; 85025; 87040; 87070; 87205; 87581; 87632; 87635; 87636; 87641; 87798; 93005; 93308; 94640; 97165; 99291; J0456; J0696; J2543; J3370; J3475; Q9967

== ENCOUNTER 2023-09-14 22:49 | Inpatient (IN) | payer MEDICARE, SELFPAY ==
[2023-09-14 22:49] VITALS: BP 107/60; PULSE 93; RESP 20; TEMP 36.7; O2SAT 92; BMI 23.6
--- NOTE | 2023-09-14 22:50 | ECG_ITS ---
APPROVED REPORT Exam: Resting ECG HR:87 bpm ECG Measurements Heart Rate 87 AXES CO 191 P 42 QRSd 128 QRS -9 QT 364 T 75 QTc 409 Conclusion SINUS RHYTHM WITH OCCASIONAL VENTRICULAR PREMATURE COMPLEXES INFERIOR MYOCARDIAL INFARCTION , PROBABLY OLD [40+ ms Q WAVE AND/OR ST/T ABNORMALITY IN II/aVF] ABNORMAL ECG UNCONFIRMED REPORT Electronically signed by : Ryan Hagen MD 09/15/2023 14:45:17
[2023-09-14 22:52] VITALS: BMI 25.0
--- NOTE | 2023-09-14 22:53 | XR_ITS ---
PROCEDURE INFORMATION: Exam: XR Chest Exam date and time: 09/14/2023 10:56 PM Age: 78 years old Clinical indication: Other: Multi pvc's; Additional info: Multi-pvcs TECHNIQUE: Imaging protocol: Radiologic exam of the chest. Views: 1 view. COMPARISON: CT ANGIO CHEST PE PROTOCOL 09/11/2023 12:08 PM FINDINGS: Tubes, catheters and devices: Limited study due to multiple electronic devices and leads overlying the patient. Lungs: Biapical scarring. Pleural spaces: Left basilar opacity, probably combination of pleural effusion and adjacent atelectasis/consolidation. Heart/Mediastinum: Unremarkable cardiomediastinal silhouette. Bones/joints: Median sternotomy. IMPRESSION: Left basilar opacity, probably combination of pleural effusion and adjacent atelectasis/consolidation. Recommend imaging follow-up until complete resolution.
[2023-09-14 23:01] VITALS: BP 101/48; PULSE 81; RESP 17; O2SAT 93
[2023-09-14 23:08] LABS: Basophils # 0.1 K/mm3 (0-0.2); Basophils % 0.4 % (0.1-2.0); Eosinophils # 0.1 K/mm3 (0.0-0.4); Eosinophils % 0.7 % (0.1-12.0); Hematocrit 29.1 % (37.0-47.0); Hemoglobin 9.2 g/dL (12.2-16.2); Lymphocytes # 2.5 K/mm3 (0.7-4.5); Lymphocytes % 23.3 % (10-50); Mean Corpuscular HGB Conc 31.4 g/dL (31.8-35.4); Mean Corpuscular Hemoglobin 27.4 pg (27.0-31.2); Mean Corpuscular Volume 87.1 fl (81-99); Mean Platelet Volume 9.7 fl (7.4-10.4); Monocytes # 0.5 K/mm3 (0.1-1.0); Monocytes % 4.6 % (1.7-9.3); Neutrophils # 7.5 K/mm3 (1.8-7.8); Neutrophils % 70.9 % (37.0-80.0); Platelet Count 480 K/mm3 (142-424); Red Blood Count 3.35 M/mm3 (4.20-5.40); Red Cell Distribution Width 17.2 % (11.5-17.5); White Blood Count 10.6 K/mm3 (4.8-10.8)
[2023-09-14] MEDS: AMIODARONE HCL 150 MG in DEXTROSE 5 % IN WATER 100 ML 618 MG IV (23:08)
--- NOTE | 2023-09-14 23:10 | ED_ITS ---
Discharge Plan Disposition Patient Disposition: Admitted Chief Complaint: Chest Pain Prescriptions Prescriptions: No Action atorvastatin 40 MG tablet 40 mg PO DAILY aspirin [Aspir-81] 81 MG tablet,delayed release (DR/EC) 81 mg PO DAILY nitroglycerin [Nitrostat] 0.4 mg tablet, sublingual 0.4 mg sublingual Q5MINP PRN (Reason: Angina) Patient Comments: dissolve 1 tablet under the tongue every 3 to 5 minutes as needed for chest pain. If you require two in a row for chest pain call 911 or go to ER. ranolazine 500 mg tablet extended release 12 hr 500 mg PO BID Patient Comments: TAKE ONE TABLET BY MOUTH TWICE DAILY clopidogrel 75 mg Tablet 75 mg PO DAILY 30 Days Qty: 30 0RF spironolactone 25 mg Tablet 12.5 mg PO DAILY 30 Days Qty: 15 0RF Entresto 24-26 mg Tablet 1 tab PO BID 30 Days Qty: 60 0RF Hold Instructions: until follow-up with cardiology due to low blood pressure metoprolol succinate 25 mg Tablet Extended Release 24 Hr 12.5 mg PO DAILY 30 Days Qty: 15 0RF Jardiance 10 mg Tablet 10 mg PO DAILY 30 Days Qty: 30 0RF RisaQuad 8 billion cell Capsule 1 cap PO DAILY 30 Days Qty: 30 0RF potassium chloride [Klor-Con M20] 20 mEq Tablet,Er Particles/Crystals 40 meq PO BID 30 Days Qty: 120 0RF furosemide 20 mg Tablet 20 mg PO DAILY 30 Days Qty: 30 0RF fluticasone propion-salmeterol [Advair Diskus] 500-50 mcg/dose Blister With Device 1 inh inhalation BIDRT 30 Days Qty: 1 0RF levofloxacin 750 mg Tablet 750 mg PO 1300 2 Days Qty: 2 0RF apixaban 5 MG tablet 5 mg PO BID Referrals Follow up/Referrals: Provider,Referral, MD [Primary Care Provider] - See instructions Clinical Impressions Clinical Impression: Ventricular tachycardia Discharge ED Provider: Tobi Hoffmann General Chief Complaint: Chest Pain Stated Complaint: heart rhythm irregularity Time Seen by Provider: 09/14/23 22:50 Mode of Arrival: EMS Source of Information: Patient and EMS Limitations: No Limitations Description of Symptoms (Recalled from ER Triage Doc. by RN): Patient reports that she was discharged home today. She was concerned because her LifeVest was buzzing and beeping at home. EMS reports she was having runs of Vtach in the truck. At triage she's having frequent 20+ beat runs of v-tach. Patient denies pain and shortness of breath at this time. History of Present Illness HPI narrative: 78-year-old female with history of hyperlipidemia, hypertension, CHF, CAD [place] with life vest in place presenting with V. tach. Patient had LifeVest placed recently here [facility]. Was discharged today, 09/14 from the hospital. Patient called EMS because vest was alarming. EMS showed up and patient was in sustained V. tach. Patient normotensive, asymptomatic. She states she feels a vibrating going from my chest to my back. No other complaints at this time. Related Data Home Medications Medication Instructions Recorded Confirmed aspirin 81 mg tablet,delayed 81 mg PO DAILY heart health 12/17/18 09/11/23 release (Aspir-) atorvastatin 40 mg tablet 40 mg PO DAILY High cholesterol 12/17/18 09/11/23 apixaban 5 mg tablet 5 mg PO BID Blood thinner/Afib 11/03/21 09/11/23 nitroglycerin 0.4 mg sublingual 0.4 mg sublingual Q5MINP PRN Angina 09/01/23 09/11/23 tablet (Nitrostat) ranolazine 500 mg tablet,extended 500 mg PO BID 09/01/23 09/11/23 release,12 hr Previous Rx's Medication Instructions Recorded L.acidophilus-L.paracasei-B.bifidum-S.thermophl 1 cap PO DAILY 30 days #30 caps 09/05/23 8 billion cell capsule (RisaQuad) clopidogrel 75 mg tablet 75 mg PO DAILY 30 days #30 tabs 09/05/23 empagliflozin 10 mg tablet 10 mg PO DAILY 30 days #30 tabs 09/05/23 (Jardiance) furosemide 20 mg tablet 20 mg PO DAILY 30 days #30 tabs 09/05/23 metoprolol succinate 25 mg 12.5 mg PO DAILY 30 days #15 tabs 09/05/23 tablet,extended release 24 hr potassium chloride 20 mEq 40 meq PO BID 30 days #120 tabs 09/05/23 tablet,extended release(part/cryst) (Klor-Con M) sacubitril 24 mg-valsartan 26 mg 1 tab PO BID 30 days #60 tabs 09/05/23 tablet (Entresto) spironolactone 25 mg tablet 12.5 mg PO DAILY 30 days #15 tabs 09/05/23 fluticasone 500 mcg-salmeterol 50 1 inh inhalation BIDRT 30 days #1 09/14/23 mcg/dose blistr powdr for ea inhalation (Advair Diskus) levofloxacin 750 mg tablet 750 mg PO 1300 2 days #2 tabs 09/14/23 Allergies Allergy/AdvReac Type Severity Reaction Status Date / Time Corticosteroids AdvReac Unknown Verified 09/02/23 07:18 (Glucocorticoids) [facility] reaction [facility] Dis[facility]: The information contained in this section may have been updated after the patient was seen, as this information can be updated by other users. Medical History (Updated 09/14/23 @ 23:17 by Tobi Hoffmann MD) Acute and chronic respiratory failure with hypoxia Colon cancer Dementia Myocardial infarction Pleural effusion, left Surgical History H/O heart artery stent History of colon resection Hx of CABG Hx of cholecystectomy Status post carotid surgery Social History Smoking Status: Never smoker alcohol intake: never current occupational status: retired Travel in the last 8 weeks: None ROS Obtained: Yes All systems reviewed & no additional complaints except as documented Physical Exam General General appearance: alert and in no apparent distress Neck Neck exam: Present trachea midline Chest Chest inspection: Present normal inspection and symmetric chest wall rise Respiratory Respiratory exam: Present normal lung sounds bilaterally; Absent respiratory distress, wheezes, stridor, accessory muscle use or prolonged expiratory phase Cardiovascular Cardiovascular exam: Present regular rate, normal rhythm and other (Intermittently in and out of sustained V. tach. LifeVest in place. Pads were placed as well) Abdominal Exam Abdominal exam: Present soft Extremities Exam Extremities exam: Absent edema Neurological Exam Neurological exam: Present alert, oriented X3 and CN II-XII intact Skin Skin exam: Present warm and dry; Absent cyanosis, diaphoresis or pallor HEART Score HEART Score HEART Score assessment performed?: Yes History (anamnesis): Highly suspicious ECG: Non-specific disturbance Age: >65 years Risk factors: 3 or more risk factors Troponin: 1-3x normal limit HEART Score: 8 Critical Care Critical Care Time Critical Care Time: Yes (CV) Attestation: On 09/14/23, the high probability of a clinically significant, sudden or life threatening deterioration of the following system(s) required my full and direct attention, intervention and personal management. The time I documented below is in addition to time spent performing reported procedures but includes the following listed in this critical care notation. Total Time Total Critical Care Time: 35 Medical Decision Making Medical Records Medical records reviewed: Yes I reviewed the patient's medical records. Jose Luis Inquiry Pt receiving controlled substance: No Jose Luis was queried for this patient: No Vital Signs Vital Signs: 09/14/23 22:49 Temperature 98.1 F Temperature Source Oral Pulse Rate [Left Radial] 93 H Respiratory Rate 20 Blood Pressure [Right Arm] 107/60 L Blood Pressure Mean [Right Arm] 75 Blood Pressure Source [Right Arm] Automatic Cuff Blood Pressure Position [Right Arm] Sitting 02 Sat by Pulse Oximetry 92 L Oxygen Delivery Method Nasal Cannula Oxygen Flow Rate (LPM) 3 Response Orders (Tests/Meds): ED MEDICATIONS Discontinued Medications Generic Name Dose Route Start Last Admin Trade Name Freq PRN Reason Stop Dose Admin Amiodarone HCl 150 mg/ 103 mls @ 618 mls/hr 09/14/23 22:59 09/14/23 23:08 Dextrose IV 09/14/23 23:08 618 mls/hr ONCE ONE Administration ORDERS Category Date Time Status Chest XR -- portable [XR chest portable] Stat Exams 09/14/23 22:53 Taken Brain Natriuretic Peptide Stat Lab 09/14/23 22:56 Received Complete Blood Count Auto Diff Stat Lab 09/14/23 22:56 Received Comprehensive Metabolic Panel Stat Lab 09/14/23 22:56 Received T4 (Thyroxine) Stat Lab 09/14/23 22:56 Received Thyroid Stimulating Hormone Stat Lab 09/14/23 22:56 Received Troponin I Q3H Lab 09/15/23 02:00 Ordered Troponin I Q3H Lab 09/15/23 05:00 Ordered Troponin I Stat Lab 09/14/23 22:56 Received MDM Narrative Medical Decision Narrative: 78-year-old female with history of hyperlipidemia, hypertension, CHF, CAD [place] with life vest in place presenting with V. tach. Patient had LifeVest placed recently here [facility]. Was discharged today, 09/14 from the hospital. Patient called EMS because vest was alarming. EMS showed up and patient was in sustained V. tach. Patient normotensive, asymptomatic. She states she feels a vibrating going from my chest to my back. No other complaints at this time. It should be noted that patient has significant coronary artery, congestive heart disease which is poorly controlled and complicating care with a LifeVest in place. History was obtained via conversation with patient and EMS. On arrival, patient hemodynamically stable, alert, oriented x4, appropriate, GCS 15, moving all extremities spontaneously, pupils equal and reactive to light. Full physical exam performed and significant for well-appearing patient no acute distress. Intermittently in V. tach. LifeVest in place. Lungs clear to auscultation bilaterally. Differential includes ACS, HI, pneumothorax, PE, dissection, pneumothorax, aortic aneurysm, pneumonia, bronchitis, among others. Patient was given amnio bolus and drip for symptomatic management and correction of underlying abnormalities. Because hospitalist service just discharge patient today, prior to workup returning, hospitalist service was contacted again. Graciously excepted admission. Given patient presentation, workup, history, this most likely represents ischemic versus nonischemic cardiomyopathy compl icated by ventricular tachycardia. Because patient high risk for clinical decompensation, deemed appropriate for inpatient admission. Results were relayed to patient who voiced understanding and patient was agreeable to inpatient admission and management. Patient was admitted to the hospital for further definitive management, and remained hemodynamically stable during entire stay in the emergency department.
[2023-09-14 23:17] LABS: Chloride 102 mmol/L (98-107); Sodium 137 mmol/L (136-145)
[2023-09-14 23:18] LABS: Potassium 3.9 mmoL/L (3.5-5.1)
[2023-09-14 23:20] LABS: Alanine Aminotransferase 18 U/L (12-78); Albumin Level 2.9 g/dl (3.5-5.0); Albumin/Globulin Ratio 0.9 (1.1-1.8); Alkaline Phosphatase 96 U/L (38-126); Anion Gap 9.9 mEq/L (5-15); Aspartate Amino Transferase 26 U/L (14-36); Bilirubin,Total 0.6 mg/dl (0.2-1.3); Blood Urea Nitrogen 12 mg/dl (7-17); Carbon Dioxide 29 mmol/L (22.0-30.0); Creatinine Clearance Estimated 51 mL/min (50-200); Estimated Glomerular Filt Rate 54 ml/min (>60); GFR (African American) 65 ML/MIN (>60); Globulin 3.2 g/dL (1.3-3.2); Total Protein,Serum 6.1 g/dl (6.3-8.2)
[2023-09-14 23:21] LABS: Calcium 8.4 mg/dl (8.4-10.2); Glucose 112 mg/dl (74-100)
[2023-09-14] MEDS: AMIODARONE HCL 900 MG in DEXTROSE 5 % IN WATER 500 ML 33.2999999999999972 MG IV (23:21)
--- NOTE | 2023-09-14 23:24 | PC.NURSE ---
patient sitting upright in bed, no visible distress. oxygen supplementation continues via nc. no needs voiced. RN at bedside attempting 2nd IV.
[2023-09-14 23:31] LABS: NT Pro Brain Natriuretic Pep. 3870 pg/mL (0-450)
--- NOTE | 2023-09-14 23:32 | PC.NURSE ---
Nurse to nurse report given to Lily CALDERA. Patient having less frequent runs of v-tach after administration of amiodarone bolus.
[2023-09-14 23:33] VITALS: BP 106/43; PULSE 82; RESP 23; O2SAT 93
[2023-09-14 23:33] LABS: Troponin I 0.13 ng/ml (0.00-0.034)
[2023-09-14 23:38] LABS: T4 (Thyroxine) 10.2 ug/dl (5.53-11.0)
--- NOTE | 2023-09-14 23:44 | EXP.HP ---
History of Present Illness *Admission Date: 09/14/23 *Reason for visit:: V-tach *History of present illness: This is a 78-year-old female with history of hyperlipidemia, hypertension, CHF, CAD [place] with life vest in place presenting with V. tach. Patient was discharged home today with had LifeVest placed. Patient called EMS because vest was alarming. EMS showed up and patient was in sustained V. tach. Patient normotensive, asymptomatic. She states she feels a vibrating going from my chest to my back. No other complaints at this time. Readmitted. [facility] Disclaimer: The information contained in this section may have been updated after the patient was seen, as this information can be updated by other users. Medical History (Updated 09/15/23 @ 14:36 by Lyn Nunez APRN) Acute and chronic respiratory failure with hypoxia Chronic respiratory failure with hypoxia Colon cancer Coronary artery disease Dementia Heart failure with reduced ejection fraction HLD (hyperlipidemia) Ischemic cardiomyopathy Myocardial infarction Paroxysmal atrial fibrillation Pleural effusion, left Pulmonary edema Ventricular tachycardia Surgical History H/O heart artery stent History of colon resection Hx of CABG Hx of cholecystectomy Status post carotid surgery Social History Smoking Status: Never smoker alcohol intake: never current occupational status: retired Travel in the last 8 weeks: None Review of Systems Review of Systems Review of systems:: pertinent systems reviewed and negative unless documented below Meds Home Medications and Allergies Home Medications Medication Instructions Recorded Confirmed Type aspirin 81 mg tablet,delayed 81 mg PO DAILY heart health 12/17/18 09/15/23 History release (Aspir-) atorvastatin 40 mg tablet 40 mg PO DAILY High cholesterol 12/17/18 09/15/23 History apixaban 5 mg tablet 5 mg PO BID Blood thinner/Afib 11/03/21 09/15/23 History nitroglycerin 0.4 mg sublingual 0.4 mg sublingual Q5MINP PRN Angina 09/01/23 09/15/23 History tablet (Nitrostat) ranolazine 500 mg tablet,extended 500 mg PO BID 09/01/23 09/15/23 History release,12 hr L.acidophilus-L.paracasei-B.bifidum-S.thermophl 1 cap PO DAILY 30 days #30 caps 09/05/23 09/15/23 Rx 8 billion cell capsule (RisaQuad) clopidogrel 75 mg tablet 75 mg PO DAILY 30 days #30 tabs 09/05/23 09/15/23 Rx empagliflozin 10 mg tablet 10 mg PO DAILY 30 days #30 tabs 09/05/23 09/15/23 Rx (Jardiance) furosemide 20 mg tablet 20 mg PO DAILY 30 days #30 tabs 09/05/23 09/15/23 Rx metoprolol succinate 25 mg 12.5 mg PO DAILY 30 days #15 tabs 09/05/23 09/15/23 Rx tablet,extended release 24 hr potassium chloride 20 mEq 40 meq PO BID 30 days #120 tabs 09/05/23 09/15/23 Rx tablet,extended release(part/cryst) (Klor-Con M) sacubitril 24 mg-valsartan 26 mg 1 tab PO BID 30 days #60 tabs 09/05/23 09/15/23 Rx tablet (Entresto) spironolactone 25 mg tablet 12.5 mg PO DAILY 30 days #15 tabs 09/05/23 09/15/23 Rx fluticasone 500 mcg-salmeterol 50 1 inh inhalation BIDRT 30 days #1 09/14/23 09/15/23 Rx mcg/dose blistr powdr for ea inhalation (Advair Diskus) levofloxacin 750 mg tablet 750 mg PO 1300 2 days #2 tabs 09/14/23 09/15/23 Rx New Prescriptions to Start Prescriptions: Allergies Allergy/AdvReac Type Severity Reaction Status Date / Time Corticosteroids AdvReac Unknown Verified 09/02/23 07:18 (Glucocorticoids) allergy reaction Exam Data for Last 24 hours Vital signs and Labs for Last 24 Hours: Temp Pulse Resp BP Pulse Ox O2 Del Method O2 Flow Rate 98.1 F 82 23 106/43 L 93 L Nasal Cannula 3 09/14/23 22:49 09/14/23 23:33 09/14/23 23:33 09/14/23 23:33 09/14/23 23:33 09/14/23 22:49 09/14/23 22:49 Laboratory Results - last 24 hr 09/14/23 22:56: WBC 10.6, RBC 3.35 L, Hgb 9.2 L, Hct 29.1 L, MCV 87.1, MCH 27.4, MCHC 31.4 L, RDW 17.2, Plt Count 480 H, MPV 9.7, Neut % (Auto) 70.9, Lymph % (Auto) 23.3, [place] % (Auto) 4.6, Eos % (Auto) 0.7, Baso % (Auto) 0.4, Neut # (Auto) 7.5, Lymph # (Auto) 2.5, [place] # (Auto) 0.5, Eos # (Auto) 0.1, Baso # (Auto) 0.1, Sodium 137, Potassium 3.9, Chloride 102, Carbon Dioxide 29, Anion Gap 9.9, BUN 12, Creatinine 1.00, Estimated Creat Clear 51, Estimated GFR 54 L, Est GFR ( Amer) 65, Glucose 112 H, Calcium 8.4, Total Bilirubin 0.6, AST 26, ALT 18, Alkaline Phosphatase 96, Troponin I 0.13 H, NT-Pro-B Natriuret Pep 3870 H, Total Protein 6.1 L, Albumin 2.9 L, Globulin 3.2, Albumin/Globulin Ratio 0.9 L, Thyroxine (T4) 10.2 I & O for Last 24 hours: Intake & Output 09/11/23 09/12/23 09/13/23 09/14/23 23:59 23:59 23:59 23:59 Weight 68.039 kg Constitutional Constitutional: mild distress and cooperative *Routine HEENT Exam Head: Present normocephalic and atraumatic Eye: Present EOMI, PERRL and normal accommodation ENT: Present mucous membranes moist *Routine Neck Exam Neck: Present supple, full ROM and trachea midline *Routine Respiratory Exam Respiratory: Present normal respiratory effort, able to speak in complete sentences and symmetric chest movement *Routine Cardiovascular Exam Cardiovascular: Present Normal S1, Normal S2, tachycardia and irregularly irregular *Routine Abdominal Exam Abdominal: Present soft and normoactive bowel sounds; Absent organomegaly *Routine Rectal Exam Rectal:: deferred *Routine Genitalia Exam Genitalia:: deferred *Routine Extremities Exam Extremities: Present full ROM and pulses intact; Absent cyanosis, clubbing or edema *Routine Skin Exam Skin: Present intact, dry, warm and ecchymosis *Routine Neurological Exam Neurological: Present alert, oriented X3, normal reflexes, moving all extremities and normal speech Routine Psychiatric Exam Psychiatric: Present normal thought process, cooperative, good judgment and anxious H&P: Result Imaging and Cardiology EKG: Status: image reviewed by me and Preliminary report Assessment and Plan *Assessment and plan (1) Ventricular tachycardia: Status: Acute Category: Medical Code(s): I47.20 - Ventricular tachycardia, unspecified (2) Heart failure with reduced ejection fraction: Status: Acute Category: Medical Code(s): I50.20 - Unspecified systolic (congestive) heart failure (3) Paroxysmal atrial fibrillation: Status: Acute Category: Medical Code(s): I48.0 - Paroxysmal atrial fibrillation (4) HLD (hyperlipidemia): Status: Acute Qualifiers: Hyperlipidemia type: unspecified Qualified Code(s): E78.5 - Hyperlipidemia, unspecified Category: Medical Code(s): E78.5 - Hyperlipidemia, unspecified (5) Sepsis: Status: Acute Qualifiers: Acute respiratory failure type: with hypoxia Sepsis acute organ dysfunction status: with acute organ dysfunction Sepsis type: sepsis due to unspecified organism Severe sepsis acute organ dysfunction type: acute respiratory failure Severe sepsis shock status: without septic shock Qualified Code(s): A41.9 - Sepsis, unspecified organism; R65.20 - Severe sepsis without septic shock; J96.01 - Acute respiratory failure with hypoxia Category: Medical Code(s): A41.9 - Sepsis, unspecified organism Plan 78-year-old female with history of hyperlipidemia, hypertension, CHF, CAD [place] with life vest in place presenting with V. tach. Patient was discharged home today with had LifeVest placed. Patient called EMS because vest was alarming. On arrival monomorphic VTach confirmed on monitor. IV bolus of amiodarone gievn with subsequently continuous infusion. Findings discussed with ER. Agreed for readmission. Plan: -Sustained V. Tach started on amiodarone drip Continue to monitor consider to increase metoprolol dose Per last cardiology documentation: Patient is a candidate for AICD implantation if unable to medically control V. tach. cardiology consultation -Recent subacute STEMI and coronary stenting /HFrEF with EF 30% this admission Continue LifeVest Continue aspirin 81 mg daily and Plavix 75 mg daily on Entresto and jardiance Continue Lasix 20 mg daily orally unless blood pressure begins to drop Hx Paroxysmal atrial fibrillation. -Continue apixaban Hyperlipidemia -Continue statin therapy - Hx of current hospitalization for sepsis and hypoxic respiratory failure was on levaquin at home. switched to cefepime to avoid QT interation On eliquis, Protonix Full code Rounded on patient after nurse practitioner. Personally examined and interviewed patient. Agree with exam findings and care plan as documented.
[2023-09-14 23:51] LABS: Thyroid Stimulating Hormone 0.13 uIU/mL (0.465-4.68)
[2023-09-14 23:57] VITALS: BP 106/43; PULSE 82; RESP 23; TEMP 36.8; O2SAT 92
--- NOTE | 2023-09-14 23:59 | PC.NURSE ---
pt arrived to floor at this time
[2023-09-15] VITALS (16 sets, daily range): BP systolic 74–119; BP diastolic 39–52; PULSE 56–91; RESP 16–20; TEMP 36.7–37.6; O2SAT 90–94; BMI 24.3
[2023-09-15 03:04] LABS: Troponin I 0.12 ng/ml (0.00-0.034)
[2023-09-15] MEDS: CEFEPIME HCL 1 GM in 0.9 % SODIUM CHLORIDE 50 ML IV (04:30)
--- NOTE | 2023-09-15 05:27 | PC.NURSE ---
Addendum entered by Lily Tineo RN 09/15/23 05:28: 0.5mg/min (16.7 ml/hr) per protocol Original Note: Amiodarone GTT titrated to 05.===
--- NOTE | 2023-09-15 05:28 | PC.NURSE ---
Patient has rested well since admission to step down unit. Amio GTT is still infusing. Patient has has a few runs of VTACH but nothing sustained. Patient is hypotensive with BP 86/42 MAP of 56 Jimenez, DIPLOMATIC INTERPRETER notified orders received to keep monitoring and if it drops consistently then call. Patient has been asymptomatic with vtach runs. Easily arousable. LifeVest remains in place. Bedside table, water pitcher, call dinero and personal belongings all with in reach
[2023-09-15 07:14] LABS: Chloride 102 mmol/L (98-107)
[2023-09-15 07:15] LABS: Sodium 137 mmol/L (136-145)
[2023-09-15 07:17] LABS: Alanine Aminotransferase 14 U/L (12-78); Albumin Level 2.5 g/dl (3.5-5.0); Albumin/Globulin Ratio 0.9 (1.1-1.8); Alkaline Phosphatase 84 U/L (38-126); Aspartate Amino Transferase 22 U/L (14-36); Bilirubin,Total 0.6 mg/dl (0.2-1.3); Blood Urea Nitrogen 11 mg/dl (7-17); Calcium 8.2 mg/dl (8.4-10.2); Carbon Dioxide 28 mmol/L (22.0-30.0); Creatinine Clearance Estimated 50 mL/min (50-200); Estimated Glomerular Filt Rate 61 ml/min (>60); GFR (African American) 74 ML/MIN (>60); Globulin 2.9 g/dL (1.3-3.2); Glucose 99 mg/dl (74-100); Total Protein,Serum 5.4 g/dl (6.3-8.2)
[2023-09-15 07:24] LABS: Troponin I 0.11 ng/ml (0.00-0.034)
[2023-09-15 07:41] LABS: Basophils % 0.2 % (0.1-2.0); Eosinophils # 0.1 K/mm3 (0.0-0.4); Eosinophils % 1.2 % (0.1-12.0); Lymphocytes % 25.2 % (10-50); Mean Corpuscular HGB Conc 32.1 g/dL (31.8-35.4); Mean Corpuscular Hemoglobin 28.4 pg (27.0-31.2); Mean Corpuscular Volume 88.5 fl (81-99); Mean Platelet Volume 9.2 fl (7.4-10.4); Monocytes # 0.4 K/mm3 (0.1-1.0); Monocytes % 5.4 % (1.7-9.3); Neutrophils # 5.5 K/mm3 (1.8-7.8); Neutrophils % 67.9 % (37.0-80.0); Platelet Count 382 K/mm3 (142-424); Red Blood Count 2.84 M/mm3 (4.20-5.40); Red Cell Distribution Width 16.5 % (11.5-17.5); White Blood Count 8.1 K/mm3 (4.8-10.8)
[2023-09-15 08:21] LABS: Hematocrit 25.1 % (37.0-47.0); Hemoglobin 8.1 g/dL (12.2-16.2)
[2023-09-15] MEDS: SACUBITRIL/VALSARTAN 24-26MG TABLET 1 EACH PO ×2 (09:49→21:04)
[2023-09-15] MEDS: SPIRONOLACTONE 25MG TABLET 12.5 MG PO (09:49)
[2023-09-15] MEDS: APIXABAN 5MG TABLET 5 MG PO (09:50)
[2023-09-15] MEDS: CLOPIDOGREL 75MG TAB 75 MG PO (09:50)
[2023-09-15] MEDS: METOPROLOL SUCCINATE XL 25MG TABLET 12.5 MG PO (09:50)
[2023-09-15] MEDS: FUROSEMIDE 20MG TABLET 20 MG PO (09:50)
[2023-09-15] MEDS: RANOLAZINE 500MG ER TABLET 500 MG PO ×2 (09:50→21:05)
[2023-09-15] MEDS: ASPIRIN EC 81MG TABLET 81 MG PO (09:50)
[2023-09-15] MEDS: EMPAGLIFLOZIN 10MG TABLET 10 MG PO (09:50)
[2023-09-15] MEDS: POTASSIUM CHLORIDE 20MEQ TAB 40 MEQ PO (09:50)
--- NOTE | 2023-09-15 10:26 | HMH.OTEV ---
OT Inpatient Evaluation Rehab OT IP Evaluation Start: 09/15/23 07:08 Freq: ONCE Status: Active Protocol: [facility]15[facility]23 10[facility]16 [facility] (Rec: 09/15/23 10:25 [facility] [id number]) Rehab OT IP Assessment Subjective History Pt oriented x 3 on arrival. Pt agreeable to engage in therapy evaluation. Pt admitted on 09/14/23 due to being in V-tach. This is a 78 -year-old female with history of hyperlipidemia, hypertension, CHF, CAD [place] with life vest in place presenting with V. tach. Patient was discharged home today with had LifeVest placed. Patient called EMS because vest was alarming. EMS showed up and patient was in sustained V. tach. Patient normotensive, asymptomatic. She states she feels a vibrating going from my chest to my back. Prior to being in the hosptial . Pt lived at home with . Pt reports normally she is independent with all ADLs. usually completes all IADLs. Pt does use a rolling walker as needed . Subjective I feel better than I did. Objective Patient Orientation Person,Place,Birthday Right Upper Extremity Gross ROM WFL Left Upper Extremity Gross ROM WFL Bed Mobility bed mobility-scooting,bed mobility - supine/sit Assist Level Supervision/Stand by Transfer Training Sit/Stand Transfer Assist Level Supervision/Stand by Chair Transfer Ability Supervision/Stand by Chair Transfer Technique Sit to/from Ambulatory Chair Transfer Assistive Devices None Lower Body Dressing Ability Standby Assistance Rehab OT IP prob,goals,plan Problems Date of Evaluation: 09/15/23 Rehab Potential Rehab Potential Innapropriate for Skilled Therapy Discharge Plan OT Discharge Plan Pt appears to be at her baseline with functional transfers and ADL independence . Pt can return home with once she is medically stable per physician. Therapist recommends home health evaluation up returning home for home environment safety. Eval Complexity Eval Charge Codes 42045 - Moderate Complexity PHYSICIAN CERTIFICATION: I certify the specified therapy services for Stefanie Randolph are required, authorized, and reviewed every 30 days.
--- NOTE | 2023-09-15 11:29 | SW/DCPLANNER ---
Addendum entered by Nat Irvin RN 09/19/23 13:44: Notified Angelina that patient is discharging home today. Addendum entered by Mila Navarro 09/15/23 13:22: Angelina w/ [facility] stated that services will begin this week for this patient. Original Note: I spoke w/ this patient regarding discharge plans. PT/OT evaluated patient and recommended home health services. Patient is agreeable to home health services and prefers to use [facility]. Patient information/order will be faxed this AM. The plan for this patient is to discharge home later today.
--- NOTE | 2023-09-15 11:31 | HMH.PTEV ---
Physical Therapy Evaluation Rehab PT IP Evaluation Start: 09/15/23 07:09 Freq: ONCE Status: Active Protocol: Document 09/15/23 10:29 ER[facility]IN[facility] (Rec: 09/15/23 11:31 ROSITA [id number]) Subjective/History History History Pt is a 78 y/o female who presented to [facility] on 09/14/23 with V. tach. Per history & physical note, patient was discharged home on 09/14/23 and patient called EMS because life vest was alarming. EMS showed up and patient was in sustained V. tach. Patient normotensive, asymptomatic. She states she feels a vibrating going from my chest to my back. No other complaints at this time. Readmitted. Medical History: Acute and chronic respiratory failure with hypoxia, Colon cancer, Dementia, Myocardial infarction, Pleural effusion, left Subjective Subjective Pt reports she lives at home with her . Pt reports she is independent with all ADLs, iADLs, and ambulation at baseline. Pt states she has a rolling walker she uses as needed. Pt denies recent falls . Pt reports she does not wear oxygen at home although nurse stated she does, pt with history of dementia. New diagnosis of cancer in past 12 Yes months? Rehab PT IP Eval Objective Appearance Patient Behavior Appropriate,Cooperative Patient Orientation Person,Place,Name,Birthday Difficulty following instructions none Speech Pattern Clear,Appropriate Ambulation Patient Able to Ambulate Yes Ambulation Observation IP General Gait Pattern Observation Shuffling Step Ambulation Distance (feet) 15 Ambulation Assistive Device None Ambulation Ability Supervision/Stand by Balance Ability to Arise Able, uses arms to help Sitting Balance Steady, safe Standing Balance Steady, wide stance Dynamic Sitting Balance Ability Good Dynamic Standing Balance Ability Good Transfers Bed Transfer Ability Supervision/Stand by Sit to Stand Bed Transfer Ability Supervision/Stand by Rehab PT IP prob,goals,plan Problems Date of Evaluation: 09/15/23 Rehab Potential Rehab Potential Innapropriate for Skilled Therapy Discharge Plan PT Discharge Plan Pt appears to be at her baseline with functional mobility and is appropriate to discharge home with assist from her once deemed medically stable by MD. Recommend home health evaluation upon returning home for evaluation of home environment safety. Eval Complexity Eval Charge Codes 38472 - Moderate Complexity PHYSICIAN CERTIFICATION: I certify the specified therapy services for Stefanie Agustín are required, authorized, and reviewed every 30 days.
[2023-09-15] MEDS: FLUTICASONE/SALMETEROL 500/50MCG DISKUS 1 PUFF IH ×2 (12:51→18:11)
--- NOTE | 2023-09-15 14:30 | EXP.CARD.CON ---
History of Present Illness History of Present Illness Consult date: 09/15/23 Requesting physician: Alli Summers Consult reason: known to you Chief complaint: V-tach History of present illness: This is a 78-year-old white female who presented to the emergency department with a LifeVest in place and ventricular tachycardia. She has a known history of hypertension, hyperlipidemia, CAD, HFrEF. The patient had been discharged from the hospital and then returned on the same day after calling EMS because she could not get her LifeVest to stop alarming. The patient states that she really did not know how to work the LifeVest or how to get the vest started alarming so she called EMS. When EMS arrived the patient was found to be in sustained V. tach. She was normotensive and asymptomatic. She just states that she felt a vibrating sensation going from her chest to her back. The patient states that she had no symptoms whatsoever when she called EMS, she just needed help stopping the LifeVest from alarming. She denied any chest pain or pressure. She denies any shortness of breath or edema. She denies any fever, chills, nausea, vomiting, diarrhea, PND orthopnea. The patient still declines any symptoms. On arrival here to [facility] the patient was still in ventricular tachycardia. This was a sustained event. She was started on an amiodarone drip and remains on amiodarone at this time. She has had significant suppression of her ventricular tachycardia. She has had a few intermittent runs of about 3 beats of ventricular tachycardia since being started on the amiodarone drip. [facility] Disclaimer: The information contained in this section may have been updated after the patient was seen, as this information can be updated by other users. Medical History (Updated 09/15/23 @ 14:36 by Lyn Nunez APRN) Acute and chronic respiratory failure with hypoxia Chronic respiratory failure with hypoxia Colon cancer Coronary artery disease Dementia Heart failure with reduced ejection fraction HLD (hyperlipidemia) Ischemic cardiomyopathy Myocardial infarction Paroxysmal atrial fibrillation Pleural effusion, left Pulmonary edema Ventricular tachycardia Surgical History H/O heart artery stent History of colon resection Hx of CABG Hx of cholecystectomy Status post carotid surgery Social History Smoking Status: Never smoker alcohol intake: never current occupational status: retired Travel in the last 8 weeks: None Review of Systems Review of Systems Review of systems:: pertinent systems reviewed and negative unless documented below Constitutional Constitutional: Reports system reviewed and no additional complaints, except as documented Eyes Eyes: Reports system reviewed and no additional complaints, except as documented ENT Ears, Nose, Mouth, and Throat: Reports system reviewed and no additional complaints, except as documented *Cardiovascular Cardiovascular: Reports system reviewed and no additional complaints, except as documented *Respiratory Respiratory: Reports system reviewed and no additional complaints, except as documented *Gastrointestinal Gastrointestinal: Reports system reviewed and no additional complaints, except as documented *Genitourinary Genitourinary: Reports system reviewed and no additional complaints, except as documented *Musculoskeletal Musculoskeletal: Reports system reviewed and no additional complaints, except as documented Integumentary/Breasts Skin/Breast: Reports system reviewed and no additional complaints, except as documented *Neurologic Neurologic: Reports system reviewed and no additional complaints, except as documented Psychiatric Psychiatric: Reports system reviewed and no additional complaints, except as documented Endocrine Endocrine: Reports system reviewed and no additional complaints, except as documented Hematologic/Lymphatic Hematologic/Lymphatic: Reports system reviewed and no additional complaints, except as documented Allergic/Immunologic Allergic/Immunologic: Reports system reviewed and no additional complaints, except as documented Exam Data for Last 24 hours Vital signs and Labs for Last 24 Hours: Temp Pulse Resp BP Pulse Ox O2 Del Method O2 Flow Rate 98.5 F 60 18 119/48 L 92 L Nasal Cannula 3 09/15/23 11:49 09/15/23 12:00 09/15/23 10:00 09/15/23 10:00 09/15/23 10:00 09/15/23 13:00 09/15/23 13:00 Laboratory Results - last 24 hr 09/14/23 22:56: WBC 10.6, RBC 3.35 L, Hgb 9.2 L, Hct 29.1 L, MCV 87.1, MCH 27.4, MCHC 31.4 L, RDW 17.2, Plt Count 480 H, MPV 9.7, Neut % (Auto) 70.9, Lymph % (Auto) 23.3, [place] % (Auto) 4.6, Eos % (Auto) 0.7, Baso % (Auto) 0.4, Neut # (Auto) 7.5, Lymph # (Auto) 2.5, [place] # (Auto) 0.5, Eos # (Auto) 0.1, Baso # (Auto) 0.1, Sodium 137, Potassium 3.9, Chloride 102, Carbon Dioxide 29, Anion Gap 9.9, BUN 12, Creatinine 1.00, Estimated Creat Clear 51, Estimated GFR 54 L, Est GFR ( Amer) 65, Glucose 112 H, Calcium 8.4, Total Bilirubin 0.6, AST 26, ALT 18, Alkaline Phosphatase 96, Troponin I 0.13 H, NT-Pro-B Natriuret Pep 3870 H, Total Protein 6.1 L, Albumin 2.9 L, Globulin 3.2, Albumin/Globulin Ratio 0.9 L, TSH 0.13 L, Thyroxine (T4) 10.2 09/15/23 02:30: Troponin I 0.12 H 09/15/23 05:48: WBC 8.1, RBC 2.84 L, Hgb 8.1 L D, Hct 25.1 L, MCV 88.5, MCH 28.4, MCHC 32.1, RDW 16.5, Plt Count 382, MPV 9.2, Neut % (Auto) 67.9, Lymph % (Auto) 25.2, [place] % (Auto) 5.4, Eos % (Auto) 1.2, Baso % (Auto) 0.2, Neut # (Auto) 5.5, Lymph # (Auto) 2.0, [place] # (Auto) 0.4, Eos # (Auto) 0.1, Baso # (Auto) 0.0, Sodium 137, Potassium 4.0, Chloride 102, Carbon Dioxide 28, Anion Gap 11.0, BUN 11, Creatinine 0.90, Estimated Creat Clear 50, Estimated GFR 61, Est GFR ( Amer) 74, Glucose 99, Calcium 8.2 L, Total Bilirubin 0.6, AST 22, ALT 14, Alkaline Phosphatase 84, Troponin I 0.11 H, Total Protein 5.4 L, Albumin 2.5 L D, Globulin 2.9, Albumin/Globulin Ratio 0.9 L I & O for Last 24 hours: Intake & Output 09/12/23 09/13/23 09/14/23 09/15/23 23:59 23:59 23:59 23:59 Intake Total 707 / 707 Output Total 0 / 0 Balance 707 / 707 Weight 150 lb 146 lb 4 oz Narrative: Telemetry strips do show ventricular tachycardia. EKG shows sinus rhythm with a rate of 87 bpm, occasional PVC and old inferior WI pattern. Constitutional Constitutional: no acute distress and average body habitus *Routine HEENT Exam Head: Present normocephalic and atraumatic ENT: Present mucous membranes moist *Routine Neck Exam Neck: Present supple, full ROM and normal carotid upstroke; Absent JVD, carotid bruit or lymphadenopathy *Routine Respiratory Exam Respiratory: Present CTA bilaterally, normal respiratory effort, able to speak in complete sentences and symmetric chest movement *Routine Cardiovascular Exam Cardiovascular: Present RRR, Normal S1 and Normal S2; Absent murmur or gallop *Routine Abdominal Exam Abdominal: Present soft and normoactive bowel sounds; Absent tenderness, distended or organomegaly *Routine Extremities Exam Extremities: Present full ROM, pulses intact and normal capillary refill; Absent cyanosis, clubbing or edema *Routine Skin Exam Skin: Present intact and warm; Absent erythema *Routine Neurological Exam Neurological: Present alert, oriented X3 and CN II-XII intact; Absent sensory deficit or motor deficit Routine Psychiatric Exam Psychiatric: Present normal affect Meds Home Medications and Allergies Home Medications Medication Instructions Recorded Confirmed Type aspirin 81 mg tablet,delayed 81 mg PO DAILY heart health 12/17/18 09/15/23 History release (Aspir-) atorvastatin 40 mg tablet 40 mg PO DAILY High cholesterol 12/17/18 09/15/23 History apixaban 5 mg tablet 5 mg PO BID Blood thinner/Afib 11/03/21 09/15/23 History nitroglycerin 0.4 mg sublingual 0.4 mg sublingual Q5MINP PRN Angina 09/01/23 09/15/23 History tablet (Nitrostat) ranolazine 500 mg tablet,extended 500 mg PO BID 09/01/23 09/15/23 History release,12 hr L.acidophilus-L.paracasei-B.bifidum-S.thermophl 1 cap PO DAILY 30 days #30 caps 09/05/23 09/15/23 Rx 8 billion cell capsule (RisaQuad) clopidogrel 75 mg tablet 75 mg PO DAILY 30 days #30 tabs 09/05/23 09/15/23 Rx empagliflozin 10 mg tablet 10 mg PO DAILY 30 days #30 tabs 09/05/23 09/15/23 Rx (Jardiance) furosemide 20 mg tablet 20 mg PO DAILY 30 days #30 tabs 09/05/23 09/15/23 Rx metoprolol succinate 25 mg 12.5 mg PO DAILY 30 days #15 tabs 09/05/23 09/15/23 Rx tablet,extended release 24 hr potassium chloride 20 mEq 40 meq PO BID 30 days #120 tabs 09/05/23 09/15/23 Rx tablet,extended release(part/cryst) (Klor-Con M) sacubitril 24 mg-valsartan 26 mg 1 tab PO BID 30 days #60 tabs 09/05/23 09/15/23 Rx tablet (Entresto) spironolactone 25 mg tablet 12.5 mg PO DAILY 30 days #15 tabs 09/05/23 09/15/23 Rx fluticasone 500 mcg-salmeterol 50 1 inh inhalation BIDRT 30 days #1 09/14/23 09/15/23 Rx mcg/dose blistr powdr for ea inhalation (Advair Diskus) levofloxacin 750 mg tablet 750 mg PO 1300 2 days #2 tabs 09/14/23 09/15/23 Rx New Prescriptions to Start Prescriptions: Allergies Allergy/AdvReac Type Severity Reaction Status Date / Time Corticosteroids AdvReac Unknown Verified 09/02/23 07:18 (Glucocorticoids) allergy reaction Assessment and Plan *Assessment and plan (1) Ventricular tachycardia: Status: Acute Category: Medical Code(s): I47.20 - Ventricular tachycardia, unspecified (2) Coronary artery disease: Status: Acute Qualifiers: Associated angina: without angina Coronary Disease-Associated Artery/Lesion type: [place] artery [place] vs. transplanted heart: [place] heart Qualified Code(s): I25.10 - Atherosclerotic heart disease of [place] coronary artery without angina pectoris Category: Medical Code(s): I25.10 - Atherosclerotic heart disease of [place] coronary artery without angina pectoris (3) Paroxysmal atrial fibrillation: Status: Acute Category: Medical Code(s): I48.0 - Paroxysmal atrial fibrillation (4) Heart failure with reduced ejection fraction: Status: Acute Category: Medical Code(s): I50.20 - Unspecified systolic (congestive) heart failure (5) HLD (hyperlipidemia): Status: Acute Qualifiers: Hyperlipidemia type: unspecified Qualified Code(s): E78.5 - Hyperlipidemia, unspecified Category: Medical Code(s): E78.5 - Hyperlipidemia, unspecified (6) Chronic respiratory failure with hypoxia: Status: Acute Category: Medical Code(s): J96.11 - Chronic respiratory failure with hypoxia (7) Ischemic cardiomyopathy: Status: Acute Category: Medical Code(s): I25.5 - Ischemic cardiomyopathy Plan Plan: 1. This is a 78-year-old white female who Enrique presented to the hospital because she could not get her LifeVest to stop alarming. The patient was found to be in sustained ventricular tachycardia. She has been started on amiodarone drip and her ventricular tachycardia has significantly improved. Will continue her amiodarone drip. Will also start her on amiodarone 400 mg 3 times daily and complete her 24-hour infusion of the amiodarone. 2. The patient did have an elevated troponin which is most likely from demand ischemia secondary to the ventricular tachycardia. 3. The patient does have severe LV dysfunction and has a LifeVest in place due to her ejection fraction of 30%. The patient is having some trouble working the LifeVest on her own. She does have a little bit of underlying dementia. 4. Due to her severe LV dysfunction and sustained ventricular tachycardia we do recommend proceeding with AICD placement at this time. 5. We will hold the patient's Eliquis for today and tomorrow, with plans of proceeding with AICD placement on likely Friday. 6. The patient has been educated the risk and benefits of proceeding with a ID placement. The patient verbalizes understanding and is agreeable in proceeding with the procedure. 7. Coronary artery disease is present. She denies any chest pain or pressure at this time. No plans for repeat left cardiac catheterization at this time. 8. Her blood pressure is on the lower side. But acceptable. 9. Continue metoprolol, Jardiance and Entresto, Lasix and spironolactone for HFrEF. 10. The patient does have paroxysmal atrial fibrillation. She is on Eliquis for long-term anticoagulation. Will hold this in preparation for AICD placement. She is currently in sinus rhythm. 11. The patient's TSH is 0.13. She will likely need to see endocrinology for management of hyperthyroidism following her hospitalization. However, this does not change our plan for her ventricular tachycardia and severe LV dysfunction. 12. Further recommendations will be made pending the patient's response to treatment. Thank you for the opportunity to help participate in the care of this patient. All recommendations and orders are per Dr. Hyde.
[2023-09-15] MEDS: AMIODARONE 200MG TABLET 400 MG PO ×2 (16:23→21:05)
[2023-09-15] MEDS: CEFEPIME HCL 2 GM in 0.9 % SODIUM CHLORIDE 100 ML IV (16:24)
--- NOTE | 2023-09-15 17:41 | PC.NURSE ---
Pt has appeared to relax in her room this shift with family present periodically at bedside. pt family to bring in lifeCSDNt device so that information may be downloaded. pt lung sounds are clear but diminished t/ with occ crackles in fawad bases. bowel sounds are active in all quads. pt has pacer insertion pending for wed. family and pt aware. nad noted.
--- NOTE | 2023-09-15 20:19 | P.PN_ITS ---
Subjective *Date: 09/15/23 *Time: 23:26 Interval history: Patient tolerating IV amiodarone. Doing better with no significant runs of V. tach since initiating amiodarone. Patient asymptomatic. She denies palpitations or chest pain. Stable on 3 L nasal cannula oxygen. No nausea or vomiting. Cardiology evaluating today. Medical Exam Vital signs and Labs for Last 24 Hours: Vital Signs Temp Pulse Pulse Resp BP BP Pulse Ox 09/15/23 18:50 09/15/23 18:00 60 20 95/49 L 90 L 09/15/23 18:11 94 L 09/15/23 16:00 60 09/15/23 16:00 60 18 95/52 L 91 L 09/15/23 14:00 62 18 91/41 L 90 L 09/15/23 12:00 60 09/15/23 16:00 61 91 L 09/15/23 12:00 56 L 20 94/44 L 90 L 09/15/23 17:00 09/15/23 15:00 09/15/23 15:16 98.2 F 09/15/23 13:00 09/15/23 12:00 60 09/15/23 08:00 70 09/15/23 11:00 09/15/23 11:49 98.5 F 09/15/23 10:00 60 18 119/48 L 92 L 09/15/23 08:00 91 H 18 99/41 L 91 L 09/15/23 09:00 09/15/23 07:40 66 91 L 09/15/23 08:00 98.3 F 09/15/23 06:00 98.1 F 62 18 92/47 L 92 L 09/15/23 04:00 64 09/15/23 04:00 98.6 F 65 18 91/43 L 92 L 09/15/23 02:00 98.5 F 67 18 92/46 L 93 L 09/15/23 00:00 75 09/15/23 00:00 98.6 F 70 20 104/39 L 93 L 09/14/23 23:57 98.2 F 82 23 106/43 L 09/14/23 23:33 82 23 106/43 L 93 L 09/14/23 23:01 81 17 101/48 L 93 L 09/14/23 22:49 98.1 F 93 H 20 107/60 L 92 L O2 Del Method O2 Flow Rate 09/15/23 18:50 Nasal Cannula 3 09/15/23 18:00 Nasal Cannula 3 09/15/23 18:11 Nasal Cannula 3 09/15/23 16:00 09/15/23 16:00 Nasal Cannula 3 09/15/23 14:00 Nasal Cannula 3 09/15/23 12:00 09/15/23 16:00 Nasal Cannula 2 09/15/23 12:00 Nasal Cannula 3 09/15/23 17:00 Nasal Cannula 3 09/15/23 15:00 Nasal Cannula 3 09/15/23 15:16 09/15/23 13:00 Nasal Cannula 3 09/15/23 12:00 09/15/23 08:00 09/15/23 11:00 Nasal Cannula 3 09/15/23 11:49 09/15/23 10:00 Nasal Cannula 3 09/15/23 08:00 Nasal Cannula 3 09/15/23 09:00 Nasal Cannula 3 09/15/23 07:40 Nasal Cannula 3 09/15/23 08:00 09/15/23 06:00 Nasal Cannula 3 09/15/23 04:00 09/15/23 04:00 Nasal Cannula 3 09/15/23 02:00 Nasal Cannula 3 09/15/23 00:00 09/15/23 00:00 Nasal Cannula 3 09/14/23 23:57 Nasal Cannula 3 09/14/23 23:33 09/14/23 23:01 09/14/23 22:49 Nasal Cannula 3 Intake and Output 09/15/23 09/15/23 09/15/23 07:59 15:59 23:59 Intake Total 347 / 1239 360 / 1239 532 / 1239 Output Total 0 / 0 0 / 0 0 / 0 Balance 347 / 1239 360 / 1239 532 / 1239 Intake: Intake, Oral Amount 360 / 600 240 / 600 Intake, Total IV Amount 347 / 639 292 / 639 Amiodarone HCl 150 mg In 100 / 100 Dextrose 5 % in Water 100 ml @ 618 mls/hr IV ONCE ONE Rx#: [id number] Amiodarone HCl 900 mg In 197 / 389 192 / 389 Dextrose 5 % in Water 500 ml @ 33.3 mls/hr IV .[id number] [facility] Rx# :[id number] Cefepime HCl 1 gm In 0.9 % 50 / 150 100 / 150 Sodium Chloride 50 ml @ 100 mls /hr IV Q12H [facility] Rx#:[id number] Output: Output, Urine Amount 0 / 0 0 / 0 0 / 0 Other: Number of Unmeasured Voids 1 1 1 Weight 66.338 kg Patient Weight 09/15/23 23:59 Weight 66.338 kg Laboratory Results - last 24 hr 09/14/23 22:56: WBC 10.6, RBC 3.35 L, Hgb 9.2 L, Hct 29.1 L, MCV 87.1, MCH 27.4, MCHC 31.4 L, RDW 17.2, Plt Count 480 H, MPV 9.7, Neut % (Auto) 70.9, Lymph % (Auto) 23.3, [place] % (Auto) 4.6, Eos % (Auto) 0.7, Baso % (Auto) 0.4, Neut # (Auto) 7.5, Lymph # (Auto) 2.5, [place] # (Auto) 0.5, Eos # (Auto) 0.1, Baso # (Auto) 0.1, Sodium 137, Potassium 3.9, Chloride 102, Carbon Dioxide 29, Anion Gap 9.9, BUN 12, Creatinine 1.00, Estimated Creat Clear 51, Estimated GFR 54 L, Est GFR ( Amer) 65, Glucose 112 H, Calcium 8.4, Total Bilirubin 0.6, AST 26, ALT 18, Alkaline Phosphatase 96, Troponin I 0.13 H, NT-Pro-B Natriuret Pep 3870 H, Total Protein 6.1 L, Albumin 2.9 L, Globulin 3.2, Albumin/Globulin Ratio 0.9 L, TSH 0.13 L, Thyroxine (T4) 10.2 09/15/23 02:30: Troponin I 0.12 H 09/15/23 05:48: WBC 8.1, RBC 2.84 L, Hgb 8.1 L D, Hct 25.1 L, MCV 88.5, MCH 28.4, MCHC 32.1, RDW 16.5, Plt Count 382, MPV 9.2, Neut % (Auto) 67.9, Lymph % (Auto) 25.2, [place] % (Auto) 5.4, Eos % (Auto) 1.2, Baso % (Auto) 0.2, Neut # (Auto) 5.5, Lymph # (Auto) 2.0, [place] # (Auto) 0.4, Eos # (Auto) 0.1, Baso # (Auto) 0.0, Sodium 137, Potassium 4.0, Chloride 102, Carbon Dioxide 28, Anion Gap 11.0, BUN 11, Creatinine 0.90, Estimated Creat Clear 50, Estimated GFR 61, Est GFR ( Amer) 74, Glucose 99, Calcium 8.2 L, Total Bilirubin 0.6, AST 22, ALT 14, Alkaline Phosphatase 84, Troponin I 0.11 H, Total Protein 5.4 L, Albumin 2.5 L D, Globulin 2.9, Albumin/Globulin Ratio 0.9 L I & O for Labs for Last 24 Hours: Intake & Output 09/12/23 09/13/23 09/14/23 09/15/23 23:59 23:59 23:59 23:59 Intake Total 1239 / 1239 Output Total 0 / 0 Balance 1239 / 1239 Weight 68.039 kg 66.338 kg Constitutional: Present no acute distress and chronically ill appearing Head: Present atraumatic ENT: Present normal exam Neck: Present normal inspection Respiratory: Present prolonged expiratory phase, rhonchi, crackles (bases bilaterally), diminished air movement (Left lung field) and normal respiratory effort; Absent wheezes Cardiac: Present Reg Rate and Rhythm GI: Present soft and normal bowel sounds; Absent distention or tenderness Extremities: Present normal inspection and full ROM; Absent edema Skin: Present intact; Absent erythema Neuro: Present Grossly Intact, alert, awake, oriented x 3 and moves all extremities Assessment and Plan *Assessment and plan (1) Ventricular tachycardia: Status: Acute Category: Medical Code(s): I47.20 - Ventricular tachycardia, unspecified (2) Heart failure with reduced ejection fraction: Status: Acute Category: Medical Code(s): I50.20 - Unspecified systolic (congestive) heart failure (3) Paroxysmal atrial fibrillation: Status: Acute Category: Medical Code(s): I48.0 - Paroxysmal atrial fibrillation (4) HLD (hyperlipidemia): Status: Acute Qualifiers: Hyperlipidemia type: unspecified Qualified Code(s): E78.5 - Hyperlipidemia, unspecified Category: Medical Code(s): E78.5 - Hyperlipidemia, unspecified Plan 78-year-old female with history of hyperlipidemia, hypertension, CHF, CAD [place] with life vest in place presenting with V. tach. Patient was discharged home today with had LifeVest placed. Patient called EMS because vest was alarming. On arrival monomorphic VTach confirmed on monitor. IV bolus of amiodarone given with subsequently continuous infusion. Findings discussed with ER. Agreed for readmission. Improved rate control this morning. Cardiology consulted. Problems addressed as follows: -Sustained V. Tach - HFrEF Finishing amiodarone drip today, transition to PO amiodarone 400mg BID cardiology consulted, discussed case, continue amiodarone. Evaluate for AICD placement in the coming days. Holding anticoagulation -Recent subacute STEMI and coronary stenting /HFrEF with EF 30% this admission Continue aspirin 81 mg daily and Plavix 75 mg daily Holding Entresto and jardiance given hypotension Continue Lasix 20 mg daily orally unless blood pressure begins to drop Hx Paroxysmal atrial fibrillation: holding eliquis in setting of planned AICD placement Hyperlipidemia: Continue statin therapy - Hx of current hospitalization for sepsis and hypoxic respiratory failure was on levaquin at home. switched to cefepime to avoid QT interation, completing 7d of therapy today Full code
[2023-09-15] MEDS: ATORVASTATIN 40MG TABLET 40 MG PO (21:04)
[2023-09-15] MEDS: PANTOPRAZOLE 40MG TABLET 40 MG PO (21:05)
[2023-09-16] VITALS (18 sets, daily range): BP systolic 73–102; BP diastolic 35–58; PULSE 50–65; RESP 12–20; TEMP 36.6–37.4; O2SAT 90–96; BMI 23.6
[2023-09-16] MEDS: FLUTICASONE/SALMETEROL 500/50MCG DISKUS 1 PUFF IH ×2 (06:05→19:04)
[2023-09-16 06:39] LABS: Basophils % 0.2 % (0.1-2.0); Chloride 104 mmol/L (98-107); Eosinophils # 0.2 K/mm3 (0.0-0.4); Eosinophils % 2.2 % (0.1-12.0); Hematocrit 24.1 % (37.0-47.0); Hemoglobin 7.6 g/dL (12.2-16.2); Lymphocytes % 20.7 % (10-50); Mean Corpuscular HGB Conc 31.5 g/dL (31.8-35.4); Mean Corpuscular Hemoglobin 27.7 pg (27.0-31.2); Mean Platelet Volume 8.8 fl (7.4-10.4); Monocytes # 0.4 K/mm3 (0.1-1.0); Monocytes % 3.9 % (1.7-9.3); Neutrophils # 7.1 K/mm3 (1.8-7.8); Neutrophils % 73.1 % (37.0-80.0); Platelet Count 440 K/mm3 (142-424); Potassium 4.2 mmoL/L (3.5-5.1); Red Blood Count 2.74 M/mm3 (4.20-5.40); Red Cell Distribution Width 16.9 % (11.5-17.5); Sodium 137 mmol/L (136-145); White Blood Count 9.7 K/mm3 (4.8-10.8)
[2023-09-16 06:42] LABS: Anion Gap 9.2 mEq/L (5-15); Blood Urea Nitrogen 10 mg/dl (7-17); Calcium 8.5 mg/dl (8.4-10.2); Carbon Dioxide 28 mmol/L (22.0-30.0); Chol/HDL Ratio 5.1 (1-3.5); Cholesterol 92 mg/dl (140-200); Creatinine Clearance Estimated 49 mL/min (50-200); Estimated Glomerular Filt Rate 61 ml/min (>60); GFR (African American) 74 ML/MIN (>60); Glucose 105 mg/dl (74-100); HDL Cholesterol 18 mg/dl (40-60); Triglycerides 108 mg/dl (30-150); VLDL Cholesterol 22 mg/dL (0-40)
[2023-09-16 06:53] LABS: Direct LDL Cholesterol 54.81 mg/dL (100-129)
[2023-09-16 07:12] LABS: Thyroid Stimulating Hormone 0.29 uIU/mL (0.465-4.68)
[2023-09-16 07:59] LABS: Free T4 (Free Thyroxine) 1.33 ng/dl (0.78-2.19)
[2023-09-16] MEDS: CLOPIDOGREL 75MG TAB 75 MG PO (08:53)
[2023-09-16] MEDS: ASPIRIN EC 81MG TABLET 81 MG PO (08:53)
[2023-09-16] MEDS: RANOLAZINE 500MG ER TABLET 500 MG PO ×2 (08:53→21:16)
[2023-09-16] MEDS: FUROSEMIDE 20MG TABLET 20 MG PO (08:54)
[2023-09-16] MEDS: SPIRONOLACTONE 25MG TABLET 12.5 MG PO (08:54)
[2023-09-16] MEDS: AMIODARONE 200MG TABLET 400 MG PO ×3 (08:54→21:16)
--- NOTE | 2023-09-16 09:34 | PC.NURSE ---
902 contacted lettrs for assistance to complete download of alarms. download completed at 907. Jose Nunez in cardiology notified that print outs of auto alarms were being faxed to cardiology office with Attn Lyn Nunez .
[2023-09-16] MEDS: EMPAGLIFLOZIN 10MG TABLET 10 MG PO (11:52)
[2023-09-16] MEDS: ACETAMINOPHEN 325MG TAB 650 MG PO (11:53)
--- NOTE | 2023-09-16 13:12 | EXP.CARD.PN ---
Subjective Subjective Date: 09/16/23 Time: 09:30 Principal diagnosis: v-tach Interval history: This is a 78-year-old white female presented to the emergency department because she could not get her LifeVest to stop alarming. The patient was found to be in sustained ventricular tachycardia. She has been started on amiodarone drip with suppression of the ventricular ectopy. She has been converted over to oral amiodarone and her amiodarone drip has finished infusing and has been stopped. She has been hypotensive so her Entresto and metoprolol are currently being held. She denies any chest pain or pressure this morning. She denies any shortness of breath or edema. She denies any fever, chills, nausea, vomiting, diarrhea, PND or orthopnea. Exam Data for Last 24 hours Vital signs and Labs for Last 24 Hours: Temp Pulse Resp BP Pulse Ox O2 Del Method O2 Flow Rate 97.9 F 62 20 84/46 L 94 L Nasal Cannula 3 09/16/23 12:00 09/16/23 12:00 09/16/23 12:00 09/16/23 12:00 09/16/23 12:00 09/16/23 12:00 09/16/23 12:00 Laboratory Results - last 24 hr 09/16/23 06:20: WBC 9.7, RBC 2.74 L, Hgb 7.6 L, Hct 24.1 L, MCV 88.0, MCH 27.7, MCHC 31.5 L, RDW 16.9, Plt Count 440 H, MPV 8.8, Neut % (Auto) 73.1, Lymph % (Auto) 20.7, [place] % (Auto) 3.9, Eos % (Auto) 2.2, Baso % (Auto) 0.2, Neut # (Auto) 7.1, Lymph # (Auto) 2.0, [place] # (Auto) 0.4, Eos # (Auto) 0.2, Baso # (Auto) 0.0, Sodium 137, Potassium 4.2, Chloride 104, Carbon Dioxide 28, Anion Gap 9.2, BUN 10, Creatinine 0.90, Estimated Creat Clear 49, Estimated GFR 61, Est GFR ( Amer) 74, Glucose 105 H, Calcium 8.5, Triglycerides 108, Cholesterol 92 L, LDL Cholesterol Direct 54.81 L, VLDL Cholesterol 22, HDL Cholesterol 18 L, Cholesterol/HDL Ratio 5.1 H, TSH 0.29 L D, Free T4 1.33 I & O for Last 24 hours: Intake & Output 09/13/23 09/14/23 09/15/23 09/16/23 23:59 23:59 23:59 23:59 Intake Total 1239 / 1479 960 / 960 Output Total 0 / 0 0 / 0 Balance 1239 / 1479 960 / 960 Weight 150 lb 146 lb 4 oz 141 lb 12.8 oz Narrative: Telemetry strip shows sinus rhythm with a rate of 58 bpm. Constitutional Constitutional: no acute distress and average body habitus *Routine HEENT Exam Head: Present normocephalic and atraumatic ENT: Present mucous membranes moist *Routine Neck Exam Neck: Present supple, full ROM and normal carotid upstroke; Absent JVD, carotid bruit or lymphadenopathy *Routine Respiratory Exam Respiratory: Present CTA bilaterally, normal respiratory effort, able to speak in complete sentences and symmetric chest movement *Routine Cardiovascular Exam Cardiovascular: Present RRR, Normal S1 and Normal S2; Absent murmur or gallop *Routine Abdominal Exam Abdominal: Present soft and normoactive bowel sounds; Absent tenderness, distended or organomegaly *Routine Extremities Exam Extremities: Present full ROM, pulses intact and normal capillary refill; Absent cyanosis, clubbing or edema *Routine Skin Exam Skin: Present intact and warm; Absent erythema *Routine Neurological Exam Neurological: Present alert, oriented X3 and CN II-XII intact; Absent sensory deficit or motor deficit Routine Psychiatric Exam Psychiatric: Present normal affect Progress Note: A&P Assessment and plan (1) Ventricular tachycardia: Status: Acute (2) Heart failure with reduced ejection fraction: Status: Acute (3) Paroxysmal atrial fibrillation: Status: Acute (4) HLD (hyperlipidemia): Status: Acute (5) Coronary artery disease: Status: Acute (6) Pulmonary edema: Status: Acute (7) Ischemic cardiomyopathy: Status: Acute (8) Chronic respiratory failure with hypoxia: Status: Acute Assessment and Plan Assessment and Plan for All Diagnoses:: Plan: 1. This is a 78-year-old female who presented to the hospital because she was unable to get her LifeVest to stop alarming. The patient was found to be in sustained ventricular tachycardia. She was started on an amiodarone drip and her ventricular tachycardia did improve. She has been started on oral amiodarone as well and her amiodarone drip has been stopped. Will continue oral amiodarone 400 mg p.o. 3 times daily at this time. 2. The patient did have an elevated troponin which is most likely from demand ischemia from the ventricular tachycardia. 3. The patient does have severe LV dysfunction. She she is at an increased risk of sudden cardiac due to her severe LV dysfunction. The patient has had sustained ventricular tachycardia in the setting of severe LV dysfunction. Will plan to proceed with AICD placement tomorrow for primary prevention. 4. The patient has been educated on the risk and benefits of proceeding with AICD placement. The patient verbalizes understanding and is agreeable in proceeding with the procedure. 5. The patient will be n.p.o. after midnight tonight. 6. Continue to hold her Eliquis in preparation for AICD placement tomorrow. 7. Her coronary artery disease is present. She denies any chest pain or pressure. No plans for repeat left cardiac catheterization at this time. 8. Her blood pressure has been low today. We are currently holding her metoprolol and Entresto due to hypotension. 9. Her LDL goal is less than 55. Her LDL is 54. She is on a statin. 10. Restart Jardiance 10 mg p.o. daily for HFrEF. 11. The patient does have paroxysmal atrial fibrillation. She is currently in sinus rhythm. On Amio. 12. Her TSH is low at 0.29 but her free T4 is normal. This is most likely from an acute illness and not likely from true hyperthyroidism. 13. Further recommendations will be made pending the patient's response to treatment. Thank you for the opportunity to help participate in the care of this patient. All recommendations and orders are per Dr. Hyde.
--- NOTE | 2023-09-16 13:53 | PC.NURSE ---
2290 Contacted Jose Nunez and Dr Hyde in cardiology. informed practitioners that pt hr is currently in the mid 50's (expected result from medications) and pt blood pressure is currently 72/34 on automatic monitor in room and 80/50 manually. concern for further/worsening hypotension following administration of oral dose of amiodarone. Per Dr Hyde proceed with administration of amiodarone dose.
--- NOTE | 2023-09-16 18:00 | P.PN_ITS ---
Subjective *Date: 09/16/23 *Time: 18:00 Interval history: patient was seen and evaluated at the bedside. denies chest pain, shortness of breath, nausea, vomiting, abdominal pain. Patient does not have any complaints at this time. feels better overall Exam Data for Last 24 hours Vital signs and Labs for Last 24 Hours: Temp Pulse Resp BP Pulse Ox O2 Del Method O2 Flow Rate 98.0 F 53 L 20 86/40 L 91 L Nasal Cannula 3 09/16/23 16:00 09/16/23 16:05 09/16/23 16:00 09/16/23 16:00 09/16/23 16:37 09/16/23 16:37 09/16/23 16:37 Laboratory Results - last 24 hr 09/16/23 06:20: WBC 9.7, RBC 2.74 L, Hgb 7.6 L, Hct 24.1 L, MCV 88.0, MCH 27.7, MCHC 31.5 L, RDW 16.9, Plt Count 440 H, MPV 8.8, Neut % (Auto) 73.1, Lymph % (Auto) 20.7, [place] % (Auto) 3.9, Eos % (Auto) 2.2, Baso % (Auto) 0.2, Neut # (Auto) 7.1, Lymph # (Auto) 2.0, [place] # (Auto) 0.4, Eos # (Auto) 0.2, Baso # (Auto) 0.0, Sodium 137, Potassium 4.2, Chloride 104, Carbon Dioxide 28, Anion Gap 9.2, BUN 10, Creatinine 0.90, Estimated Creat Clear 49, Estimated GFR 61, Est GFR ( Amer) 74, Glucose 105 H, Calcium 8.5, Triglycerides 108, Cholesterol 92 L, LDL Cholesterol Direct 54.81 L, VLDL Cholesterol 22, HDL Cholesterol 18 L, Cholesterol/HDL Ratio 5.1 H, TSH 0.29 L D, Free T4 1.33 I & O for Last 24 hours: Intake & Output 09/13/23 09/14/23 09/15/23 09/16/23 23:59 23:59 23:59 23:59 Intake Total 1239 / 1479 960 / 960 Output Total 0 / 0 0 / 0 Balance 1239 / 1479 960 / 960 Weight 68.039 kg 66.338 kg 64.3 kg Constitutional Constitutional: no acute distress *Routine HEENT Exam Head: Present normocephalic Eye: Present EOMI and PERRL ENT: Present mucous membranes moist *Routine Neck Exam Neck: Present supple; Absent lymphadenopathy *Routine Respiratory Exam Respiratory: Present CTA bilaterally *Routine Cardiovascular Exam Cardiovascular: Present RRR Comments: bradycardic *Routine Abdominal Exam Abdominal: Present soft and normoactive bowel sounds; Absent tenderness *Routine Extremities Exam Extremities: Absent cyanosis, clubbing or edema *Routine Skin Exam Skin: Present warm; Absent rash *Routine Neurological Exam Neurological: Present alert and oriented X3 Assessment and Plan *Assessment and plan (1) Ventricular tachycardia: Status: Acute Category: Medical Code(s): I47.20 - Ventricular tachycardia, unspecified (2) Heart failure with reduced ejection fraction: Status: Acute Category: Medical Code(s): I50.20 - Unspecified systolic (congestive) heart failure (3) Paroxysmal atrial fibrillation: Status: Acute Category: Medical Code(s): I48.0 - Paroxysmal atrial fibrillation (4) HLD (hyperlipidemia): Status: Acute Qualifiers: Hyperlipidemia type: unspecified Qualified Code(s): E78.5 - Hyperlipidemia, unspecified Category: Medical Code(s): E78.5 - Hyperlipidemia, unspecified Plan 78-year-old female with history of hyperlipidemia, hypertension, CHF, CAD [place] with life vest in place presenting with V. tach. Patient was discharged home today with had LifeVest placed. Patient called EMS because vest was alarming. On arrival monomorphic VTach confirmed on monitor. IV bolus of amiodarone given with subsequently continuous infusion. Findings discussed with ER. Agreed for readmission. Improved rate control this morning. Cardiology consulted. Problems addressed as follows: -Sustained V. Tach - HFrEF - Bradycardic - plan for AICD/Defibrillator placement tomorrow per cardiology transition to PO amiodarone 400mg BID cardiology consulted, discussed case, continue amiodarone. Evaluate for AICD julian cement in the coming days. Holding anticoagulation -Recent subacute STEMI and coronary stenting /HFrEF with EF 30% this admission Continue aspirin 81 mg daily and Plavix 75 mg daily Holding Entresto and jardiance given hypotension Continue Lasix 20 mg daily orally unless blood pressure begins to drop Hx Paroxysmal atrial fibrillation: holding eliquis in setting of planned AICD placement Hyperlipidemia: Continue statin therapy - Hx of current hospitalization for sepsis and hypoxic respiratory failure was on levaquin at home. switched to cefepime to avoid QT interation, completing 7d of therapy today Full code likely dc tomorrow if ok with cardiology after AICD placement
[2023-09-16] MEDS: PANTOPRAZOLE 40MG TABLET 40 MG PO (21:16)
[2023-09-16] MEDS: ATORVASTATIN 40MG TABLET 40 MG PO (21:18)
[2023-09-17] VITALS (33 sets, daily range): BP systolic 87–129; BP diastolic 40–58; PULSE 50–70; RESP 12–21; TEMP 36.6–37; O2SAT 90–95; BMI 23.6
[2023-09-17] MEDS: FLUTICASONE/SALMETEROL 500/50MCG DISKUS 1 PUFF IH ×2 (06:19→18:07)
[2023-09-17] MEDS: AMIODARONE 200MG TABLET 400 MG PO ×3 (08:41→20:10)
[2023-09-17] MEDS: CLOPIDOGREL 75MG TAB 75 MG PO (08:41)
[2023-09-17] MEDS: SPIRONOLACTONE 25MG TABLET 12.5 MG PO (08:42)
[2023-09-17] MEDS: ASPIRIN EC 81MG TABLET 81 MG PO (08:42)
[2023-09-17] MEDS: FUROSEMIDE 20MG TABLET 20 MG PO (08:42)
[2023-09-17] MEDS: RANOLAZINE 500MG ER TABLET 500 MG PO ×2 (08:42→20:10)
[2023-09-17] MEDS: EMPAGLIFLOZIN 10MG TABLET 10 MG PO (08:42)
[2023-09-17 09:11] LABS: Basophils % 0.3 % (0.1-2.0); Eosinophils # 0.1 K/mm3 (0.0-0.4); Eosinophils % 1.4 % (0.1-12.0); Hematocrit 25.3 % (37.0-47.0); Lymphocytes % 20.9 % (10-50); Mean Corpuscular HGB Conc 31.5 g/dL (31.8-35.4); Mean Corpuscular Hemoglobin 27.7 pg (27.0-31.2); Mean Platelet Volume 8.8 fl (7.4-10.4); Monocytes # 0.4 K/mm3 (0.1-1.0); Monocytes % 4.1 % (1.7-9.3); Neutrophils # 6.9 K/mm3 (1.8-7.8); Neutrophils % 73.3 % (37.0-80.0); Platelet Count 476 K/mm3 (142-424); Red Blood Count 2.88 M/mm3 (4.20-5.40); Red Cell Distribution Width 17.2 % (11.5-17.5); White Blood Count 9.4 K/mm3 (4.8-10.8)
--- NOTE | 2023-09-17 09:11 | EXP.CARD.PN ---
Subjective Subjective Date: 09/17/23 Time: 08:50 Principal diagnosis: v-tach Interval history: This is a 78-year-old white female presented to the emergency department because she could not get her LifeVest to stop alarming. The patient was found to be in sustained ventricular tachycardia. She was started on amiodarone drip with suppression of the ventricular ectopy. She has been converted over to oral amiodarone and is tolerating this well. No ventricular ectopy noted overnight. Her Entresto and metoprolol have been held due to hypotension. This morning she denies any chest pain or pressure. She denies any shortness of breath or edema. She denies any fever, chills, nausea, vomiting, diarrhea, PND or orthopnea. Exam Data for Last 24 hours Vital signs and Labs for Last 24 Hours: Temp Pulse Resp BP Pulse Ox O2 Del Method O2 Flow Rate 98.0 F 57 L 16 87/43 L 91 L Nasal Cannula 3 09/17/23 07:32 09/17/23 08:00 09/17/23 08:00 09/17/23 08:00 09/17/23 08:00 09/17/23 09:00 09/17/23 09:00 Laboratory Results - last 24 hr 09/17/23 08:54: Crossmatch (AHG) See Detail I & O for Last 24 hours: Intake & Output 09/14/23 09/15/23 09/16/23 09/17/23 23:59 23:59 23:59 23:59 Intake Total 1239 / 1479 1740 / 1740 0 / 0 Output Total 0 / 0 0 / 0 Balance 1239 / 1479 1740 / 1740 0 / 0 Weight 150 lb 146 lb 4 oz 141 lb 12.116 oz 142 lb Narrative: Telemetry strip shows sinus rhythm with a rate of 53 bpm. Constitutional Constitutional: no acute distress and average body habitus *Routine HEENT Exam Head: Present normocephalic and atraumatic ENT: Present mucous membranes moist *Routine Neck Exam Neck: Present supple, full ROM and normal carotid upstroke; Absent JVD, carotid bruit or lymphadenopathy *Routine Respiratory Exam Respiratory: Present CTA bilaterally, normal respiratory effort, able to speak in complete sentences and symmetric chest movement *Routine Cardiovascular Exam Cardiovascular: Present RRR, Normal S1 and Normal S2; Absent murmur or gallop *Routine Abdominal Exam Abdominal: Present soft and normoactive bowel sounds; Absent tenderness, distended or organomegaly *Routine Extremities Exam Extremities: Present full ROM, pulses intact and normal capillary refill; Absent cyanosis, clubbing or edema *Routine Skin Exam Skin: Present intact and warm; Absent erythema *Routine Neurological Exam Neurological: Present alert, oriented X3 and CN II-XII intact; Absent sensory deficit or motor deficit Routine Psychiatric Exam Psychiatric: Present normal affect Progress Note: A&P Assessment and plan (1) Ventricular tachycardia: Status: Acute (2) Heart failure with reduced ejection fraction: Status: Acute (3) Paroxysmal atrial fibrillation: Status: Acute (4) HLD (hyperlipidemia): Status: Acute (5) Chronic respiratory failure with hypoxia: Status: Acute (6) Ischemic cardiomyopathy: Status: Acute (7) Coronary artery disease: Status: Acute (8) Pulmonary edema: Status: Acute Assessment and Plan Assessment and Plan for All Diagnoses:: Plan: 1. The patient was admitted to the hospital after her LifeVest would not stop alarming. She was found to be in sustained ventricular tachycardia. The patient was started on amiodarone drip which has since been converted over to oral amiodarone. Her amiodarone drip has been stopped and she remains on amiodarone tolerating this well. Her ventricular ectopy has been suppressed and she has had no ventricular tachycardia overnight. 2. The patient is currently n.p.o. in preparation for AICD placement secondary to her severe LV dysfunction and ventricular tachycardia. The patient has been educated on the risk and benefits of proceeding with AICD placement. The patient verbalizes understanding and is agreeable in proceeding with the procedure. 3. The patient is anemic with a hemoglobin of 8.0. Will transfuse her with 2 units of packed red blood cells and still proceed with AICD placement once she has been transfused. 4. Her Eliquis remains on hold in preparation for AICD placement today. 5. Coronary artery disease is present. She denies any chest pain or pressure. No plans for invasive left cardiac catheterization at this time. 6. Her blood pressure is still on the low side. She is tolerating this well. Continue to hold metoprolol and Entresto at this time. 7. Her LDL goal is less than 55. Her LDL is 54. She is on a statin. 8. Continue Lasix, spironolactone and Jardiance for congestive heart failure. 9. The patient does have a history of paroxysmal atrial fibrillation. She is currently in sinus rhythm. On amiodarone. 10. Further recommendations will be made pending the patient's response to treatment. Thank you for the opportunity to help participate in the care of this patient. All recommendations and orders are per Dr. Hyde.
[2023-09-17 09:25] LABS: Chloride 102 mmol/L (98-107); Potassium 4.3 mmoL/L (3.5-5.1); Sodium 137 mmol/L (136-145)
[2023-09-17 09:28] LABS: Anion Gap 9.3 mEq/L (5-15); Blood Urea Nitrogen 10 mg/dl (7-17); Carbon Dioxide 30 mmol/L (22.0-30.0); Creatinine Clearance Estimated 49 mL/min (50-200); Estimated Glomerular Filt Rate 61 ml/min (>60); GFR (African American) 74 ML/MIN (>60)
[2023-09-17 09:29] LABS: Calcium 8.6 mg/dl (8.4-10.2); Glucose 99 mg/dl (74-100)
--- NOTE | 2023-09-17 11:37 | PC.NURSE ---
SHUKRI Rebolledo at bedside speaking with patient. Michael Conner at bedside to speak with patient.
--- NOTE | 2023-09-17 12:02 | PC.NURSE ---
Spoke with Beverly RN in Marketing Proposal Coordinator stated to hold pt's Plavix tomorrow, procedure will now be tomorrow. pt is able to eat at this time and will be npo at midnight.
--- NOTE | 2023-09-17 13:10 | PC.NURSE ---
notified by Angelina Tyson that lab called stating blood was ready. Angelina Tyson to go and obtain blood.
[2023-09-17] MEDS: 0.9 % SODIUM CHLORIDE 250 ML 25 ML IV (14:03)
--- NOTE | 2023-09-17 17:09 | EXP.PN ---
Subjective *Date: 09/17/23 *Time: 17:09 Interval history: patient was seen and evaluated at the bedside. No reported acute events overnight, denies chest pain, shortness of breath, nausea, vomiting, abdominal pain. Exam Data for Last 24 hours Vital signs and Labs for Last 24 Hours: Temp Pulse Resp BP Pulse Ox O2 Del Method O2 Flow Rate 98.1 F 60 18 100/52 L 94 L Nasal Cannula 3 09/17/23 16:40 09/17/23 16:40 09/17/23 16:40 09/17/23 16:40 09/17/23 16:40 09/17/23 16:00 09/17/23 16:00 Laboratory Results - last 24 hr 09/17/23 08:54: WBC 9.4, RBC 2.88 L, Hgb 8.0 L, Hct 25.3 L, MCV 88.0, MCH 27.7, MCHC 31.5 L, RDW 17.2, Plt Count 476 H, MPV 8.8, Neut % (Auto) 73.3, Lymph % (Auto) 20.9, [place] % (Auto) 4.1, Eos % (Auto) 1.4, Baso % (Auto) 0.3, Neut # (Auto) 6.9, Lymph # (Auto) 2.0, [place] # (Auto) 0.4, Eos # (Auto) 0.1, Baso # (Auto) 0.0, Sodium 137, Potassium 4.3, Chloride 102, Carbon Dioxide 30, Anion Gap 9.3, BUN 10, Creatinine 0.90, Estimated Creat Clear 49, Estimated GFR 61, Est GFR ( Amer) 74, Glucose 99, Calcium 8.6, Blood Type A Positive, Antibody Screen Negative, Crossmatch (AHG) See Detail 09/17/23 : Blood Type Confirm A Positive I & O for Last 24 hours: Intake & Output 09/14/23 09/15/23 09/16/23 09/17/23 23:59 23:59 23:59 23:59 Intake Total 1239 / 1479 1740 / 1740 831 / 831 Output Total 0 / 0 0 / 0 0 / 0 Balance 1239 / 1479 1740 / 1740 831 / 831 Weight 68.039 kg 66.338 kg 64.3 kg 64.41 kg Constitutional Constitutional: no acute distress *Routine HEENT Exam Head: Present normocephalic Eye: Present EOMI and PERRL ENT: Present mucous membranes moist *Routine Neck Exam Neck: Present supple; Absent lymphadenopathy *Routine Respiratory Exam Respiratory: Present CTA bilaterally *Routine Cardiovascular Exam Cardiovascular: Present RRR Comments: bradycardic *Routine Abdominal Exam Abdominal: Present soft and normoactive bowel sounds; Absent tenderness *Routine Extremities Exam Extremities: Absent cyanosis, clubbing or edema *Routine Skin Exam Skin: Present warm; Absent rash *Routine Neurological Exam Neurological: Present alert and oriented X3 Assessment and Plan *Assessment and plan (1) Ventricular tachycardia: Status: Acute Category: Medical Code(s): I47.20 - Ventricular tachycardia, unspecified (2) Heart failure with reduced ejection fraction: Status: Acute Category: Medical Code(s): I50.20 - Unspecified systolic (congestive) heart failure (3) Paroxysmal atrial fibrillation: Status: Acute Category: Medical Code(s): I48.0 - Paroxysmal atrial fibrillation (4) HLD (hyperlipidemia): Status: Acute Qualifiers: Hyperlipidemia type: unspecified Qualified Code(s): E78.5 - Hyperlipidemia, unspecified Category: Medical Code(s): E78.5 - Hyperlipidemia, unspecified Plan 78-year-old female with history of hyperlipidemia, hypertension, CHF, CAD [place] with life vest in place presenting with V. tach. Patient was discharged home today with had LifeVest placed. Patient called EMS because vest was alarming. On arrival monomorphic VTach confirmed on monitor. IV bolus of amiodarone given with subsequently continuous infusion. Findings discussed with ER. Agreed for readmission. Improved rate control this morning. Cardiology consulted. Problems addressed as follows: -Sustained V. Tach - HFrEF - Bradycardic - plan for AICD/Defibrillator placement per cardiology transition to PO amiodarone 400mg BID cardiology consulted, discussed case, continue amiodarone. Evaluate for AICD placement in the coming days. Holding anticoagulation -Recent subacute STEMI and coronary stenting /HFrEF with EF 30% this admission Continue aspirin 81 mg daily and Plavix 75 mg daily Holding Entresto and jardiance given hypotension Continue Lasix 20 mg daily orally Hx Paroxysmal atrial fibrillation: holding eliquis in setting of planned AICD placement Hyperlipidemia: Continue statin therapy - Hx of current hospitalization for sepsis and hypoxic respiratory failure was on levaquin at home. switched to cefepime to avoid QT interation, completing 7d of therapy today Full code likely dc tomorrow if ok with cardiology after AICD placement
--- NOTE | 2023-09-17 17:18 | PC.NURSE ---
pt alert and oriented this shift. 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 pt had order for 2 units of PRBC this shift. 1st unit completed, 2nd unit infusing. lung sounds cta. pt on 3LNC. pt has remained sinus katia on the radiographer cardiac catheterization. abdomen soft, non tender. pt up to bathroom with standby assistance. pt has tolerated both lunch and supper, pt will be npo after midnight. pt is to have her Plavix held tomorrow for procedure. call light w/i reach.
--- NOTE | 2023-09-17 18:31 | PC.NURSE ---
Second unit of PRBC's completed at 1800. Pt tolerated both units with no complaints. She ambulated to the bathroom and had a large BM. She remains on 3L NC at this time. She is currently sitting up in bed watching tv. Bed is locked and in the lowest position, call light is within reach.
[2023-09-17] MEDS: ATORVASTATIN 40MG TABLET 40 MG PO (20:09)
[2023-09-17] MEDS: PANTOPRAZOLE 40MG TABLET 40 MG PO (20:09)
[2023-09-17 22:26] LABS: Hemoglobin 11.3 g/dL (12.2-16.2)
[2023-09-18] VITALS (26 sets, daily range): BP systolic 94–118; BP diastolic 46–79; PULSE 58–71; RESP 12–22; TEMP 36.2–36.9; O2SAT 90–99; BMI 23.8
--- NOTE | 2023-09-18 | IR_ITS ---
APPROVED REPORT Patient Location: Inpatient [facility] Insoles: MALGORZATA Limon RT (R) PROCEDURES 1. Pocket formation for biventricular pacemaker generator with cardiac resynchronization/defibrillator therapy. 2. Placement of atrial sensing and pacing lead into the right atrial appendage. 3. Placement of a right ventricular sensing, pacing and shocking lead in the right ventricular apex. 4. Placement of left ventricular sensing pacing lead via the coronary sinus. 5. Permanent cardiac resynchronization therapy with ICD implantation/biventricular pacemaker. INDICATION Systolic Congestive Heart Failure, ejection < 25%, Complete Heart Block, AV Block, Ventricular Tachycardia Informed consent was obtained prior to the procedure. COMPLICATIONS None Estimated Blood Loss: Less than 10 mls TECHNIQUE 1% Lidocaine with epinephrine used to anesthetized the left anterior aspect of the chest. Scalpel was used to make the initial cutaneous incision while electrocautery was used to dissect down tinto the fascia. The fascia was lifted off the pectoralis muscle and digitally manipulated creating a pocket for the defibrillator. The patient was then placed in Trendelenburg position and the subclavian vein was accessed 3 times via the Selinger technique. A 8 American sheath was placed under fluoroscopic guidance into the subclavian vein. The dilator was removed from the sheath. Using fluoroscopic guidance, the ventricular lead was placed into the right ventricular apex, screwed and secured into place. Electronic interrogation proved acceptable thresholds and voltage within the lead. Using 3-0 silk, the ventricular lead was then secured into place and sheath peeled away. Following this, a 9.5 American sheath and dilator was then placed over one of the wires while keeping the other wire in place within the subclavian vein. The dilator was removed from the sheath. Using fluoroscopic guidance, contrast was used to visualize the coronary sinus, the left ventricular lead was placed into the coronary sinus. Electronic interrogation proved acceptable thresholds and voltage within the lead. Using 3-0 silk, the left ventricular lead was then secured into place and sheath peeled away.An additional 6 American fresh sheath and dilator was placed over the existing wire. Using fluoroscopic guidance, the atrial lead was then placed into the right atrial appendage and screwed and secured in place. Electrical interrogation demonstrated acceptable thresholds and voltage number. The atrial lead was then secured into place using 3-0 silk and sheath peeled away. 1 gram of Ancef was used to flush the pocket. All 3 leads were connected to generator and tested via computer. The defibrillator then secured to the fascia. Monocryl was used to close the subcutaneous layers while jose were used to close the cutaneous layer. A pressure dressing was placed and the patient was transferred to the postop holding area in stable condition for postoperative care. INTERROGATION Generator Model number: Wilmot HF, [id number] Generator Serial number: [id number] Atrial lead model number: TENDRIL STS, 2088TC/46 Atrial lead serial number: [id number] P-wave: 4.8 mV Impedence: 530 ohms Threshold: 0.5V@0.5ms Right Ventricular lead model number: OPTISURE, [id number]/58 Right Ventricular lead serial number: [id number] R-wave: 11.6mV Impedence: 730 ohms Threshold: 0.75V@0.5ms Left Ventricular lead model number: QUARTET, 1458Q/86 Left Ventricular lead serial number: [id number] Impedence: 1350 ohms Threshold: 1.25V@0.5ms Pacing Parameters: Mode: DDDR Base/Max Track:60 ppm / 130 ppm VT-1: 150 bpm, Monitor VT-2: 171 bpm, ATP X2, 30 J, 40 J, 40 J X2 VF: 214 bpm, ATP X1, 36 J, 40 J, 40 J X4 No diaphragmatic stimulation at 10 volts. IMPRESSION 1. Successful Pocket formation for biventricular pacemaker generator with cardiac resynchronization/defibrillator therapy. 2. Successful placement of right atrial sensing and pacing lead into the right atrial appendage. 3. Successful placement of a right ventricular sensing, pacing and shocking lead in the right ventricular apex. 4. Successful placement of left ventricular sensing pacing lead via the coronary sinus. 5. Successful permanent cardiac resynchronization plus AICD generator device. PLAN 1. post op wound care, follow up office visit Electronically signed by : Iker Bolton MD 09/30/2023 14:33:44
[2023-09-18] MEDS: FLUTICASONE/SALMETEROL 500/50MCG DISKUS 1 PUFF IH ×2 (05:19→18:07)
--- NOTE | 2023-09-18 05:21 | PC.NURSE ---
Patient has had a good night. Has been able to rest through the shift. Did get a bath last night in preparation for ACID placement. patient has been NPO since midnight. No other issues noted
[2023-09-18] MEDS: SPIRONOLACTONE 25MG TABLET 12.5 MG PO (08:04)
[2023-09-18] MEDS: ASPIRIN EC 81MG TABLET 81 MG PO (08:04)
[2023-09-18] MEDS: AMIODARONE 200MG TABLET 400 MG PO ×3 (08:04→20:26)
[2023-09-18] MEDS: EMPAGLIFLOZIN 10MG TABLET 10 MG PO (08:05)
[2023-09-18] MEDS: RANOLAZINE 500MG ER TABLET 500 MG PO ×2 (08:05→20:26)
[2023-09-18] MEDS: FUROSEMIDE 20MG TABLET 20 MG PO (08:05)
--- NOTE | 2023-09-18 08:27 | PC.NURSE ---
PT UNABLE TO PRODUCE SPUTUM AT THIS TIME; SPECIMEN CUP AT BEDSIDE
[2023-09-18 09:13] LABS: Basophils % 0.2 % (0.1-2.0); Eosinophils # 0.1 K/mm3 (0.0-0.4); Eosinophils % 1.2 % (0.1-12.0); Hematocrit 34.9 % (37.0-47.0); Hemoglobin 11.5 g/dL (12.2-16.2); Lymphocytes # 1.7 K/mm3 (0.7-4.5); Lymphocytes % 16.8 % (10-50); Mean Corpuscular HGB Conc 32.8 g/dL (31.8-35.4); Mean Corpuscular Hemoglobin 28.2 pg (27.0-31.2); Mean Corpuscular Volume 85.9 fl (81-99); Mean Platelet Volume 9.1 fl (7.4-10.4); Monocytes # 0.4 K/mm3 (0.1-1.0); Monocytes % 4.1 % (1.7-9.3); Neutrophils % 77.7 % (37.0-80.0); Platelet Count 394 K/mm3 (142-424); Red Blood Count 4.07 M/mm3 (4.20-5.40); White Blood Count 10.2 K/mm3 (4.8-10.8)
[2023-09-18 09:15] LABS: Chloride 101 mmol/L (98-107); Sodium 136 mmol/L (136-145)
[2023-09-18 09:16] LABS: Potassium 3.7 mmoL/L (3.5-5.1)
[2023-09-18 09:18] LABS: Blood Urea Nitrogen 10 mg/dl (7-17); Creatinine Clearance Estimated 49 mL/min (50-200); Estimated Glomerular Filt Rate 61 ml/min (>60); GFR (African American) 74 ML/MIN (>60)
[2023-09-18 09:19] LABS: Anion Gap 8.7 mEq/L (5-15); Calcium 8.5 mg/dl (8.4-10.2); Carbon Dioxide 30 mmol/L (22.0-30.0); Glucose 105 mg/dl (74-100)
--- NOTE | 2023-09-18 09:25 | P.PN_ITS ---
Subjective Subjective Date: 09/18/23 Time: 09:25 Principal diagnosis: v-tach Interval history: No events overnight. Denies any CP, Palps, SOA this morning. Received blood transfusion - last labs reveal Hgb up to 11.3 No further VT noted on telemetry. On schedule for ICD today. Exam Data for Last 24 hours Vital signs and Labs for Last 24 Hours: Temp Pulse Resp BP Pulse Ox O2 Del Method O2 Flow Rate 98.4 F 60 18 102/54 L 90 L Room Air 3 09/18/23 08:00 09/18/23 08:00 09/18/23 08:00 09/18/23 08:00 09/18/23 08:00 09/18/23 09:12 09/18/23 08:00 Laboratory Results - last 24 hr 09/17/23 08:54: Sodium 137, Potassium 4.3, Chloride 102, Carbon Dioxide 30, Anion Gap 9.3, BUN 10, Creatinine 0.90, Estimated Creat Clear 49, Estimated GFR 61, Est GFR ( Amer) 74, Glucose 99, Calcium 8.6, Blood Type A Positive, Antibody Screen Negative, Crossmatch (AHG) See Detail 09/17/23 21:50: Hgb 11.3 L D, Hct 34.0 L 09/17/23 : Blood Type Confirm A Positive 09/18/23 08:53: WBC 10.2, RBC 4.07 L D, Hgb 11.5 L, Hct 34.9 L, MCV 85.9, MCH 28.2, MCHC 32.8, RDW 17.0, Plt Count 394, MPV 9.1, Neut % (Auto) 77.7, Lymph % (Auto) 16.8, [place] % (Auto) 4.1, Eos % (Auto) 1.2, Baso % (Auto) 0.2, Neut # (Auto) 8.0 H, Lymph # (Auto) 1.7, [place] # (Auto) 0.4, Eos # (Auto) 0.1, Baso # (Auto) 0.0 I & O for Last 24 hours: Intake & Output 09/15/23 09/16/23 09/17/23 09/18/23 23:59 23:59 23:59 23:59 Intake Total 1239 / 1479 1740 / 1740 1555 / 1555 0 / 0 Output Total 0 / 0 0 / 0 0 / 0 0 / 0 Balance 1239 / 1479 1740 / 1740 1555 / 1555 0 / 0 Weight 146 lb 4 oz 141 lb 12.116 oz 142 lb 143 lb 4.8 oz Constitutional Constitutional: no acute distress *Routine Respiratory Exam Respiratory: Present normal respiratory effort; Absent wheezes or crackles *Routine Cardiovascular Exam Cardiovascular: Present RRR; Absent murmur *Routine Extremities Exam Extremities: Absent edema *Routine Skin Exam Skin: Present intact and warm *Routine Neurological Exam Neurological: Present alert and oriented X3 Routine Psychiatric Exam Psychiatric: Present cooperative Progress Note: A&P Assessment and plan (1) Ventricular tachycardia: Status: Acute (2) Heart failure with reduced ejection fraction: Status: Acute (3) Paroxysmal atrial fibrillation: Status: Acute (4) HLD (hyperlipidemia): Status: Acute Assessment and Plan Assessment and Plan for All Diagnoses:: Recurrent Sustained VT - new dx this admission per LifeVest alarm - subacute STEMI 09/03/23 - resolved with IV then PO Amio this admission - BB on hold due to hypotension - awaiting ICD placement today MV-CAD s/p CABG 1988 and s/p AW-STEMI with PCI 08/2023 - see cath report dated 08/31/23 for details - currently symptom free - cont ASA, Plavix, Statin - BB on hold due to hypotension HFrEF, Ischemic Cardiomyopathy - new dx 08/31/23 with EF 30% post AW-STEMI - pt is euvolemic here but has been hypotensive so ARNI/BB on hold - cont Aldactone and SLGT-2 Anemia s/p 2 unit transfusion here - workup per hospitalist - pt denies changes to BM PAF - SR here - BB on hold due to hypotension - OAC on hold due to pending ICD
--- NOTE | 2023-09-18 10:19 | HMH.PHAINT1 ---
Pharmacy Intervention Comments: Verified home meds with patient and at bedside and with external pharmacy list
--- NOTE | 2023-09-18 14:01 | P.PNANES_ITS ---
[facility] Disclaimer: The information contained in this section may have been updated after the patient was seen, as this information can be updated by other users. Medical History (Updated 09/18/23 @ 00:00 by Sapna Verma) Acute and chronic respiratory failure with hypoxia Chronic respiratory failure with hypoxia Colon cancer Coronary artery disease Dementia Heart failure with reduced ejection fraction HLD (hyperlipidemia) Ischemic cardiomyopathy Myocardial infarction Paroxysmal atrial fibrillation Pleural effusion, left Pulmonary edema Ventricular tachycardia Surgical History H/O heart artery stent History of colon resection Hx of CABG Hx of cholecystectomy Status post carotid surgery Social History Smoking Status: Never smoker alcohol intake: never substance use type: denies use current occupational status: retired Travel in the last 8 weeks: None [facility] Anesthesia Checklist Patient Identification Patient Identification: Arm Band Structural Data Admitted From: Inpatient Planned Operative Procedure/s: Biventricular AICD Consent for Planned Operative Procedure(s) Verified: Yes Verified Documents: Surgical Consent and History and Physical NPO Status Verified Time NPO: 00:00 Additional verifications Anesthesia Reactions: No Airway Assessment Mallampati Score:: Class II C-Spine Mobility Assessed: Yes TMJ Mobility Assessed: Yes Dentition: Edentulous Neurological Assessment Level of Consciousness: Awake and Alert Anesthesia Plan Anesthesia Risk discussed: Yes Anesthesia Plan: Verified ASA Class: IV Anesthesia Type: MAC
--- NOTE | 2023-09-18 16:35 | EXP.PN ---
Subjective *Date: 09/18/23 *Time: 16:35 Interval history: patient was seen and evaluated at the bedside. discussed with at bedside, No reported acute events overnight, denies chest pain, shortness of breath, nausea, vomiting, abdominal pain. Exam Data for Last 24 hours Vital signs and Labs for Last 24 Hours: Temp Pulse Resp BP Pulse Ox O2 Del Method O2 Flow Rate 98.2 F 58 L 18 102/57 L 93 L Nasal Cannula 3 09/18/23 11:26 09/18/23 14:00 09/18/23 14:00 09/18/23 14:00 09/18/23 15:55 09/18/23 15:55 09/18/23 15:55 Laboratory Results - last 24 hr 09/17/23 08:54: Crossmatch (AHG) See Detail 09/17/23 21:50: Hgb 11.3 L D, Hct 34.0 L 09/18/23 08:53: WBC 10.2, RBC 4.07 L D, Hgb 11.5 L, Hct 34.9 L, MCV 85.9, MCH 28.2, MCHC 32.8, RDW 17.0, Plt Count 394, MPV 9.1, Neut % (Auto) 77.7, Lymph % (Auto) 16.8, [place] % (Auto) 4.1, Eos % (Auto) 1.2, Baso % (Auto) 0.2, Neut # (Auto) 8.0 H, Lymph # (Auto) 1.7, [place] # (Auto) 0.4, Eos # (Auto) 0.1, Baso # (Auto) 0.0, Sodium 136, Potassium 3.7, Chloride 101, Carbon Dioxide 30, Anion Gap 8.7, BUN 10, Creatinine 0.90, Estimated Creat Clear 49, Estimated GFR 61, Est GFR ( Amer) 74, Glucose 105 H, Calcium 8.5 I & O for Last 24 hours: Intake & Output 09/15/23 09/16/23 09/17/23 09/18/23 23:59 23:59 23:59 23:59 Intake Total 1239 / 1479 1740 / 1740 1555 / 1555 50 / 50 Output Total 0 / 0 0 / 0 0 / 0 0 / 0 Balance 1239 / 1479 1740 / 1740 1555 / 1555 50 / 50 Weight 66.338 kg 64.3 kg 64.41 kg 65 kg Constitutional Constitutional: no acute distress *Routine HEENT Exam Head: Present normocephalic Eye: Present EOMI and PERRL ENT: Present mucous membranes moist *Routine Neck Exam Neck: Present supple; Absent lymphadenopathy *Routine Respiratory Exam Respiratory: Present CTA bilaterally *Routine Cardiovascular Exam Cardiovascular: Present RRR Comments: bradycardic *Routine Abdominal Exam Abdominal: Present soft and normoactive bowel sounds; Absent tenderness *Routine Extremities Exam Extremities: Absent cyanosis, clubbing or edema *Routine Skin Exam Skin: Present warm; Absent rash *Routine Neurological Exam Neurological: Present alert and oriented X3 Assessment and Plan *Assessment and plan (1) Ventricular tachycardia: Status: Acute Category: Medical Code(s): I47.20 - Ventricular tachycardia, unspecified (2) Heart failure with reduced ejection fraction: Status: Acute Category: Medical Code(s): I50.20 - Unspecified systolic (congestive) heart failure (3) Paroxysmal atrial fibrillation: Status: Acute Category: Medical Code(s): I48.0 - Paroxysmal atrial fibrillation (4) HLD (hyperlipidemia): Status: Acute Qualifiers: Hyperlipidemia type: unspecified Qualified Code(s): E78.5 - Hyperlipidemia, unspecified Category: Medical Code(s): E78.5 - Hyperlipidemia, unspecified Plan 78-year-old female with history of hyperlipidemia, hypertension, CHF, CAD [place] with life vest in place presenting with V. tach. Patient was discharged home today with had LifeVest placed. Patient called EMS because vest was alarming. On arrival monomorphic VTach confirmed on monitor. IV bolus of amiodarone given with subsequently continuous infusion. Findings discussed with ER. Agreed for readmission. Improved rate control this morning. Cardiology consulted. Problems addressed as follows: -Sustained V. Tach - HFrEF - Bradycardic - plan for AICD/Defibrillator placement per cardiology transition to PO amiodarone 400mg BID cardiology consulted, discussed case, continue amiodarone. Evaluate for AICD placement in the coming days. Holding anticoagulation -Recent subacute STEMI and coronary stenting /HFrEF with EF 30% this admission Continue aspirin 81 mg daily and Plavix 75 mg daily Holding Entresto and jardiance given hypotension Continue Lasix 20 mg daily orally Hx Paroxysmal atrial fibrillation: holding eliquis in setting of planned AICD placement Hyperlipidemia: Continue statin therapy - Hx of current hospitalization for sepsis and hypoxic respiratory failure was on levaquin at home. switched to cefepime to avoid QT interation, completing 7d of therapy today Full code likely dc tomorrow if ok with cardiology after AICD placement, awaiting AICD placement
--- NOTE | 2023-09-18 16:49 | XR_ITS ---
PROCEDURE INFORMATION: Exam: XR Chest Exam date and time: 09/18/2023 5:17 PM Age: 78 years old Clinical indication: Device placement; Cardiac pacemaker placement or adjustment; Additional info: Confirm pacemaker/aid placement TECHNIQUE: Imaging protocol: Radiologic exam of the chest. Views: 1 view. COMPARISON: CR XR CHEST PORTABLE 09/14/2023 10:56 PM FINDINGS: Tubes, catheters and devices: There has been interval placement of triple lead cardiac pacemaker which appears to be in good position. Lungs: Increased hazy opacity throughout the aerated portion of the left mid to upper lung suggesting developing consolidation and/or atelectasis. Right lung remains largely clear. Pleural spaces: Stable moderate amount of pleural fluid in the left lower chest. No pneumothorax. Heart/Mediastinum: Unremarkable. No cardiomegaly. Bones/joints: Sternotomy wires remain in place. IMPRESSION: Increasing opacity in the left upper lung suggesting developing consolidation or atelectasis. Persistent moderate-sized left pleural fluid collection. No definite pneumothorax post pacemaker placement.
[2023-09-18] MEDS: IOPAMIDOL-370 (76%);100ML BOTTLE 30 ML IV (17:12)
--- NOTE | 2023-09-18 17:16 | P.PNANES_ITS ---
[facility] Anesthesia Record Part I Anesthesia Record I Intake, IV Amount: 200 Hydration: Adequate Estimated blood loss (mL): 50 Urine output (mL): 0 Blood Products used (#): none Blood Pressure: 97/59 SaO2: 90 Pulse Rate: 66 Airway Patency: Patent Respiratory Rate: 22 Temperature: 97.1 F Patient is:: Awake (Talking), Drowsy and Stable Stable to PACU at:: 16:57
[2023-09-18] MEDS: ATORVASTATIN 40MG TABLET 40 MG PO (20:26)
[2023-09-18] MEDS: PANTOPRAZOLE 40MG TABLET 40 MG PO (20:26)
[2023-09-19] VITALS: PULSE 67
[2023-09-19 04:00] VITALS: BP 103/54; PULSE 64; RESP 18; TEMP 36.8; O2SAT 93; BMI 24.2
--- NOTE | 2023-09-19 05:29 | PC.NURSE ---
Patient has had a great night. Has not had any pain or issue with her ACID site. Dressing remains intact. Patient is on 3L NC which is her baseline. No other issue note
[2023-09-19] MEDS: FLUTICASONE/SALMETEROL 500/50MCG DISKUS 1 PUFF IH (06:16)
[2023-09-19 08:00] VITALS: BP 105/67; PULSE 60; PULSE 70; RESP 19; TEMP 36.6; O2SAT 93; O2SAT 95
[2023-09-19] MEDS: FUROSEMIDE 20MG TABLET 20 MG PO (09:00)
[2023-09-19] MEDS: AMIODARONE 200MG TABLET 400 MG PO (09:00)
[2023-09-19] MEDS: SPIRONOLACTONE 25MG TABLET 12.5 MG PO (09:00)
[2023-09-19] MEDS: EMPAGLIFLOZIN 10MG TABLET 10 MG PO (09:00)
[2023-09-19] MEDS: RANOLAZINE 500MG ER TABLET 500 MG PO (09:00)
[2023-09-19] MEDS: ASPIRIN EC 81MG TABLET 81 MG PO (09:00)
--- NOTE | 2023-09-19 10:25 | EXP.CARD.PN ---
Subjective Subjective Date: 09/19/23 Time: 08:30 Principal diagnosis: v-tach Interval history: This is a 78-year-old female who presented to the emergency department because her LifeVest would not stop or alarming. The patient was found to have sustained ventricular tachycardia. She is status post AICD placement yesterday. She tolerated the procedure well. The patient will remain on amiodarone for suppression of her ventricular ectopy as well as her atrial fibrillation. This morning she denies any chest pain or pressure. She denies any shortness of breath or edema. She denies any fever, chills, nausea, vomiting, diarrhea, PND or orthopnea. Exam Data for Last 24 hours Vital signs and Labs for Last 24 Hours: Temp Pulse Resp BP Pulse Ox O2 Del Method O2 Flow Rate 97.9 F 70 19 105/67 L 93 L Nasal Cannula 3 09/19/23 08:00 09/19/23 08:00 09/19/23 08:00 09/19/23 08:00 09/19/23 08:00 09/19/23 08:00 09/19/23 06:50 I & O for Last 24 hours: Intake & Output 09/16/23 09/17/23 09/18/23 09/19/23 23:59 23:59 23:59 23:59 Intake Total 1740 / 1740 1555 / 1555 400 / 550 420 / 420 Output Total 0 / 0 0 / 0 300 / 300 0 / 0 Balance 1740 / 1740 1555 / 1555 100 / 250 420 / 420 Weight 141 lb 12.116 oz 142 lb 143 lb 4.8 oz 145 lb 7 oz Narrative: Telemetry strip is a pacing with a rate of 64 bpm. Constitutional Constitutional: no acute distress and average body habitus *Routine HEENT Exam Head: Present normocephalic and atraumatic ENT: Present mucous membranes moist *Routine Neck Exam Neck: Present supple, full ROM and normal carotid upstroke; Absent JVD, carotid bruit or lymphadenopathy *Routine Respiratory Exam Respiratory: Present CTA bilaterally, normal respiratory effort, able to speak in complete sentences and symmetric chest movement *Routine Cardiovascular Exam Cardiovascular: Present RRR, Normal S1 and Normal S2; Absent murmur or gallop *Routine Abdominal Exam Abdominal: Present soft and normoactive bowel sounds; Absent tenderness, distended or organomegaly *Routine Extremities Exam Extremities: Present full ROM, pulses intact and normal capillary refill; Absent cyanosis, clubbing or edema *Routine Skin Exam Skin: Present intact and warm; Absent erythema *Routine Neurological Exam Neurological: Present alert, oriented X3 and CN II-XII intact; Absent sensory deficit or motor deficit Routine Psychiatric Exam Psychiatric: Present normal affect Progress Note: A&P Assessment and plan (1) Ventricular tachycardia: Status: Acute (2) Heart failure with reduced ejection fraction: Status: Acute (3) Paroxysmal atrial fibrillation: Status: Acute (4) HLD (hyperlipidemia): Status: Acute (5) Coronary artery disease: Status: Acute (6) Pulmonary edema: Status: Acute (7) Ischemic cardiomyopathy: Status: Acute (8) AICD (automatic cardioverter/defibrillator) present: Status: Acute Assessment and Plan Assessment and Plan for All Diagnoses:: Plan: 1. The patient was admitted to the hospital for sustained ventricular tachycardia. The patient was started on an amiodarone drip and has since been converted over to oral amiodarone for suppression of ventricular tachycardia as well as atrial fibrillation. The patient has tolerated this well. Will decrease her amiodarone down to amiodarone 200 mg p.o. twice daily since she is status post AICD placement now. 2. As mentioned above the patient is status post AICD placement. She had sustained ventricular tachycardia in the setting of severe LV dysfunction so AICD was implanted. 3. No signs of infection are noted at the AICD site. No drainage or bleeding noted. 4. We will start her on Toprol-XL 12.5 mg p.o. daily as well for suppression of her ventricular tachycardia. She was previously on a beta-sultana so stopping her beta-sultana long-term could cause her to go back into ventricular tachycardia. 5. The patient does have a history of paroxysmal atrial fibrillation. She is currently in sinus rhythm. On amiodarone for suppression. Will restart her long-term anticoagulation with Eliquis today. 6. Coronary artery disease is present. She denies chest pain or pressure. No plans for invasive left cardiac catheterization. 7. Her blood pressure is on the low side. However she is asymptomatic with this. 8. Her LDL goal is less than 55. Her LDL is 54. She is on a statin. 9. Continue Lasix, spironolactone and Jardiance for HFrEF. 10. Continue to hold Entresto due to her blood pressure being on the lower side. Will try to restart her Entresto on an outpatient basis. 11. The patient will be on triple therapy with aspirin, Plavix and Eliquis. The patient does have fresh stents in place so she will remain on aspirin and Plavix for 30 days. After 30 days she can stop the aspirin and remain on Plavix and Eliquis at that time. 12. The patient is stable for discharge home today from a cardiac standpoint. The patient will need to follow-up in cardiology clinic next week. The patient will need to be discharged on the following cardiac medications: Amiodarone 200 mg p.o. twice daily, Eliquis 5 mg p.o. twice daily, aspirin 81 mg daily, Lipitor 40 mg nightly, Plavix 75 mg daily, Jardiance 10 mg daily, Lasix 20 mg daily, metoprolol 12.5 mg daily, Ranexa 500 mg p.o. twice daily and spironolactone 12.5 mg daily. Thank you for the opportunity to help participate in the care of this patient. All recommendations and orders are per Dr. Hyde.
[2023-09-19] MEDS: METOPROLOL SUCCINATE XL 25MG TABLET 12.5 MG PO (10:32)
[2023-09-19] MEDS: APIXABAN 5MG TABLET 5 MG PO (10:32)
[2023-09-19 12:00] VITALS: BP 119/60; PULSE 60; PULSE 65; RESP 18; TEMP 36.5; O2SAT 97
--- NOTE | 2023-09-19 12:42 | P.CONPHA_ITS ---
Pharmacy Intervention Comments: DISCHARGE MEDICATION COUNSELING PROVIDED. DISCUSSED STOPPING ENTRESTO AND STARTING AMIODARONE (FOR HEART RATE, TWICE DAILY, TAKE WITH FOOD, N/V/D, BLOATING, LOW BP POSSIBLE). PATIENT'S GRANDDAUGHTER ASKED ABOUT STOPPING THE PLAVIX, I CHECKED WITH DR JONES WHO STATED THAT CARDIOLOGY RECOMMENDED CONTINUI NG. NO FURTHER QUESTIONS AT THIS TIME.
--- NOTE | 2023-10-02 19:16 | EXP.DC.SUM ---
General Admission date:: 09/14/23 Discharge date: 09/19/23 HPI HPI HPI: This is a 78-year-old female with history of hyperlipidemia, hypertension, CHF, CAD [place] with life vest in place presenting with V. tach. Patient was discharged home today with had LifeVest placed. Patient called EMS because vest was alarming. EMS showed up and patient was in sustained V. tach. Patient normotensive, asymptomatic. She states she feels a vibrating going from my chest to my back. No other complaints at this time. Readmitted. Hospital Course Hospital Course Hospital Course: Patient was seen and evaluated at the bedside on the day of discharge. Patient is stable for discharge. Patient wishes to be discharged. All patient questions were answered and patient was given time to ask questions. Patient was discharged in stable condition. Patient understands that she can return to ER in case of any sudden changes in health. Total time spent on DC - 38 mins 78-year-old female with history of hyperlipidemia, hypertension, CHF, CAD [place] with life vest in place presenting with V. tach. Patient was discharged home today with had LifeVest placed. Patient called EMS because vest was alarming. On arrival monomorphic VTach confirmed on monitor. IV bolus of amiodarone given with subsequently continuous infusion. Findings discussed with ER. Agreed for readmission. Improved rate control this morning. Cardiology consulted. Problems addressed as follows: -Sustained V. Tach - HFrEF - Bradycardic - s/p AICD/Defibrillator placement per cardiology -Recent subacute STEMI and coronary stenting /HFrEF with EF 30% this admission Continue aspirin 81 mg daily and Plavix 75 mg daily Holding Entresto and jardiance given hypotension Continue Lasix 20 mg daily orally Hx Paroxysmal atrial fibrillation: holding eliquis in setting of planned AICD placement Hyperlipidemia: Continue statin therapy Exam Data for Last 24 hours Vital signs and Labs for Last 24 Hours: Temp Pulse Resp BP Pulse Ox O2 Del Method O2 Flow Rate 97.7 F 65 18 119/60 97 Nasal Cannula 2 09/19/23 12:00 09/19/23 12:00 09/19/23 12:00 09/19/23 12:00 09/19/23 12:00 09/19/23 13:00 09/19/23 13:00 Constitutional Constitutional: no acute distress *Routine HEENT Exam Head: Present normocephalic Eye: Present EOMI and PERRL ENT: Present mucous membranes moist *Routine Neck Exam Neck: Present supple; Absent lymphadenopathy *Routine Respiratory Exam Respiratory: Present CTA bilaterally *Routine Cardiovascular Exam Cardiovascular: Present RRR Comments: bradycardic *Routine Abdominal Exam Abdominal: Present soft and normoactive bowel sounds; Absent tenderness *Routine Extremities Exam Extremities: Absent cyanosis, clubbing or edema *Routine Skin Exam Skin: Present warm; Absent rash *Routine Neurological Exam Neurological: Present alert and oriented X3 DS: Diagnosis Discharge Diagnosis (1) Ventricular tachycardia: Status: Acute Code(s): I47.20 - Ventricular tachycardia, unspecified (2) Heart failure with reduced ejection fraction: Status: Acute Code(s): I50.20 - Unspecified systolic (congestive) heart failure (3) Paroxysmal atrial fibrillation: Status: Acute Code(s): I48.0 - Paroxysmal atrial fibrillation (4) HLD (hyperlipidemia): Status: Acute Code(s): E78.5 - Hyperlipidemia, unspecified Qualifiers: Hyperlipidemia type: unspecified Qualified Code(s): E78.5 - Hyperlipidemia, unspecified (5) Coronary artery disease: Status: Acute Code(s): I25.10 - Atherosclerotic heart disease of [place] coronary artery without angina pectoris Qualifiers: Associated angina: without angina Coronary Disease-Associated Artery/Lesion type: [place] artery [place] vs. transplanted heart: [place] heart Qualified Code(s): I25.10 - Atherosclerotic heart disease of [place] coronary artery without angina pectoris (6) Pulmonary edema: Status: Inactive Code(s): J81.1 - Chronic pulmonary edema Qualifiers: Chronicity: acute Qualified Code(s): J81.0 - Acute pulmonary edema (7) Ischemic cardiomyopathy: Status: Acute Code(s): I25.5 - Ischemic cardiomyopathy (8) AICD (automatic cardioverter/defibrillator) present: Status: Inactive Code(s): Z95.810 - Presence of automatic (implantable) cardiac defibrillator Meds Home Medications and Allergies Home Medications Medication Instructions Recorded Confirmed Type atorvastatin 40 mg tablet 40 mg PO DAILY High cholesterol 12/17/18 10/02/23 History apixaban 5 mg tablet 5 mg PO BID Blood thinner/Afib 11/03/21 10/02/23 History nitroglycerin 0.4 mg sublingual 0.4 mg sublingual Q5MINP PRN Angina 09/01/23 10/02/23 History tablet (Nitrostat) L.acidophilus-L.paracasei-B.bifidum-S.thermophl 1 cap PO DAILY PROBIOTIC 09/18/23 10/02/23 History 8 billion cell capsule (RisaQuad) clopidogrel 75 mg tablet 75 mg PO DAILY Blood Thinner 09/18/23 10/02/23 History empagliflozin 10 mg tablet 10 mg PO DAILY Heart Disease 09/18/23 10/02/23 History (Jardiance) furosemide 20 mg tablet 20 mg PO DAILY Fluid 09/18/23 10/02/23 History metoprolol succinate 25 mg 12.5 mg PO DAILY High Blood 09/18/23 10/02/23 History tablet,extended release 24 hr Pressure potassium chloride 20 mEq 40 meq PO BID Supplement 09/18/23 10/02/23 History tablet,extended release(part/cryst) (Klor-Con M) spironolactone 25 mg tablet 12.5 mg PO DAILY Fluid 09/18/23 10/02/23 History amiodarone 200 mg tablet 200 mg PO DAILY #30 tabs 10/02/23 10/02/23 Rx New Prescriptions to Start Prescriptions: Allergies Allergy/AdvReac Type Severity Reaction Status Date / Time Corticosteroids AdvReac Unknown Verified 10/02/23 13:35 (Glucocorticoids) allergy reaction Discharge Plan Disposition Patient Disposition: Home, Self-Care Discharge Order Discharge Orders: Discharge Order (Routine); Ordered 09/19/23 Ordered By: Darell Younger Follow up Plan Follow up with: Akash Arellano APRN [Referring] - Enter time for follow up (Please call for your follow up appt. ) Iker Bolton MD [Staff Physician] - 10/02/23 1:30 pm Prescriptions/Medication Reconciliation: Continued atorvastatin 40 MG tablet 40 mg PO DAILY nitroglycerin [Nitrostat] 0.4 mg tablet, sublingual 0.4 mg sublingual Q5MINP PRN (Reason: Angina) Patient Comments: dissolve 1 tablet under the tongue every 3 to 5 minutes as needed for chest pain. If you require two in a row for chest pain call 911 or go to ER. apixaban 5 MG tablet 5 mg PO BID clopidogrel 75 mg tablet 75 mg PO DAILY potassium chloride [Klor-Con M20] 20 mEq tablet,ER particles/crystals 40 meq PO BID furosemide 20 mg tablet 20 mg PO DAILY metoprolol succinate 25 mg tablet extended release 24 hr 12.5 mg PO DAILY Jardiance 10 mg tablet 10 mg PO DAILY RisaQuad 8 billion cell capsule 1 cap PO DAILY spironolactone 25 mg tablet 12.5 mg PO DAILY Discontinued Entresto 24-26 mg tablet 1 tab PO BID No Action amiodarone 200 mg tablet 200 mg PO DAILY Qty: 30 5RF Problem Reconciliation Problems Reviewed?: Yes Patient Discharge Instructions ACTIVITY: Ambulate as tolerated DIET: continue same diet Patient Instructions: Ventricular Tachycardia, DI for Heart Failure, DI for Automatic Cardioverter/Defibrillator Implantation, DI for Ventricular Tachycardia, DI for Surgical Site Infection Providers Primary Care Provider: Provider,Referral Admit Provider: Alli Summers Attending Provider: Alli Summers
== END 2023-09-19 14:53 | disposition home or self-care (01) | DRG 277 ==
LOC: 2ND 23:59 → ER 23:59
PROVIDERS: Internal Medicine; Nurse Practitioner Family; Admitting Provider Internal Medicine Adolescent Medicine; Emergency Provider Emergency Medicine; Visit Provider Internal Medicine Adolescent Medicine
PROC: 0JH608Z Insertion of Defibrillator Generator into Chest Subcutaneous Tissue and Fascia, Open Approach (ICD-10-PCS; CPT 33249; principal; 2023-09-18 12:30)
DX: I44.2 Atrioventricular block, complete (principal); I42.9 Cardiomyopathy, unspecified; I50.22 Chronic systolic (congestive) heart failure; J96.11 Chronic respiratory failure with hypoxia; I47.20 Ventricular tachycardia, unspecified; I25.5 Ischemic cardiomyopathy; I25.2 Old myocardial infarction; F03.90 Unspecified dementia, unspecified severity, without behavioral disturbance, psychotic disturbance, mood disturbance, and anxiety; E78.5 Hyperlipidemia, unspecified; I48.0 Paroxysmal atrial fibrillation; R00.1 Bradycardia, unspecified; I25.10 Atherosclerotic heart disease of native coronary artery without angina pectoris; Z95.5 Presence of coronary angioplasty implant and graft; Z45.02 Encounter for adjustment and management of automatic implantable cardiac defibrillator
CPT/HCPCS: 33249; 36415; 71045; 80048; 80053; 80061; 83880; 84436; 84439; 84443; 84484; 85014; 85018; 85025; 86850; 93005; 94640; 94760; 97162; 97166; 99291; C1769; C1882; C1895; C1898; C1900; J0282; J0692; J7060; P9016; Q9967

== ENCOUNTER 2023-09-20 12:24 | Emergency (ER) | payer MEDICARE, SELFPAY ==
[2023-09-20 12:26] VITALS: BP 119/63; PULSE 71; RESP 16; TEMP 36.7; O2SAT 100; BMI 32.8
--- NOTE | 2023-09-20 13:54 | HMH.EDGENADL ---
Discharge Plan Disposition Patient Disposition: Home, Self-Care Prescriptions Prescriptions: No Action atorvastatin 40 MG tablet 40 mg PO DAILY aspirin [Aspir-81] 81 MG tablet,delayed release (DR/EC) 81 mg PO DAILY nitroglycerin [Nitrostat] 0.4 mg tablet, sublingual 0.4 mg sublingual Q5MINP PRN (Reason: Angina) Patient Comments: dissolve 1 tablet under the tongue every 3 to 5 minutes as needed for chest pain. If you require two in a row for chest pain call 911 or go to ER. ranolazine 500 mg tablet extended release 12 hr 500 mg PO BID Patient Comments: TAKE ONE TABLET BY MOUTH TWICE DAILY apixaban 5 MG tablet 5 mg PO BID isosorbide mononitrate 30 mg tablet extended release 24 hr 30 mg PO DAILY Patient Comments: TAKE ONE TABLET BY MOUTH EVERY DAY clopidogrel 75 mg tablet 75 mg PO DAILY potassium chloride [Klor-Con M20] 20 mEq tablet,ER particles/crystals 40 meq PO BID furosemide 20 mg tablet 20 mg PO DAILY metoprolol succinate 25 mg tablet extended release 24 hr 12.5 mg PO DAILY Jardiance 10 mg tablet 10 mg PO DAILY RisaQuad 8 billion cell capsule 1 cap PO DAILY spironolactone 25 mg tablet 12.5 mg PO DAILY amiodarone 200 mg Tablet 200 mg PO BID 30 Days Qty: 60 0RF Referrals Follow up/Referrals: Provider,MD Charisse [Primary Care Provider] - See instructions Yonny Hyde MD [Staff Physician] - See instructions Activity Restrictions/Add. Instructions Additional Instructions/Restrictions: No definitive evidence of an AICD pocket infection at the moment. The slight amount of erythema surrounding your wound appears to be normal postoperative changes and there is no systemic signs or symptoms of illness such as fever and the wound itself looks excellent without any purulence or pathologic erythema around the wound. Return with any high fevers worsening pain spreading redness or other concerns please follow-up as soon as possible with your credit investigator. Clinical Impressions Clinical Impression: Encounter for evaluation of wound Discharge ED Provider: Ludwin Chao General Adult HPI General Stated complaint: post op 09/18, swollen at the site Time Seen by Provider: 09/20/23 13:42 History of Present Illness HPI narrative: Patient is a 78-year-old female with a history of ischemic cardiomyopathy recently admitted for sustained V. tach with an AICD that was placed on of this week. Since that time she has had a little bit of pain and swelling in the region and some slight erythema that has not been spreading no purulent drainage coming from the wound or fevers and she presents to the emergency department today for wound evaluation as she did not know exactly what to expect from this. She states the achiness has been improved with Tylenol but no other medications were prescribed for her pain. Pain is not severe and mainly worsened at night. Denies any other acute symptoms and states that her family member who is a COMPLEX DIRECTOR advised that she come to the emergency department. Related Data Home Medications Medication Instructions Recorded Confirmed aspirin 81 mg tablet,delayed 81 mg PO DAILY Heart Disease 12/17/18 09/18/23 release (Aspir-) atorvastatin 40 mg tablet 40 mg PO DAILY High cholesterol 12/17/18 09/18/23 apixaban 5 mg tablet 5 mg PO BID Blood thinner/Afib 11/03/21 09/18/23 nitroglycerin 0.4 mg sublingual 0.4 mg sublingual Q5MINP PRN Angina 09/01/23 09/18/23 tablet (Nitrostat) ranolazine 500 mg tablet,extended 500 mg PO BID Chest Pain 09/01/23 09/18/23 release,12 hr L.acidophilus-L.paracasei-B.bifidum-S.thermophl 1 cap PO DAILY PROBIOTIC 09/18/23 09/18/23 8 billion cell capsule (RisaQuad) clopidogrel 75 mg tablet 75 mg PO DAILY Blood Thinner 09/18/23 09/15/23 empagliflozin 10 mg tablet 10 mg PO DAILY Heart Disease 09/18/23 09/18/23 (Jardiance) furosemide 20 mg tablet 20 mg PO DAILY Fluid 1
[2023-09-20 14:07] VITALS: BP 121/64; PULSE 71; RESP 16; TEMP 36.7; O2SAT 100
--- NOTE | 2023-09-23 13:51 | SW/DCPLANNER ---
Follow up phone call w/ this patient: patient stated that she is doing well at home and does not have any needs/questions at this time.
== END 2023-09-20 14:08 | disposition home or self-care (01) ==
PROVIDERS: Emergency Provider Student in an Organized Health Care Education/Training Program
DX: Z48.01 Encounter for change or removal of surgical wound dressing (principal); Z95.810 Presence of automatic (implantable) cardiac defibrillator; Z86.79 Personal history of other diseases of the circulatory system; I48.0 Paroxysmal atrial fibrillation; I11.9 Hypertensive heart disease without heart failure; E78.5 Hyperlipidemia, unspecified; Z79.01 Long term (current) use of anticoagulants
CPT/HCPCS: 99281

== ENCOUNTER 2023-10-02 14:17 | Outpatient (CLI) | payer MEDICARE, SELFPAY ==
[2023-10-02 14:24] LABS: Microscopic, Urine URINE MICROSCOPIC (MICROSCOPIC)
[2023-10-02 14:44] LABS: Appearance,Urine CLEAR (Clear); Blood, Urine 1+ (Negative); Color,Urine YELLOW (Yellow); Glucose,Urine (UA) 1+ (Negative); Ketones,Urine Negative (Negative); Leukocyte Esterase,Urine 1+ (Negative); Nitrate,Urine POSITIVE (Negative); Protein,Urine TRACE (Negative); Specific Gravity, Urine >= 1.030 (1.005-1.030); Urobilinogen,Urine 0.2 EU/dl (0.2)
[2023-10-02 15:11] LABS: WBC,Urine 20-50 #/hpf (0-3)
[2023-10-02 15:12] LABS: Bacteria,Urine Trace /lpf; Calcium Oxalate Crystals,Urine Trace /lpf
[2023-10-02 15:53] LABS: Bilirubin,Urine 1+ (Negative)
== END 2023-10-02 23:59 ==
LOC: LAB 14:18
PROVIDERS: Visit Provider Nurse Practitioner Family
DX: E78.5 Hyperlipidemia, unspecified (principal); I21.9 Acute myocardial infarction, unspecified; I25.10 Atherosclerotic heart disease of native coronary artery without angina pectoris; I25.5 Ischemic cardiomyopathy; I47.20 Ventricular tachycardia, unspecified; I48.0 Paroxysmal atrial fibrillation; I50.20 Unspecified systolic (congestive) heart failure; K62.5 Hemorrhage of anus and rectum; R31.9 Hematuria, unspecified; Z79.899 Other long term (current) drug therapy; Z95.1 Presence of aortocoronary bypass graft; Z95.5 Presence of coronary angioplasty implant and graft; Z95.810 Presence of automatic (implantable) cardiac defibrillator; N39.0 Urinary tract infection, site not specified; B95.2 Enterococcus as the cause of diseases classified elsewhere
CPT/HCPCS: 81001; 87086

== ENCOUNTER 2023-11-17 16:08 | Outpatient (CLI) | payer MEDICARE, SELFPAY ==
[2023-11-17 16:50] LABS: Basophils % 0.5 % (0.1-2.0); Eosinophils # 0.1 K/mm3 (0.0-0.4); Eosinophils % 0.7 % (0.1-12.0); Hematocrit 34.4 % (37.0-47.0); Hemoglobin 10.6 g/dL (12.2-16.2); Lymphocytes # 2.3 K/mm3 (0.7-4.5); Lymphocytes % 29.3 % (10-50); Mean Corpuscular HGB Conc 30.7 g/dL (31.8-35.4); Mean Corpuscular Hemoglobin 25.9 pg (27.0-31.2); Mean Corpuscular Volume 84.6 fl (81-99); Mean Platelet Volume 11.2 fl (7.4-10.4); Monocytes # 0.4 K/mm3 (0.1-1.0); Monocytes % 5.1 % (1.7-9.3); Neutrophils % 64.4 % (37.0-80.0); Platelet Count 241 K/mm3 (142-424); Red Blood Count 4.07 M/mm3 (4.20-5.40); Red Cell Distribution Width 17.7 % (11.5-17.5); White Blood Count 7.8 K/mm3 (4.8-10.8)
[2023-11-17 17:27] LABS: Alanine Aminotransferase 16 U/L (12-78); Albumin Level 3.2 g/dl (3.5-5.0); Alkaline Phosphatase 82 U/L (38-126); Anion Gap 6.1 mEq/L (5-15); Aspartate Amino Transferase 28 U/L (14-36); Bilirubin,Direct 0.1 mg/dl (0.0-0.4); Bilirubin,Indirect 0.7 mg/dL (0.0-0.9); Bilirubin,Total 0.8 mg/dl (0.2-1.3); Bilirubin,Unconjugated 0.7 mg/dL (0.0-1.1); Blood Urea Nitrogen 8 mg/dl (7-17); Calcium 9.7 mg/dl (8.4-10.2); Carbon Dioxide 31 mmol/L (22.0-30.0); Chloride 104 mmol/L (98-107); Chol/HDL Ratio 3.5 (1-3.5); Cholesterol 128 mg/dl (140-200); Estimated Glomerular Filt Rate 61 ml/min (>60); GFR (African American) 74 ML/MIN (>60); Glucose 96 mg/dl (74-100); HDL Cholesterol 37 mg/dl (40-60); Potassium 5.1 mmoL/L (3.5-5.1); Sodium 136 mmol/L (136-145); Total Protein,Serum 6.3 g/dl (6.3-8.2); Triglycerides 114 mg/dl (30-150); VLDL Cholesterol 23 mg/dL (0-40)
[2023-11-17 17:38] LABS: Direct LDL Cholesterol 65.63 mg/dL (100-129)
[2023-11-17 17:47] LABS: Free T4 (Free Thyroxine) 1.75 ng/dl (0.78-2.19)
[2023-11-17 18:01] LABS: Thyroid Stimulating Hormone 1.23 uIU/mL (0.465-4.68)
== END 2023-11-17 23:59 ==
LOC: LAB 16:11
PROVIDERS: Visit Provider Internal Medicine
DX: K21.9 Gastro-esophageal reflux disease without esophagitis (principal); I11.9 Hypertensive heart disease without heart failure; R06.00 Dyspnea, unspecified; E11.9 Type 2 diabetes mellitus without complications; L29.9 Pruritus, unspecified; Z79.899 Other long term (current) drug therapy
CPT/HCPCS: 36415; 80048; 80061; 80076; 84439; 84443; 85025

== ENCOUNTER 2023-12-08 13:23 | Outpatient (CLI) | payer MEDICARE, SELFPAY ==
--- NOTE | 2023-12-08 13:26 | CA_ITS ---
APPROVED REPORT EXAM: Limited 2D Echocardiogram Door Machine Operator: Zeny Michel RDCS Ht: 5 ft 3 in Wt: 136lbs BSA: 1.64 BP: 109/57 mmHg Indications: CM 2D Dimensions Left Atrium 3.34 cm F: 2.7 - 3.8 M-Mode Dimensions RVDd 1.50 cm (0.9-2.6) LVDd 6.15 cm (3.5-5.7) Ao Diam 2.76 cm (2.0-3.7) LVDs 4.61 cm (3.5-5.7) IVSd 0.61 cm (0.6-1.1) PWd 0.72 cm (0.6-1.1) EF (Teich) 48.60% FS 25.00% EDV (Teich) 190.40 mL ESV (Teich) 97.80 mL Other Information Study Quality: Fair Conclusion This is a limited TTE to evaluate for LVEF. Limited windows were obtained. The left ventricle is normal in size. Normal LV wall thickness is present. There is severe hypokinesis of the basal inferior, septal, and inferoseptal LV senior. LVEF is 30%. Compared to prior limited TTE from 09/11/2023, the LVEF is unchanged. Electronically signed by : Pallavi Hyde MD 12/09/2023 20:41:13
== END 2023-12-08 23:59 ==
LOC: RT 13:24
PROVIDERS: Visit Provider Internal Medicine
DX: R06.00 Dyspnea, unspecified (principal); I25.5 Ischemic cardiomyopathy; I47.20 Ventricular tachycardia, unspecified; I48.0 Paroxysmal atrial fibrillation; I50.20 Unspecified systolic (congestive) heart failure; I25.10 Atherosclerotic heart disease of native coronary artery without angina pectoris; Z79.899 Other long term (current) drug therapy; Z95.810 Presence of automatic (implantable) cardiac defibrillator; Z95.5 Presence of coronary angioplasty implant and graft; Z95.1 Presence of aortocoronary bypass graft; E78.5 Hyperlipidemia, unspecified; R31.9 Hematuria, unspecified; K62.5 Hemorrhage of anus and rectum; Z79.01 Long term (current) use of anticoagulants
CPT/HCPCS: 93308

== ENCOUNTER 2023-12-16 14:45 | Outpatient (CLI) | payer MEDICARE, SELFPAY ==
[2023-12-16 15:58] LABS: Basophils # 0.1 K/mm3 (0-0.2); Basophils % 0.7 % (0.1-2.0); Eosinophils # 0.1 K/mm3 (0.0-0.4); Eosinophils % 0.7 % (0.1-12.0); Hematocrit 35.8 % (37.0-47.0); Hemoglobin 10.6 g/dL (12.2-16.2); Lymphocytes # 2.1 K/mm3 (0.7-4.5); Lymphocytes % 27.3 % (10-50); Mean Corpuscular HGB Conc 29.4 g/dL (31.8-35.4); Mean Corpuscular Volume 84.8 fl (81-99); Monocytes # 0.4 K/mm3 (0.1-1.0); Monocytes % 4.9 % (1.7-9.3); Neutrophils # 5.1 K/mm3 (1.8-7.8); Neutrophils % 66.4 % (37.0-80.0); Platelet Count 259 K/mm3 (142-424); Red Blood Count 4.22 M/mm3 (4.20-5.40); Red Cell Distribution Width 17.9 % (11.5-17.5); White Blood Count 7.6 K/mm3 (4.8-10.8)
[2023-12-16 17:24] LABS: Chloride 101 mmol/L (98-107); Sodium 137 mmol/L (136-145)
[2023-12-16 17:25] LABS: Potassium 3.9 mmoL/L (3.5-5.1)
[2023-12-16 17:28] LABS: Anion Gap 10.9 mEq/L (5-15); Blood Urea Nitrogen 9 mg/dl (7-17); Calcium 9.7 mg/dl (8.4-10.2); Carbon Dioxide 29 mmol/L (22.0-30.0); Estimated Glomerular Filt Rate 54 ml/min (>60); GFR (African American) 65 ML/MIN (>60); Glucose 98 mg/dl (74-100)
[2023-12-18 10:08] LABS: Iron 30 ug/dL (37-170)
[2023-12-18 10:17] LABS: Total Iron Binding Capacity 324 ug/dL (265-497)
== END 2023-12-16 23:59 ==
LOC: LAB 14:46
PROVIDERS: Physician Assistant; PCP Nurse Practitioner Family; Visit Provider Internal Medicine
DX: D64.9 Anemia, unspecified (principal); D50.9 Iron deficiency anemia, unspecified; I25.10 Atherosclerotic heart disease of native coronary artery without angina pectoris; Z79.899 Other long term (current) drug therapy; Z95.810 Presence of automatic (implantable) cardiac defibrillator; Z95.5 Presence of coronary angioplasty implant and graft; Z95.1 Presence of aortocoronary bypass graft
CPT/HCPCS: 36415; 80048; 83540; 83550; 85025

== ENCOUNTER 2024-01-30 10:21 | Outpatient (CLI) | payer MEDICARE, SELFPAY ==
[2024-01-30 11:07] LABS: Blood Urea Nitrogen 13 mg/dl (7-17); Estimated Glomerular Filt Rate 48 ml/min (>60); GFR (African American) 58 ML/MIN (>60)
== END 2024-01-30 23:59 | disposition home or self-care (01) ==
LOC: RAD 10:21
PROVIDERS: PCP Internal Medicine; Visit Provider Internal Medicine Medical Oncology
DX: K14.8 Other diseases of tongue (principal); R22.1 Localized swelling, mass and lump, neck
CPT/HCPCS: 36415; 82565; 84520

== ENCOUNTER 2024-02-03 12:23 | Outpatient (CLI) | payer MEDICARE, SELFPAY ==
--- NOTE | 2024-02-03 12:27 | CT_ITS ---
FINAL REPORT TECHNIQUE: Thin section axial CT images were obtained through the neck after intravenous contrast administration. Coronal and sagittal reformats were also obtained. This study was performed with techniques to keep radiation doses as low as reasonably achievable (ALARA). Individualized dose reduction techniques using automated exposure control or adjustment of mA and/or kV according to the patient''s size were employed. CLINICAL HISTORY: HEAD AND NECK CANCER swelling in neck. bb placed COMPARISON: None FINDINGS: The nasopharynx, hypopharynx and larynx are unremarkable. In the oropharynx there is diffuse enlargement of the tongue, that may be secondary to edema. No well-defined mass is identified. Postoperative changes are present in the right side of the neck. There is no mass or adenopathy. There is calcified plaque present at the carotid bifurcations. A 6 mm nonspecific right thyroid nodule is noted. Moderate changes of emphysema are present. There are multiple small nodules present in the lung apices bilaterally, measuring less than 10 mm in size, neoplastic or reactive. There is opacification of the right posterior ethmoid air cells. There is no acute osseous abnormality. IMPRESSION: Diffuse enlargement of the tongue, that may represent edema. No well-defined masses identified. 6 mm nonspecific right thyroid nodule. Calcified plaque present in the carotid bifurcations. Multiple small nodules in the lung apices, neoplastic or reactive. Recommend a follow-up CT of the chest in 3 to 6 months. Reviewed, Interpreted and Dictated by Sukhjinder Massey III, MD Transcribed by Janae Camarena Authenticated and [facility]
[2024-02-03] MEDS: IOPAMIDOL-370 (76%);100ML BOTTLE 55 ML IV (12:53)
[2024-02-03] MEDS: SODIUM CHLORIDE 0.9% 10ML SYR (RAD ONLY) 10 ML IV (12:53)
== END 2024-02-03 23:59 | disposition home or self-care (01) ==
LOC: RAD 12:23
PROVIDERS: PCP Internal Medicine; Visit Provider Internal Medicine Medical Oncology
DX: R22.1 Localized swelling, mass and lump, neck (principal); C76.0 Malignant neoplasm of head, face and neck
CPT/HCPCS: 70491; Q9967

== ENCOUNTER 2024-05-06 13:26 | Emergency (ER) | payer MEDICARE, SELFPAY ==
[2024-05-06] VITALS (10 sets, daily range): BP systolic 87–104; BP diastolic 45–60; PULSE 60–72; RESP 21–22; TEMP 36.3–36.9; O2SAT 88–100; BMI 17.7
--- NOTE | 2024-05-06 13:39 | ECG_ITS ---
APPROVED REPORT Exam: Resting ECG HR:63 bpm ECG Measurements Heart Rate 63 AXES [place] 194 P 82 QRSd 130 QRS 19 QT 446 T 98 QTc 454 Conclusion ELECTRONIC VENTRICULAR PACEMAKER Electronically signed by : MISAEL FARAH, 05/07/2024 07:10:54
--- NOTE | 2024-05-06 13:47 | PC.NURSE ---
pt reports at least 50+ pound weight loss in the last six months. large mass noted to neck area. pts tongue is also swollen. she states she has been seen by multiple doctors with no answers provided. MD notifed of pt condition
--- NOTE | 2024-05-06 13:57 | CT_ITS ---
FINAL REPORT TECHNIQUE: Thin section axial CT images were obtained through the neck after intravenous contrast administration. Coronal and sagittal reformats were also obtained. This study was performed with techniques to keep radiation doses as low as reasonably achievable (ALARA). Individualized dose reduction techniques using automated exposure control or adjustment of mA and/or kV according to the patient''s size were employed. CLINICAL HISTORY: floor of mouth and tongue swelling COMPARISON: 02/03/2024 FINDINGS: The nasopharynx is unremarkable. Prominence of the tongue has increased since prior, may represent diffuse soft tissue swelling. This results in some narrowing of the oropharyngeal airway. No well-defined mass is identified. There are bilateral carotid calcifications without evidence of significant stenosis. The thyroid is somewhat enlarged and heterogeneous. The upper thorax demonstrates moderate emphysema. There are multiple small nodules which are nonspecific, may represent granulomas versus metastases. IMPRESSION: Diffuse enlargement of the tongue, favor inflammation/edema. Multiple small nodules, may be granulomas versus metastases. Reviewed, Interpreted and Dictated by Sukhjinder Massey III, MD Transcribed by Franca Murillo Authenticated and [facility]
--- NOTE | 2024-05-06 13:57 | HMH.EDGENADL ---
Discharge Plan Disposition Patient Disposition: Xfer Short-Term Hosp Chief Complaint: Weakness Prescriptions Prescriptions: No Action metoprolol succinate [Toprol XL] 25 mg tablet extended release 24 hr 25 mg PO DAILY Qty: 30 5RF furosemide 40 mg tablet 20 mg PO .M, W, F spironolactone 25 mg tablet 25 mg PO .M, W, F Qty: 30 5RF potassium chloride 10 mEq capsule, extended release PO .M, W, Patient Comments: Take 2 capsules on , , F Acidophilus Capsule PO Patient Comments: TAKE ONE CAPSULE BY MOUTH EVERY DAY ferrous sulfate [Feosol] 325 mg (65 mg iron) tablet 325 mg PO Q OTHER DAY Qty: 15 3RF atorvastatin 40 MG tablet 40 mg PO DAILY nitroglycerin [Nitrostat] 0.4 mg tablet, sublingual 0.4 mg sublingual Q5MINP PRN (Reason: Angina) Patient Comments: dissolve 1 tablet under the tongue every 3 to 5 minutes as needed for chest pain. If you require two in a row for chest pain call 911 or go to ER. apixaban 5 MG tablet 5 mg PO BID clopidogrel 75 mg tablet 75 mg PO DAILY RisaQuad 8 billion cell capsule 1 cap PO DAILY Referrals Follow up/Referrals: Iker Lewis DO [Primary Care Provider] - See instructions Clinical Impressions Clinical Impression: Malnutrition, ABLA (acute blood loss anemia), Glossal swelling Print Language Print Language: Spanish Discharge ED Provider: Tobi Hoffmann General Adult HPI General Chief complaint: Weakness Stated complaint: low bp, problems with pace maker, dizzy Time Seen by Provider: 05/06/24 13:57 Mode of Arrival: Ambulatory Source of Information: Patient and Spouse Limitations: No Limitations Description of Symptoms (Recalled from ER Triage Doc. by RN): hypotension,weakness,wt loss,mass to neck and swollen tongue History of Present Illness HPI narrative: Please note that above description of symptoms, in this electronic medical record under categorization of recalled from ER triage doctor by RN are reflective of an initial nursing assessment, however, is not reflective of my full history and physical exam that was personally taken and clarified. Consequentially, this preceding description of symptoms, which may include the patient's categorized chief complaint in the EMR, do not reflect my personal clinical impression, and the ultimate description of history of present illness and patient stated complaints should be deferred to this section of the note. Unless stated otherwise or congruent with this section of the note, additional signs, symptoms, or incongruence should be interpreted as inaccurate with my clinical impression. Related Data Home Medications ?Medication ?Instructions ?Recorded ?Confirmed atorvastatin 40 mg tablet 40 mg PO DAILY High cholesterol 12/17/18 03/23/24 apixaban 5 mg tablet 5 mg PO BID Blood thinner/Afib 11/03/21 03/23/24 nitroglycerin 0.4 mg sublingual 0.4 mg sublingual Q5MINP PRN Angina 09/01/23 03/23/24 tablet (Nitrostat) L.acidophilus-L.paracasei-B.bifidum-S.thermophl 1 cap PO DAILY PROBIOTIC 09/18/23 03/23/24 8 billion cell capsule (RisaQuad) clopidogrel 75 mg tablet 75 mg PO DAILY Blood Thinner 09/18/23 03/23/24 Lactobacillus acidophilus PO 10/16/23 03/23/24 (Acidophilus capsule) furosemide 40 mg tablet 20 mg PO .M, W, F 03/23/24 03/23/24 potassium chloride 10 mEq meq PO .M, W, F 03/23/24 03/23/24 capsule,extended release Previous Rx's ?Medication ?Instructions ?Recorded ferrous sulfate 325 mg (65 mg 325 mg PO Q OTHER DAY #15 tabs 12/19/23 iron) tablet (Feosol) metoprolol succinate 25 mg 25 mg PO DAILY #30 tabs 03/23/24 tablet,extended release 24 hr (Toprol XL) spironolactone 25 mg tablet 25 mg PO .M, W, F Fluid #30 tabs 03/23/24 Allergies Allergy/AdvReac Type Severity Reaction Status Date / Time Corticosteroids Allergy Unknown Unknown Verified 05/06/24 14:46 (Glucocorticoids) allergy reaction [facility] Disclaimer: The information contained in this section may have been updated after the patient was seen, as this information can be updated by other users. Medical History On continuous oral anticoagulation Automatic implantable cardioverter-defibrillator in situ On amiodarone therapy Rectal bleeding Hematuria Encounter for evaluation of wound Ischemic cardiomyopathy HLD (hyperlipidemia) Ventricular tachycardia Pleural effusion, left Acute and chronic respiratory failure with hypoxia Pulmonary edema Chronic respiratory failure with hypoxia Pneumonia Coronary artery disease Paroxysmal atrial fibrillation Heart failure with reduced ejection fraction Elevated troponin Dementia Colon cancer Myocardial infarction Generalized weakness COVID-19 Surgical History AICD (automatic cardioverter/defibrillator) present Status post carotid surgery Hx of cholecystectomy Hx of CABG 1979 H/O heart artery stent AUG 2023 History of colon resection Social History Smoking Status: Never smoker alcohol intake: never substance use type: denies use current occupational status: retired Travel in the last 8 weeks: None ROS Obtained: Yes All systems reviewed & no additional complaints except as documented Physical Exam General General appearance: alert Head Head exam: atraumatic and normocephalic Eye Eye exam: Present normal appearance, PERRL and EOMI ENT ENT exam: Present other (Angioedema. Tongue swollen, tongue raised in mouth with floor of mouth swelling. No stridor, no distress. Patient states this is chronic. Range of motion of neck normal. No obvious lymphadenopathy) Neck Neck exam: Present normal inspection, full ROM and trachea midline; Absent lymphadenopathy Respiratory Respiratory exam: Absent respiratory distress, wheezes, stridor, accessory muscle use or prolonged expiratory phase Cardiovascular Cardiovascular exam: Present regular rate, normal rhythm and other (Pulses equal symmetric in upper and lower extremities) Abdominal Exam Abdominal exam: Present soft; Absent distention, tenderness or pulsatile mass Extremities Exam Extremities exam: Absent edema Neurological Exam Neurological exam: Present alert, oriented X3 and CN II-XII intact; Absent motor sensory deficit Skin Skin exam: Present warm and dry; Absent diaphoresis or erythema Medical Decision Making Medical Records Medical records reviewed: Yes I reviewed the patient's medical records. Jose Luis Inquiry Pt receiving controlled substance: No Jose Luis was queried for this patient: No Vital Signs: 05/06/24 13:27 05/06/24 13:50 05/06/24 14:14 Temperature 98.4 F Temperature Source Oral Pulse Rate Pulse Rate [Right] 70 Respiratory Rate 22 Blood Pressure 93/56 L Blood Pressure [Right Arm] 101/47 L Blood Pressure Mean 67 Blood Pressure Mean [Right Arm] 65 02 Sat by Pulse Oximetry 88 L 93 L Oxygen Delivery Method Room Air Room Air Oxygen Flow Rate (LPM) 05/06/24 14:30 05/06/24 15:00 05/06/24 15:02 Temperature Temperature Source Pulse Rate 63 63 Pulse Rate [Right] Respiratory Rate Blood Pressure 96/47 L 89/45 L 87/46 L Blood Pressure [Right Arm] Blood Pressure Mean 63 Blood Pressure Mean [Right Arm] 02 Sat by Pulse Oximetry 92 L 92 L Oxygen Delivery Method Oxygen Flow Rate (LPM) 05/06/24 15:42 05/06/24 16:00 Temperature Temperature Source Pulse Rate 66 60 Pulse Rate [Right] Respiratory Rate Blood Pressure 96/50 L 94/47 L Blood Pressure [Right Arm] Blood Pressure Mean Blood Pressure Mean [Right Arm] 02 Sat by Pulse Oximetry 96 95 Oxygen Delivery Method Nasal Cannula Nasal Cannula Oxygen Flow Rate (LPM) 3 3 Lab Data Lab Results 05/06/24 14:13: WBC 10.3, RBC 2.27 L, Hgb 7.4 L, Hct 23.8 L, MCV 105.0 H, MCH 32.7 H, MCHC 31.2 L, RDW 19.2 H, Plt Count 282, MPV 10.1, Neut % (Auto) 74.9, Lymph % (Auto) 21.0, Wells % (Auto) 3.5, Eos % (Auto) 0.4, Baso % (Auto) 0.3, Neut # (Auto) 7.7, Lymph # (Auto) 2.2, Wells # (Auto) 0.4, Eos # (Auto) 0.0, Baso # (Auto) 0.0, Sodium 137, Potassium 4.1, Chloride 100, Carbon Dioxide 33 H, Anion Gap 8.1, BUN 18 H, Creatinine 0.80, Estimated Creat Clear 38, Estimated GFR 70, Est GFR ( Amer) 84, Glucose 95, Lactate 3.4 H, Calcium 8.4, Total Bilirubin 0.8, AST 42 H, ALT 22, Alkaline Phosphatase 65, Total Protein 5.9 L, Albumin 3.0 L, Globulin 2.9, Albumin/Globulin Ratio 1.0 L, TSH 1.86, Thyroxine (T4) 14.9 H, PTH Intact 59.7 H 05/06/24 14:13 05/06/24 14:13 Orders (Tests/Meds): ED MEDICATIONS Generic Name Dose Route Start Last Admin Trade Name Freq PRN Reason Stop Dose Admin Lactated Ringer's 1,780 mls @ 890 mls/hr 05/06/24 15:46 05/06/24 15:54 Lactated Ringer's 1000 Ml Bag 30 ml/kg infuse over 2 hr (1780 ml) 05/06/24 17:45 890 mls/hr IV Administration .Q2H ONE Vancomycin HCl 1,000 mg/ 250 mls @ 125 mls/hr 05/06/24 16:00 Sodium Chloride IV 05/06/24 17:59 ONCE ONE Miscellaneous 1 each 05/06/24 16:00 Vancomycin Consult Request NOTAPPLIC 06/05/24 15:59 CONSULT PHARMACY [facility]ONATHAN Discontinued Medications Generic Name Dose Route Start Last Admin Trade Name Freq PRN Reason Stop Dose Admin Acetaminophen 1,000 mg 05/06/24 14:58 05/06/24 15:04 Acetaminophen 1,000mg/100ml Vial IV 05/06/24 14:59 1,000 mg ONCE ONE Administration Lactated Ringer's 1,000 mls @ 999 mls/hr 05/06/24 13:59 05/06/24 14:09 Lactated Ringer's 1000 Ml Bag IV 05/06/24 14:59 999 mls/hr .Q1H1M ONE Administration Cefepime HCl 2 gm/ Sodium 100 mls @ 200 mls/hr 05/06/24 15:46 05/06/24 15:55 Chloride IV 05/06/24 16:15 200 mls/hr ONCE ONE Administration Iopamidol 75 ml 05/06/24 14:41 05/06/24 14:43 Iopamidol-370 (76%);100ml Bottle IV 05/06/24 14:42 75 ml ONCE ONE Administration Ketorolac Tromethamine 15 mg 05/06/24 14:58 05/06/24 15:04 Ketorolac 30mg/Ml Vial IV 05/06/24 14:59 15 mg ONCE ONE Administration Sodium Chloride 10 ml 05/06/24 14:41 05/06/24 14:43 Sodium Chloride 0.9% 10ml Syr (Rad Only) IV 05/06/24 14:42 10 ml ONCE ONE Administration ORDERS Category Date Time Status CT soft tissue neck w con Stat Cat Scan 05/06/24 13:57 Completed CBC w/Auto Diff [Complete Blood Count Auto Diff] Stat Lab 05/06/24 14:13 Completed CMP [Comprehensive Metabolic Panel] Stat Lab 05/06/24 14:13 Completed Intact Parathyroid Hormone Stat Lab 05/06/24 14:13 Completed Lactic Acid Stat Lab 05/06/24 14:13 Completed T4 (Thyroxine) Stat Lab 05/06/24 14:13 Completed TSH [Thyroid Stimulating Hormone] Stat Lab 05/06/24 14:13 Completed Blood Culture Stat Micro 05/06/24 14:13 Received Medical Decision Narrative: 78-year-old female history of hypertension, hyperlipidemia, ischemic cardiomyopathy with AICD in place, A-fib on Eliquis, chronic throat and tongue swelling having been seen by numerous specialty providers presenting with weakness, tongue and throat swelling, further evaluation. Patient states has been going for months. She had recent PET scan done in [place], it was reportedly negative. Patient has had 60 pound weight loss in 6 months unintended, largely because she does not feel she can eat and drink the same way that she normally should or needs to. No night sweats, fevers, difficulty breathing, pain with range of motion of neck, chest pain, recent travel, new medications, or any other concerns. Patient History was obtained via conversation with patient and . On arrival, patient hemodynamically stable, alert, [oriented x4, ][appropriate, ]GCS [15], moving all extremities spontaneously, pupils equal and reactive to light. Full physical exam performed and significant for swelling of the tongue and floor of mouth with elevation of the tongue. Range of motion of neck normal. No stridor. Patient speaking in full sentences, bilateral breath sounds clear to auscultation. No extra or abnormal cardiac sounds. Lower extremities are swollen about the feet, pulses equal and symmetric. Abdomen soft, nontender, nondistended. Differential includes Milton's angina, hypothyroidism, goiter, soft tissue swelling, malignancy, amyloidosis, among others. Patient placed on continuous cardiac monitoring and continuous pulse ox with initial blood pressure 101/47, heart rate 70, saturation 88% on room air. Patient was given IV fluids for symptomatic management[ and correction of underlying abnormalities]. Workup independently interpreted and significant for no leukocytosis, but hemoglobin dropped 3 g over 5 months. Platelets normal. Nonactionable chemistry, lactate elevated at 3.4. LFTs normal. Patient's protein and albumin both low concern for malnutrition. TSH normal at 1.68, T4 elevated mildly at 14.9. PTH mildly elevated 59.7. On independent interpretation of imaging, patient has swelling about the tongue and floor of mouth with concern for tumors versus granulomas versus deposition. See radiology read for full review of final results. Otolaryngology at [facility] was contacted and case was discussed at length, graciously excepting transfer. Because patient high risk for clinical decompensation if discharged, deemed appropriate for transfer and inpatient admission. Results were relayed to patient who voiced understanding and patient was agreeable to transfer, inpatient admission, and management. Patient was graciously accepted and transferred to for further definitive management, under Dr. Watkins. Production Lead disclaimer Much of this encounter note is an electronic rail car maintenance mechanic spoken language to printed text. Electronic rail car maintenance mechanic of the spoken language may permit errors. Although I have reviewed the note, some errors may still exist. Critical Care Critical Care Time Critical Care Time: No
[2024-05-06] MEDS: LACTATED RINGERS 1000ML 1,000 ML 999 ML IV (14:09)
[2024-05-06 14:24] LABS: Basophils % 0.3 % (0.1-2.0); Eosinophils % 0.4 % (0.1-12.0); Hematocrit 23.8 % (37.0-47.0); Hemoglobin 7.4 g/dL (12.2-16.2); Lymphocytes # 2.2 K/mm3 (0.7-4.5); Mean Corpuscular HGB Conc 31.2 g/dL (31.8-35.4); Mean Corpuscular Hemoglobin 32.7 pg (27.0-31.2); Mean Platelet Volume 10.1 fl (7.4-10.4); Monocytes # 0.4 K/mm3 (0.1-1.0); Monocytes % 3.5 % (1.7-9.3); Neutrophils # 7.7 K/mm3 (1.8-7.8); Neutrophils % 74.9 % (37.0-80.0); Platelet Count 282 K/mm3 (142-424); Red Blood Count 2.27 M/mm3 (4.20-5.40); Red Cell Distribution Width 19.2 % (11.5-17.5); White Blood Count 10.3 K/mm3 (4.8-10.8)
[2024-05-06 14:27] LABS: Chloride 100 mmol/L (98-107); Sodium 137 mmol/L (136-145)
[2024-05-06 14:28] LABS: Potassium 4.1 mmoL/L (3.5-5.1)
[2024-05-06 14:30] LABS: Alanine Aminotransferase 22 U/L (12-78); Anion Gap 8.1 mEq/L (5-15); Aspartate Amino Transferase 42 U/L (14-36); Bilirubin,Total 0.8 mg/dl (0.2-1.3); Blood Urea Nitrogen 18 mg/dl (7-17); Carbon Dioxide 33 mmol/L (22.0-30.0); Creatinine Clearance Estimated 38 mL/min (50-200); Estimated Glomerular Filt Rate 70 ml/min (>60); GFR (African American) 84 ML/MIN (>60)
[2024-05-06 14:31] LABS: Alkaline Phosphatase 65 U/L (38-126); Calcium 8.4 mg/dl (8.4-10.2); Globulin 2.9 g/dL (1.3-3.2); Glucose 95 mg/dl (74-100); Total Protein,Serum 5.9 g/dl (6.3-8.2)
[2024-05-06 14:33] LABS: Lactic Acid 3.4 mmol/L (0.7-2.1)
[2024-05-06] MEDS: IOPAMIDOL-370 (76%);100ML BOTTLE 75 ML IV (14:43)
[2024-05-06] MEDS: SODIUM CHLORIDE 0.9% 10ML SYR (RAD ONLY) 10 ML IV (14:43)
[2024-05-06 14:49] LABS: T4 (Thyroxine) 14.9 ug/dl (5.53-11.0)
--- NOTE | 2024-05-06 15:00 | PC.NURSE ---
spoke with MD regarding pt hypotension. currently has fluids infusing
[2024-05-06] MEDS: KETOROLAC 30MG/ML VIAL 15 MG IV (15:04)
[2024-05-06] MEDS: ACETAMINOPHEN 1,000MG/100ML VIAL 1000 MG IV (15:04)
[2024-05-06 15:18] LABS: Thyroid Stimulating Hormone 1.86 uIU/mL (0.465-4.68)
--- NOTE | 2024-05-06 15:30 | PC.NURSE ---
pt pale and hypotensive. MD notified
[2024-05-06 15:40] LABS: Intact Parathyroid Hormone 59.7 pg/mL (7.5-53.5)
[2024-05-06] MEDS: LACTATED RINGERS 1000ML 1,780 ML 890 ML IV (15:54)
[2024-05-06] MEDS: CEFEPIME HCL 2 GM in 0.9 % SODIUM CHLORIDE 100 ML IV (15:55)
--- NOTE | 2024-05-06 16:07 | PC.NURSE ---
calling [facility] at this time.
--- NOTE | 2024-05-06 16:09 | PC.NURSE ---
Dr. Hoffmann at bedside
[2024-05-06] MEDS: VANCOMYCIN CONSULT REQUEST 1 EACH NOTAPPLIC (16:15)
--- NOTE | 2024-05-06 16:16 | PC.NURSE ---
Dr. Hoffmann s/w [facility] center
--- NOTE | 2024-05-06 16:50 | PC.NURSE ---
i spoke with Dr. Carlos regarding pt sounding wet and having a new onset productive cough. stopped sepsis bolus per MD.
--- NOTE | 2024-05-06 17:00 | PC.NURSE ---
1700-respiratory @ bedside attempting to suction pt. 1710- pt noted to be pale an diaphoretic. saturation currently unstable on 3lnc. She is coughing. 1710- Dr. Carlos @ bedside wants to put pt on positive pressure,called respiratory back to bedside but pt saturation 74%. 1725 [facility] called to transport pt to [facility] due to pt becoming increasingly lethargic with increased work of breathing, 1726 House Notified Pt moved to Room 3 preparing to intubate due to pt work of breathing with Dr. Carlos @ bedside. Pads in place 1730- Thuri with anesthesia @ bedside 1733 20 G ultrasound guided IV to LUE. Levophed infusing 1734 Ketamine 1735- Succ in 1736-7.5 ETT +color change Rubén positive breath sounds 21 cm @ the lip. 1756 [facility] @ bedside.
[2024-05-06] MEDS: VANCOMYCIN HCL 1,000 MG in 0.9 % SODIUM CHLORIDE 250 ML 125 MG IV (17:11)
[2024-05-06] MEDS: NOREPINEPHRINE BITARTRATE/D5W 8 MG/250 ML PLAST..BAG 3.75 MG IV (17:18)
--- NOTE | 2024-05-06 17:24 | XR_ITS ---
PROCEDURE INFORMATION: Exam: XR Chest Exam date and time: 05/06/2024 5:36 PM Age: 78 years old Clinical indication: Device placement; Ett placement (vent status); Additional info: Dyspnea, hypoxia TECHNIQUE: Imaging protocol: Radiologic exam of the chest. Views: 1 view. COMPARISON: No relevant prior studies available. FINDINGS: Tubes, catheters and devices: A 3 lead internal cardiac device implanted at the left chest with leads extending to the right heart. Endotracheal tube terminates at the level of the clavicles. Lungs: Left basilar opacities partially silhouette the diaphragm are favored to represent combination of atelectasis/pleural effusion/consolidation. Pleural spaces: See Lungs finding. Heart/Mediastinum: Unremarkable. No cardiomegaly. Bones/joints: Unremarkable. IMPRESSION: 1. Endotracheal tube terminates at the level of the clavicles. 2. Left basilar opacities partially silhouette the diaphragm are favored to represent combination of atelectasis/pleural effusion/consolidation.
[2024-05-06] MEDS: KETAMINE 50MG/1ML SYRINGE 75 MG IV (17:34)
[2024-05-06] MEDS: SUCCINYLCHOLINE 20MG/ML 10 ML MDV 50 MG IV (17:35)
[2024-05-06] MEDS: MIDAZOLAM 5MG/ML 1ML VIAL 10 MG IV (17:44)
--- NOTE | 2024-05-06 17:44 | PC.NURSE ---
i spoke with [facility] regarding pt change in condition. Pt will now be going by helicopter to [facility]. ETA 15 mins
--- NOTE | 2024-05-06 17:45 | PC.NURSE ---
Mina Murphy calling [facility] to update accepting DR on pt status
--- NOTE | 2024-05-06 17:49 | PC.NURSE ---
o/p with [facility] physician about pt status update
[2024-05-06] MEDS: FENTANYL CITRATE/PF 1,000 MCG in 0.9 % SODIUM CHLORIDE 80 ML 2.5 MCG IV (18:15)
--- NOTE | 2024-05-06 18:15 | PC.NURSE ---
Report called to [facility] in [facility] ICU due to Bed change.
[2024-05-06] MEDS: MIDAZOLAM HCL IN 0.9 % NACL/PF 50 MG/50 ML PLAST..BAG IV (18:16)
[2024-05-06 18:18] LABS: Reflex Lactic Add Lactic Reflex
--- NOTE | 2024-05-06 21:06 | PC.NURSE ---
Took phone call from Huang at [facility] in regards to seeing what antibiotics this patient was given.
== END 2024-05-06 18:30 | disposition short-term general hospital (02) ==
PROVIDERS: Emergency Provider Emergency Medicine; PCP Internal Medicine
DX: R22.0 Localized swelling, mass and lump, head (principal); R74.02 Elevation of levels of lactic acid dehydrogenase [LDH]; D62 Acute posthemorrhagic anemia; E46 Unspecified protein-calorie malnutrition; I48.0 Paroxysmal atrial fibrillation; I11.9 Hypertensive heart disease without heart failure; I25.10 Atherosclerotic heart disease of native coronary artery without angina pectoris; E78.5 Hyperlipidemia, unspecified; Z79.01 Long term (current) use of anticoagulants; Z95.5 Presence of coronary angioplasty implant and graft; I25.5 Ischemic cardiomyopathy; Z95.810 Presence of automatic (implantable) cardiac defibrillator; J96.01 Acute respiratory failure with hypoxia; I95.89 Other hypotension
CPT/HCPCS: 31500; 70491; 71045; 80050; 80053; 83605; 83970; 84436; 84443; 85025; 87040; 93005; 96361; 96365; 96366; 96367; 96375; 99291; J0131; J0330; J1885; J2250; J3010; J3370; J7030; J7120; Q9967